=== PATIENT | female | born 1940 | race Caucasian/White ===

== ENCOUNTER 2021-04-15 08:23 | Observation (INO) | payer MEDICARE, OTHER, SELFPAY ==
[2021-04-15] VITALS (11 sets, daily range): BP systolic 160–188; BP diastolic 74–96; PULSE 53–87; RESP 16–21; TEMP 36.4–37; O2SAT 95–100; BMI 23.7
--- NOTE | 2021-04-15 | CTR_ITS ---
PROCEDURE INFORMATION: Exam: CT Head Without Contrast Exam date and time: 04/15/2021 8:36 AM Age: 80 years old Clinical indication: Weakness, facial; Additional info: Stroke alert TECHNIQUE: Imaging protocol: Computed tomography of the head without contrast. Radiation optimization: All CT scans at this facility use at least one of these dose optimization techniques: automated exposure control; mA and/or kV adjustment per patient size (includes targeted exams where dose is matched to clinical indication); or iterative reconstruction. Other technique: STROKE PROTOCOL was implemented. COMPARISON: CT head wo con* [id number] 01/04/2017 2:56 PM RADIATION DOSE METRICS: Total DLP (mGy-cm): 763.25 FINDINGS: Brain: Possible subtle loss of brown-white matter differentiation in the right frontal lobe, concerning for watershed infarct. No hemorrhage, mass effect or midline shift. There is minimal foci of decreased attenuation in the periventricular and subcortical white matter, likely representing chronic small vessel ischemic changes. Mild cerebral volume loss is present. No intra-axial or extra-axial fluid collection seen. Cerebral ventricles: No ventriculomegaly. Bones/joints: Unremarkable. No acute fracture. Paranasal sinuses: There is partial opacification of the right sphenoid sinus and left posterior ethmoid air cells. Mastoid air cells: Visualized mastoid air cells are well aerated. Soft tissues: Unremarkable. CT/CT head wo con* [id number] IMPRESSION: No acute intracranial abnormality. ASSESSMENT: ASPECTS ([place] Stroke Program Early CT Score) is 9-10. THIS REPORT CONTAINS FINDINGS THAT MAY BE CRITICAL TO PATIENT CARE. The findings were verbally communicated via telephone conference with JAZMIN JORGENSEN at 8:52 AM CDT on 04/15/2021. The findings were acknowledged and understood. Radiation Dose CTDIVOL = (mGy): DLP = 763.25 (mGy-cm)
--- NOTE | 2021-04-15 08:34 | ECG_ITS ---
[facility] Test Date: 2021-04-15 Pat Name: Christina Mc Department: Room: 252 Gender: Female Manager Of Data: : 1940 Requested By: Christofer Wilcox Order Number: [id number] Ruby MD: Abimael Amezquita M.D. Measurements Intervals [place] Rate: 68 P: 59 CO: 186 QRS: 37 QRSD: 97 T: 31 QT: 398 QTc: 425 Interpretive Statements SINUS RHYTHM POSSIBLE LEFT ATRIAL ENLARGEMENT [-0.1mV P WAVE IN V1/V2] POSSIBLE RIGHT VENTRICULAR CONDUCTION DELAY [RSR (QR) IN V1/V2] ST DEVIATION AND MODERATE T-WAVE ABNORMALITY, CONSIDER INFERIOR ISCHEMIA [-0.1+ mV T WAVE IN II/aVF] WARNING: DATA QUALITY MAY AFFECT INTERPRETATION Compared to ECG 11/26/2017 09:54:38 T-wave abnormality now present Possible ischemia now present ST (T wave) deviation no longer present Electronically Signed On 04-16-2021 0:41:47 CDT by Abimael Amezquita M.D. [id number]
--- NOTE | 2021-04-15 08:36 | ED_ITS ---
HPI - Neuro Symptoms/Deficit General: Chief Complaint: Neuro Symptoms/Deficit Stated Complaint: Stroke alert Time Seen by Provider: 04/15/21 08:34 History of Present Illness: HPI Narrative: 80-year-old female presents emergency room via EMS with onset of right-sided facial weakness and right arm and leg weakness that began 745 this morning as witnessed by the family. Daughter is at bedside recently moved back home with her. They have noticed progressively worsening cognitive losses as well as a worsening right-sided tremor. When I showed her the tremor at the bedside she states they have noticed that same tremor she has a pill rolling-like tremor. When patient initially arrived to the stroke nurse scored her with a 7. I had arrived shortly after I evaluated her and concurred. After some of the work-up abdomen completed and the family was brought back to the exam room noted that she had improved. Her speech and responsiveness had improved and the extent of her right-sided facial weakness had pretty much resolved. She was able to demonstrate good facial muscle tone follow commands open and close her eyes and smile using all facial muscles and no droop. At rest there still is a little bit of right-sided facial droop. Onset (ago): hour(s) Timing confirmed by: spouse Location: speech History of same: Yes Severity: mild Quality: weak Relieving factors: none Exacerbating factors: none Context: gradual onset On Anticoagulants: Yes Associated symptoms: Reports no associated symptoms, malaise and weakness; Deny chest pain, cough, diaphoresis, fevers/chills, headache(s), nausea, seizures, short of breath, syncope, tingling, vertigo or vomiting Treatments Prior to Arrival: none Review of Systems General: Reports: Other (Review of systems obtained largely from family members.) Const: Reports: malaise; Denies: diaphoresis ENMT: Denies: throat pain, ear or mastoid pain, nasal discharge or nasal congestion Card: Denies: chest pain or syncope Resp: Denies: dyspnea, productive cough or non-productive cough GI: Denies: nausea or vomiting : Denies: flank pain, difficulty voiding, dysuria, urinary frequency or urinary urgency Skin/Breast: Denies: rash or pruritus Neuro: Denies: headache(s) or vertigo PFS ED PFSH: Social History Smoking and tobacco status: never smoked Alcohol intake: never NIH stroke score NIHSS: Level Of Consciousness - 1a: 2 Level Of Consciousness Questions - 1b: One Correct Level Of Consciousness Commands - 1c: Both Correct Best Gaze - 2: Normal Visual Cristina - 3: No Visual Loss Facial Palsy - 4: Partial Paralysis Motor Arm Right - 5: Drift Motor Arm Left - 5: No Drift Motor Leg Right - 6: No Drift Motor Leg Left - 6: No Drift Limb Ataxia - 7: Absent Sensory - 8: Normal Best Language - 9: Mild/Moderate Aphasia Dysarthia - 10: Normal Extinction And Inattention - 11: 0 Score: Total Score: 7 Physical Exam Const: COMMON NORMALS: no acute distress GENERAL APPEARANCE: cooperative and comfortable ORIENTATION/CONSCIOUSNESS: Yes awake, Yes oriented to person, Yes oriented to place and Yes oriented to time HENMT: COMMON NORMALS: normocephalic, atraumatic and hearing grossly normal bilaterally HEAD & SCALP: normocephalic and atraumatic Eye: COMMON NORMALS: Equal, round and reactive pupils present, EOMs intact bilaterally, conjunctivae normal and no scleral icterus CONJUNCTIVA: Yes conjunctivae normal PUPIL: Yes Equal, round and reactive pupils present Neck/C-Spine: COMMON NORMALS: no JVD Resp: COMMON NORMALS: normal respiratory effort, No retractions, No use of accessory muscles and clear to auscultation bilaterally AUSCULTATION: clear to auscultation bilaterally Cardio: COMMON NORMALS: no JVD, regular rate, regular rhythm and No murmurs present (Cardio) RATE: regular rate RHYTHM: regular rhythm GI: COMMON NORMALS: Soft to palpation and No hepatosplenomegaly present AUSCULTATION: Yes normoactive bowel sounds PALPATION: Yes Soft to palpation, No Tenderness to palpation present (GI), No Guarding due to palpation present (GI) and Yes No hepatosplenomegaly present Extremity: COMMON NORMALS: normal to inspection, capillary refill normal, no clubbing, cyanosis or edema, no calf tenderness and no pedal edema Neuro: SENSORIUM/ORIENTATION: Yes oriented to person, Yes oriented to place and Yes oriented to time Skin: COMMON NORMALS: no rashes or lesions noted GENERAL SKIN EXAM: no rashes or lesions noted Course Vital Signs: Vital signs: Vital Signs Temperature 97.6 F 04/15/21 08:26 Pulse Rate 76 04/15/21 09:05 Respiratory Rate 19 H 04/15/21 09:05 Blood Pressure 185/96 04/15/21 09:05 Pulse Oximetry 100 04/15/21 09:05 MDM - Neuro Symptoms/Deficit MDM Narrative: Medical decision making narrative: Her stroke score of 7 is rather questionable. I think a lot of it is due to cognitive disability her tremor and generalized weakness family relates a lot of the things that we scored her for this morning are thing that were present in the past. They had noticed that facial drooping which the daughter agrees as well has improved some discussed the risks and benefits of TPA especially in case where patient has some underlying dementia scoring is quite questionable additionally she is improving some. There is no bleeding there is a question of a area of stroke in the right frontal lobe however given the timeline she presents with today I do not think that has anything to do with her current symptoms. The daughter states that she does not want to pursue any aggressive measures such as TPA at this point after discussion with Dr. Nolan, Dr. Nolan and I both agree that we would not recommend TPA for her at this time. Will admit for further evaluation to rule out possible etiologies and other interventions that may prevent further episodes she will also likely need an MRI. Discussed Dr. Reeder orders are written. Patient has markedly improved her speech and cognition have improved her facial weakness has nearly completely resolved. Reviewed with 2 daughters at the bedside. Lab Data: Labs: Lab Results 04/15/21 04/15/21 04/15/21 Range/Units 08:20 08:20 08:20 WBC 5.3 (4.0-10.0) 10^3/ uL RBC 4.33 (4.1-5.3) 10^6/u L Hgb 13.0 (11.5-15.3) g/dL Hct 38.6 (37.0-47.0) % MCV 89.1 (81-99) fL MCH 30.0 (28.0-34.0) pg MCHC 33.7 (30.0-36.0) g/dL RDW 12.1 (12.1-15.1) % Plt Count 235 (130-400) 10^3/c mm MPV 9.2 (7.4-10.4) fL Neut % (Auto) 55.8 % Lymph % (Auto) 28.4 % [place] % (Auto) 11.7 % Eos % (Auto) 3.0 % Baso % (Auto) 0.9 % Neut # (Auto) 2.95 (1.8-7.7) 10^3/u L Lymph # (Auto) 1.5 (0.8-4.8) 10^3/u L [place] # (Auto) 0.6 (0.2-0.9) 10^3/u L Eos # (Auto) 0.2 (0.0-0.8) 10^3/u L Baso # (Auto) 0.1 (0.0-0.1) 10^3/u L Nucleated RBC % (a uto) 0 % Nucleated RBCs # 0.0 /100WBC PT 12.90 (12.1-14.9) SECO NDS INR 0.95 (0.8-1.2) APTT 24.9 (23.9-36.7) SECO NDS Sodium 129 L (136-145) mmol/L Potassium 4.4 (3.5-5.1) mmol/L Chloride 94 L (98-107) mmol/L Carbon Dioxide 24 (22-29) mmol/L Anion Gap 15.4 (5-19) BUN 16 (8-23) mg/dL Creatinine 0.9 (0.5-0.9) mg/dL GFR Calculation Not Reportable Glucose 98 (65-115) mg/dL Calculated Osmolal ity 269 L (285-295) mOsm/k g Calcium 9.1 (8.5-10.5) mg/dL Total Bilirubin 0.6 (0.15-1.2) mg/dL AST 16 (0-32) U/L ALT 11 (0-33) U/L Alkaline Phosphata se 63 (35-105) IU/L Total Protein 7.1 (6.6-8.7) g/dL Albumin 4.7 (3.5-5.2) g/dL Globulin 2.4 (1.3-4.6) g/dL Discharge Plan Discharge Patient Disposition: Placed in Observation Clinical Impression: Transient cerebral ischemia Coding Level of Care Code ED Progress Developer for g Fwd Exam Comprehensive
[2021-04-15 08:45] LABS: Basophils # 0.1 10^3/uL (0.0-0.1); Basophils % 0.9 %; Eosinophils # 0.2 10^3/uL (0.0-0.8); Hematocrit 38.6 % (37.0-47.0); Lymphocytes # 1.5 10^3/uL (0.8-4.8); Lymphocytes % 28.4 %; Mean Corpuscular HGB Conc 33.7 g/dL (30.0-36.0); Mean Corpuscular Volume 89.1 fL (81-99); Mean Platelet Volume 9.2 fL (7.4-10.4); Monocytes # 0.6 10^3/uL (0.2-0.9); Monocytes % 11.7 %; Neutrophils # 2.95 10^3/uL (1.8-7.7); Neutrophils % 55.8 %; Nucleated Red Blood Cells % 0 %; Platelet Count 235 10^3/cmm (130-400); Red Blood Count 4.33 10^6/uL (4.1-5.3); Red Cell Distribution Width 12.1 % (12.1-15.1); White Blood Count 5.3 10^3/uL (4.0-10.0)
[2021-04-15 09:00] LABS: INR 0.95 (0.8-1.2); Partial Thromboplastin Time 24.9 SECONDS (23.9-36.7)
[2021-04-15 09:01] LABS: Alanine Aminotransferase 11 U/L (0-33); Albumin Level 4.7 g/dL (3.5-5.2); Alkaline Phosphatase 63 IU/L (35-105); Anion Gap 15.4 (5-19); Aspartate Amino Transferase 16 U/L (0-32); Blood Urea Nitrogen 16 mg/dL (8-23); Calcium 9.1 mg/dL (8.5-10.5); Carbon Dioxide 24 mmol/L (22-29); Chloride 94 mmol/L (98-107); Globulin 2.4 g/dL (1.3-4.6); Glucose 98 mg/dL (65-115); Osmolality Calculated 269 mOsm/kg (285-295); Potassium 4.4 mmol/L (3.5-5.1); Sodium 129 mmol/L (136-145); Total Bilirubin 0.6 mg/dL (0.15-1.2); Total Protein 7.1 g/dL (6.6-8.7)
--- NOTE | 2021-04-15 09:06 | PC.PHAR ---
pts family states the pt is only taking metoprolol er 25mg daily and xanax 0.25mg tid prn and some otc meds are entered the pt takes prn-pt was taking lipitor 20mg daily-losartan 100mg daily-norvasc 2.5mg bid vitamin d3 1000 units daily and prozac 40mg daily pts family states the pt hasnt taken in over a month states the dr told them to dc those meds-[facility] states they have a note from 03/13/21 that those meds were dced and pt no longer taking-Dr. Winston med list still has these meds on it but family states pt not taking
--- NOTE | 2021-04-15 09:57 | XRR_ITS ---
PROCEDURE INFORMATION: Exam: XR Chest Exam date and time: 04/15/2021 10:10 AM Age: 80 years old Clinical indication: Cough and dyspnea; Additional info: Dyspnea/cough TECHNIQUE: Imaging protocol: XR of the chest. Views: 1 view. COMPARISON: CR Chest 2 views* [id number] 01/03/2019 10:34 AM FINDINGS: Lungs: The lungs are somewhat hyperinflated with increased interstitial markings, likely representing COPD. No evidence of focal consolidation to suggest pneumonia. Pleural spaces: Unremarkable. No pleural effusion. No pneumothorax. Heart/Mediastinum: Stable cardiomediastinal silhouette. Bones/joints: Unremarkable. XR/XR chest 1V portable [id number] IMPRESSION: No evidence of focal consolidation. COPD changes.
[2021-04-15 10:19] LABS: Add Urine Microscopic? NO; Charge for UA Resulting for Rev
[2021-04-15 10:24] LABS: Bilirubin Urine Neg (Negative); Blood Urine Neg (Negative); Glucose Urine UA Norm (Normal); Ketones Urine Negative (Negative); Leukocyte Esterase Urine Negative (Negative); Nitrate Urine Negative (Negative); Protein Urine Neg (Negative); Urine Appearance Clear (CLEAR); Urine Color Straw (Yellow); Urobilinogen Urine Norm (Negative); pH Urine 5 (5-7)
[2021-04-15] MEDS: aspirin 81 mg Chew Tablet PO (10:35)
--- NOTE | 2021-04-15 12:07 | USCV_ITS ---
Christina Mc Age: 80 Gender: F : 1940 Exam Date: 04/15/2021 12:53 Ordering Phys: Christofer Ennis DO Technologist: Jeanie Sy [place] [facility] [place] BP: / HR: 101 Rhythm: Sinus Technical Quality: Adequate MEASUREMENTS (Male / Female) Normal Values 2D ECHO LV Diastolic Diameter PLAX 4.8 cm 4.2 - 5.9 / 3.9 - 5.3 cm LV Systolic Diameter PLAX 3.6 cm IVS Diastolic Thickness 1.1 cm 0.6 - 1.0 / 0.6 - 0.9 cm IVS Systolic Thickness 1.3 cm LVPW Diastolic Thickness 0.5 cm 0.6 - 1.0 / 0.6 - 0.9 cm LVPW Systolic Thickness 1.4 cm LVOT Diameter 2.1 cm LV Ejection Fraction 2D Teich 50.2 % LV Ejection Fraction MOD 2C 52.1 % LV Ejection Fraction 2C AL 56.2 % LA Diameter 3.2 cm LA Width 3.5 cm LA Height 3.9 cm RA Width 2.9 cm RA Height 3.9 cm Aorta at Sinotubular Diameter 2.8 cm DOPPLER AV Peak Velocity 166.0 cm/s LVOT Peak Velocity 120.0 cm/s AV Area Cont Eq vti 2.5 cm squared AV Area Cont Eq pk 2.5 cm squared MV Peak Velocity 92.0 cm/s MV Area PHT 2.8 cm squared Mitral E to A Ratio 0.7 MV E' Velocity 43.5 cm/s Mitral E to MV E' Ratio 14.5 Mitral E to LV E' Lateral Ratio 12.9 Mitral E to LV E' Septal Ratio 16.5 TR Peak Velocity 82.0 cm/s TR Peak Gradient 2.7 mmHg Right Atrial Pressure 3.0 mmHg Pulmonary Artery Systolic Pressu 5.7 mmHg PV Peak Velocity 116.0 cm/s RV Acceleration Time 0.1 s RV Ejection Time 0.3 s RV AcT/ET 0.4 FINDINGS Left Ventricle Normal left ventricular size, systolic function and wall thickness, with no regional wall motion abnormalities. Left ventricular ejection fraction is estimated at 65-70 %. Grade II diastolic dysfunction, moderately elevated filling pressures. Right Ventricle Normal right ventricular size and systolic function, RVSP 5.7 mmHg. Right Atrium Normal right atrial size. Right atrial pressure estimated at 3 mm Hg. Left Atrium Left atrium not well visualized. Mildly increased left atrial size. Mitral Valve Structurally normal mitral valve. No mitral valve stenosis. Trace mitral valve regurgitation. Aortic Valve Structurally normal trileaflet aortic valve. No aortic valve stenosis. No aortic valve regurgitation. Tricuspid Valve Structurally normal tricuspid valve. Trace tricuspid valve regurgitation. Pulmonic Valve Structurally normal pulmonic valve. No pulmonary valve stenosis. Trace pulmonary valve regurgitation. Pericardium No pericardial effusion. Aorta Normal size aortic root and proximal ascending aorta. Normal sized inferior vena cava. CONCLUSIONS 1. Normal left ventricular size, systolic function and wall thickness, with no regional wall motion abnormalities. Left ventricular ejection fraction is estimated at 65-70 %. Grade II diastolic dysfunction, moderately elevated filling pressures. 2. No significant valvular abnormality. 3. Normal pulmonary artery pressure. 4. Mildly increased left atrial size. 5. No prior similar studies to compare. Yessenia Callaway MD (Electronically Signed) Final Date: 15 Apr 2021 22:13 S
--- NOTE | 2021-04-15 12:07 | MR_ITS ---
WS: [id number] MRI HEAD WITHOUT CONTRAST TECHNIQUE: Sagittal T1, T2 axial, T2 axial FLAIR, axial and coronal T1 images, axial susceptibility w eighted imaging, axial diffusion weighted images, and coronal T2 images were obtained. CLINICAL INFORMATION: TIA COMPARISON: CTA April 15, 2021 FINDINGS: Images significantly degraded by motion artifact. No evidence of restricted diffusion to suggest acute ischemia. Ventricular system and basal cisterns are patent. Moderate small vessel changes. Moderate parenchymal volume loss. Small vessel changes in the sis. Normal vascular flow voids at the skull base. No extra-axial fluid collections. Paranasal s inuses and mastoid air cells well aerated. Moderate symmetric atrophy temporal lobes and hippocampal formations. Normal optic chiasm and pituita ry infundibulum. Cavernous sinuses and Meckel's cave appear normal. No hemosiderin on susceptibly mackenzie ghted images. MR/MR head wo con* [id number] IMPRESSION: 1. Images degraded by motion artifact. 2. No evidence of restricted diffusion to suggest acute ischemia. 3. Moderate small vessel changes with moderate parenchymal volume loss. 4. No hemosiderin on susceptibly weighted images. 5. Moderate symmetric atrophy temporal lobes and hippocampal formations. 6. No extra-axial fluid collections.
--- NOTE | 2021-04-15 12:07 | CT_ITS ---
WS: [id number] CTA HEAD AND NECK TECHNIQUE: Contrast enhanced CTA of the head and neck with coronal and sagittal reformatted images an d maximum intensity projection (MIP) images. NASCET criteria utilized. CLINICAL INFORMATION: TIA COMPARISON: None. DLP: 1605.[address] scans at [facility] use at least one of these dose optimization techniques: automat ed exposure control; mA and/or kV adjustment per patient size (includes targeted exams where dose is matched to clinical indication); or iterative reconstruction. FINDINGS: RIGHT: Right common carotid artery is patent. Mild atheromatous plaque right carotid bulb extending i nto the ICA. No significant right ICA stenosis. Right ICA is patent to the skull base. LEFT: Left common carotid artery is patent. No significant left ICA stenosis. Left ICA is patent to t he skull base. INTRACRANIAL CTA: Codominant and patent vertebral arteries bilaterally. Basilar artery is patent. Nor mal vascularity to the UNIT NURSE territory bilaterally. Both ICAs are patent at the skull base. Normal vascularity to the FARRAH and MCA territory bilaterally. Patent anterior communicating artery. No flow-limiting intracranial stenosis. CT/CT angio headneck* [id number] IMPRESSION: 1. No significant ICA stenosis bilaterally. 2. No flow-limiting intracranial stenosis.
--- NOTE | 2021-04-15 12:21 | PM.HP ---
Providers/Chief Complaint Admitting Physician: Bay Mahoney MD Primary Care Provider: Lee Tyler DO Chief Complaint: Stroke alert History of Present Illness Christina Mc is a 80 year old female who presented to the emergency department with history of abrupt onset of right-sided weakness, right facial droop occurring around 745 this morning. Apparently she spilled her coffee, and was not moving her arm. Right leg was also weak but I am not sure to what degree. Patient has some underlying memory problems, that have been worse in the last 2 weeks but present for at least a year. This makes history difficult and it was augmented by visiting with her daughter and the emergency department physician. She has had no events like this in the past. She has had increasing confusion to the point she would put on things in the refrigerator, and not be able to figure out how certain things worked in the house that she had used all of her life. She was still taking care of toileting. She had had no recent medicine changes. Family reports she was sick in February with diarrhea and had some acute kidney insufficiency at that time which since improved. She also had some very easy bruising for quite some time. They report she has not had Covid, but did receive the second vaccine 2 weeks ago. She has had no fever. No recent diarrhea. Review of Systems General: Reports: 10 or more systems reviewed and unremarkable except in HPI and below Const: Denies: fever(s) or body aches Eyes: Denies: change in vision ENMT: Denies: throat pain Card: Denies: chest pain Resp: Denies: dyspnea GI: Denies: abdominal pain, nausea or vomiting : Denies: flank pain Musc: Denies: neck pain Skin/Breast: Denies: rash Neuro: Reports: weakness in extremities, lack of coordination and confusion Psych: Reports: anxiety and memory loss; Denies: depression Endo: Denies: polyuria Art/Lymph: Reports: easy bruising All/Imm: Denies: urticaria Medications/Allergies Home Medications Medication Instructions Recorded Confirmed Last Taken Type acetaminophen [Tylenol Extra 500 - 1,000 mg PO PRN 04/15/21 04/15/21 04/14/21 History Strength] alprazolam 0.25 mg PO TID PRN 04/15/21 04/15/21 Unknown History metoprolol succinate 25 mg PO QAM 04/15/21 04/15/21 04/14/21 History multivitamin 1 tab PO PRN 04/15/21 04/15/21 Unknown History Allergies Allergy/AdvReac Type Severity Reaction Status Date / Time Penicillins Allergy RASH Verified 04/15/21 09:06 PFSH Acute PFSH: Medical History (Updated 04/15/21 @ 13:17 by Bay Mahoney MD) Anxiety Dementia Hyperlipidemia Hypertension Hyponatremia Tremor Surgical History (Updated 04/15/21 @ 13:10 by Bay Mahoney MD) History of breast biopsy History of repair of rectocele History of vaginal hysterectomy Family History (Updated 04/15/21 @ 13:10 by Bay Mahoney MD) Other Hyperlipidemia Hypertension Social History (Updated 04/15/21 @ 13:10 by Bay Mahoney MD) Smoking and tobacco status: never smoked Alcohol intake: current Alcohol intake frequency: holidays/special occasions only Vitals/I&O/Wt Last Vital Signs Temp 97.6 F 04/15/21 08:26 Pulse 70 04/15/21 10:05 Resp 21 H 04/15/21 10:05 BP 178/88 04/15/21 11:35 Pulse Ox 100 04/15/21 09:05 Weight last 48 hrs Weight 64.637 kg Physical Exam Narrative: EXAM NARRATIVE: General exam is a white female, who has difficulty following instructions. Some word finding difficulty as well. Neurologic: Right facial droop is noted. Right upper extremity is slightly weak. Gait is not tested. HEENT: Pupils equally round. Oropharynx clear. Tongue is midline. Right facial droop noted. Neck is supple no lymphadenopathy, or thyromegaly Cardiovascular regular rate and rhythm with a 2/6 systolic murmur heard best at the right upper sternal border Lungs diminished breath sounds bilaterally but clear Abdomen is soft with positive bowel sounds. No obvious organomegaly was deferred Extremities no cyanosis clubbing or edema, capillary refill is brisk Skin no rash. Multiple bruising sites are noted mainly over her upper extremities. Data : 04/15/21 08:20 04/15/21 08:20 Other data: INR is 0.95 LFTs are normal Urinalysis is negative, including protein Calcium 9.1 CT head Subtle loss of rbown-white differentiation right frontal lobe, question infarct. Cerebral volume loss noted. Chest x-ray shows no acute infiltrate EKG demonstrates sinus rhythm with a normal axis rate is 68. Nonspecific ST-T wave flattening is noted V4 through 6 as well as lateral leads. Left atrial enlargement is likely given biphasic P wave in V1. A&P Assessment and plan (1) Cerebrovascular accident: Symptoms greatly resolved, patient not candidate for TPA after evaluation in the emergency department. Check CTA neck Initiate statin Initiate aspirin 325 mg daily Consideration for Plavix Telemetry Echocardiogram to rule out thrombus or severe valvular abnormality MRI tomorrow, without contrast Therapy consultations with PT/OT/ST Status: Acute (2) Tremor: May have Parkinson's. Tremor right upper extremity, pill-rolling in most noted resting although slight component is present with intention. Some features of masklike facies on exam. Gait was not tested, but will be with physical therapy. Follow-up with neurology as an outpatient Status: Acute (3) Hyponatremia: Close follow-up of sodium tomorrow Check cortisol, random as well as TSH Status: Acute (4) Hyperlipidemia: Initiate statin Status: Acute (5) Anxiety: Continue home medications Status: Acute (6) Dementia: Check B12 level and TSH Patient's family gives history of memory problems greater than 1 year with slow worsening consistent with dementia. Status: Acute Additional A&P Information Full code Lovenox for DVT prophylaxis Attestations Medical Necessity Statement*: Will need less than 2 midnight stay for evaluation and treatment of CVA with good resolution of symptoms Time Spent in Patient Care: Greater than 35 minutes Coding Level of Care Code Acute Draw Bench Operator for Mitchell Bishop Diagnoses Cerebrovascular accident I63.9 Tremor R25.1 Hyponatremia E87.1 Hyperlipidemia E78.5 Anxiety F41.9 Dementia F03.90
[2021-04-15 12:55] LABS: Cortisol Random 30.81 ug/dL (2.47-19.5)
[2021-04-15 13:05] LABS: Thyroid Stimulating Hormone 4.46 uIU/mL (0.27-4.20); Vitamin B12 651 pg/mL (232-1245)
[2021-04-15] MEDS: iohexol 350 mg/mL 100 mL Btl IV (14:05)
[2021-04-15] MEDS: enoxaparin 40 mg/0.4 mL Syringe SUBCUT (14:20)
[2021-04-15] MEDS: sodium chloride 0.9% 1,000 ML 75 ML IV (14:21)
[2021-04-15] MEDS: ALPRAZolam 0.25 mg Tablet PO (20:04)
[2021-04-15] MEDS: atorvastatin 40 mg Tablet PO (20:05)
[2021-04-16 04:00] VITALS: BP 165/82; PULSE 65; RESP 16; TEMP 36.8; O2SAT 96
[2021-04-16 06:27] LABS: Basophils # 0.1 10^3/uL (0.0-0.1); Basophils % 1.3 %; Eosinophils # 0.3 10^3/uL (0.0-0.8); Eosinophils % 5.4 %; Hematocrit 35.7 % (37.0-47.0); Hemoglobin 11.7 g/dL (11.5-15.3); Lymphocytes # 1.3 10^3/uL (0.8-4.8); Lymphocytes % 26.8 %; Mean Corpuscular HGB Conc 32.8 g/dL (30.0-36.0); Mean Corpuscular Hemoglobin 29.7 pg (28.0-34.0); Mean Corpuscular Volume 90.6 fL (81-99); Mean Platelet Volume 9.9 fL (7.4-10.4); Monocytes # 0.6 10^3/uL (0.2-0.9); Monocytes % 12.6 %; Neutrophils # 2.51 10^3/uL (1.8-7.7); Neutrophils % 53.7 %; Nucleated Red Blood Cells % 0 %; Platelet Count 196 10^3/cmm (130-400); Red Blood Count 3.94 10^6/uL (4.1-5.3); Red Cell Distribution Width 12.2 % (12.1-15.1); White Blood Count 4.7 10^3/uL (4.0-10.0)
[2021-04-16 06:41] LABS: Alanine Aminotransferase 11 U/L (0-33); Albumin Level 4.1 g/dL (3.5-5.2); Alkaline Phosphatase 58 IU/L (35-105); Aspartate Amino Transferase 16 U/L (0-32); Blood Urea Nitrogen 13 mg/dL (8-23); Calcium 8.8 mg/dL (8.5-10.5); Carbon Dioxide 24 mmol/L (22-29); Chloride 99 mmol/L (98-107); Globulin 2.1 g/dL (1.3-4.6); Glucose 86 mg/dL (65-115); Osmolality Calculated 277 mOsm/kg (285-295); Sodium 134 mmol/L (136-145); Total Bilirubin 0.6 mg/dL (0.15-1.2); Total Protein 6.2 g/dL (6.6-8.7)
[2021-04-16 06:43] LABS: Anion Gap 14.9 (5-19); Potassium 3.9 mmol/L (3.5-5.1)
[2021-04-16 06:48] LABS: Chol HDL Ratio 2.84 mg/dL (0.0-4.40); Cholesterol 207 mg/dL (0-200); HDL Cholesterol 73 mg/dL (60-100); LDL Cholesterol Calculated 118 mg/dL (50-129); LDL HDL Ratio 1.62 RATIO (0.00-3.22); Triglycerides 80 mg/dL (0-150)
[2021-04-16 08:00] VITALS: BP 134/80; PULSE 72; RESP 18; TEMP 36.5; O2SAT 96
[2021-04-16] MEDS: multivitamin therapeutic Tablet 1 TAB PO (08:51)
[2021-04-16] MEDS: aspirin 325 mg EC Tablet PO (08:51)
[2021-04-16] MEDS: sodium chloride 0.9% 1,000 ML 75 ML IV (08:51)
[2021-04-16] MEDS: ALPRAZolam 0.25 mg Tablet PO (09:06)
--- NOTE | 2021-04-16 09:29 | PC.CHAP ---
Pastoral Care Encounter/Spiritual Assessment Type of Contact [] Declined pants maker visit [] Patient/Family/Request visit [] Outpatient visit [] Follow-up visit [] Physician referral [] Code/Alert [x] Routine visit [] Staff referral [] Actively dying [] Patient sleeping [] Family support [] [] Out of room [] Palliative care [] [] Receiving care in room [] Pre-surgical visit [] Trauma [] Long length of stay [] ICU visit [] Other: Relational/Emotional Strength [] Patient feels connected with others/family/visitors/staff [] Distress [] Loneliness/isolation [] Abandonment Spirituality of Patient [] Person of Eufemia [] Attends Orthodox of their Eufemia [] Believes in Prayer [] Reads Bible or Presybeterian materials [] There are Spiritual issues to be addressed Estimating Engineer Interventions [x] Prayer [] Active listening [] Non-anxious presence [] Spiritual/emotional support [] Crisis/trauma care [] Spiritual counseling [] Bereavement support [] Provided bereavement packet [] Provided Bible/devotional materials [] Provided toy/stuffed animal, coloring book to patient or family member [] Provided Communion [] Anointing/[place] [] Salvation [x] Completed spiritual assessment [] Other: Impact on Illness or Injury [] Angry [] Fearful [] Anxious [] Often cries [] Exhaustion [] Unable to work [] Unable to attend pentecostal [x] Unable to walk/stand [] Unable to read [] Unable to drive [] Unable to eat/drink [] Unable to sleep [] Unable to be with family [] Patient intubated [] Other: Summary patient can not communicate Time spent with patient 10 min
[2021-04-16 11:42] VITALS: BP 120/80; PULSE 66; RESP 17; TEMP 36.5; O2SAT 96
[2021-04-16] MEDS: enoxaparin 40 mg/0.4 mL Syringe SUBCUT (12:01)
--- NOTE | 2021-04-16 12:14 | PM.DCS ---
Discharge Providers Date of Admission: 04/15/21 10:02 Date of Discharge: April 16, 2021 Attending Provider at Admission: Bay Mahoney MD Attending Provider at Discharge: Bay Mahoney MD Primary Care Provider: Lee Tyler DO Diagnoses at Discharge Discharge Diagnosis (1) Cerebrovascular accident: Status: Acute (2) Tremor: Status: Acute (3) Hyponatremia: Status: Acute (4) Hyperlipidemia: Status: Acute (5) Anxiety: Status: Acute (6) Dementia: Status: Acute Reason for Visit Reason for Visit: Stroke alert Hospital Course Hospital Course Christina is a 80-year-old white female with some underlying cognitive defects noted for the last several years by family who presented to the emergency department with acute onset of right upper extremity weakness and right facial droop. She had had significant worsening of her baseline confusion in the last several weeks. For the last year she had also had a tremor of her right upper extremity and family was worried about Parkinson's. Tremor was usually noted at rest. After coming in her deficits resolved rather quickly. She was placed on aspirin, statin. Blood pressure medicine was held to allow for permissive hypertension. LDL was checked in over 100. TSH and B12 were normal. Sodium was slightly low and this corrected with hydration. CT head noncontrast was negative, CTA head and neck demonstrated no flow-limiting lesions. Ultimately an MRI was done demonstrating no obvious CVA, but did have moderate small vessel changes and atrophy temporal and hippocampal formations. Echocardiogram demonstrated normal EF, grade 2 diastolic dysfunction, no severe valvular abnormalities. Rhythm was sinus during her hospital stay. The following day she was much more mobile and able to ambulate quickly, although forgetting to use a walker. I discussed with the family current plans, and they elected to take her home for close monitoring there and to reorient her to that situation considering her underlying dementia. She will follow-up with neurology in 2 weeks for her TIA, underlying dementia, and right upper extremity resting tremor. Her metoprolol was discontinued during the hospital stay for permissive hypertension and blood pressure was 120/80, heart rate of 66 at discharge so it will not be reinitiated. I had questions regarding a visual defect during her hospital stay, but could not get her to really cooperate with that exam. Certainly she had no trouble reaching for, feeding herself, and placing back all items on her tray. I encouraged the family to get her vision checked as an outpatient as well. I think overall her prognosis is poor secondary to her significant dementia which is moderate to severe at this time. Physical Exam Narrative: EXAM NARRATIVE: General exam no apparent distress Cardiovascular regular in rhythm without murmur Lungs clear Abdomen is soft with positive bowel sounds Extremities no cyanosis clubbing or edema Neurologic: No real reductions in strength noted for side to side and upper or lower extremities. Right facial droop does not appear to be present this morning. Discharge Data Data Completed and Pending: Completed Studies During Hospitalization Category Date Time Status CT angio headneck * [id number] Rout ine Cat Scan 04/15/21 12:[address] head wo con* 7 0450 Urgent Cat Scan 04/15/21 Completed XR chest 1V damián ble [id number] Stat Exams 04/15/21 09:57 Completed MR head wo con* 7 0551 Routine MRI 04/15/21 12:07 Completed CV echo complete* [id number] Routine Ultrasound 04/15/21 12:07 Completed Labs from last 24 hours 04/16/21 04/16/21 04/16/21 04:45 04:45 04:45 WBC 4.7 RBC 3.94 L Hgb 11.7 Hct 35.7 L MCV 90.6 MCH 29.7 MCHC 32.8 RDW 12.2 Plt Count 196 MPV 9.9 Neut % (Auto) 53.7 Lymph % (Auto) 26.8 Blanco % (Auto) 12.6 Eos % (Auto) 5.4 Baso % (Auto) 1.3 Neut # (Auto) 2.51 Lymph # (Auto) 1.3 Blanco # (Auto) 0.6 Eos # (Auto) 0.3 Baso # (Auto) 0.1 Nucleated RBC % (a uto) 0 Nucleated RBCs # 0.0 Sodium 134 L Potassium 3.9 Chloride 99 Carbon Dioxide 24 Anion Gap 14.9 BUN 13 Creatinine 0.6 GFR Calculation Not Reportable Glucose 86 Calculated Osmolal ity 277 L Calcium 8.8 Total Bilirubin 0.6 AST 16 ALT 11 Alkaline Phosphata se 58 Total Protein 6.2 L Albumin 4.1 Globulin 2.1 Triglycerides 80 Cholesterol 207 H LDL Cholesterol, C alc 118 HDL Cholesterol 73 LDL/HDL Ratio 1.62 Cholesterol/HDL Ra cuong 2.84 Vitamin B12 TSH Random Cortisol 04/15/21 04/15/21 08:20 08:20 WBC RBC Hgb Hct MCV MCH MCHC RDW Plt Count MPV Neut % (Auto) Lymph % (Auto) Blanco % (Auto) Eos % (Auto) Baso % (Auto) Neut # (Auto) Lymph # (Auto) Blanco # (Auto) Eos # (Auto) Baso # (Auto) Nucleated RBC % (a uto) Nucleated RBCs # Sodium Potassium Chloride Carbon Dioxide Anion Gap BUN Creatinine GFR Calculation Glucose Calculated Osmolal ity Calcium Total Bilirubin AST ALT Alkaline Phosphata se Total Protein Albumin Globulin Triglycerides Cholesterol LDL Cholesterol, C alc HDL Cholesterol LDL/HDL Ratio Cholesterol/HDL Ra cuong Vitamin B12 651 TSH 4.46 H Random Cortisol 30.81 H Vitals: Last Vital Signs Temp 97.7 F 04/16/21 11:42 Pulse 66 04/16/21 11:42 Resp 17 04/16/21 11:42 BP 120/80 04/16/21 11:42 Pulse Ox 96 04/16/21 11:42 Discharge Plan Discharge Patient Disposition: Home Condition: Stable Prescriptions: New atorvastatin 40 mg Tablet 40 mg PO BEDTIME Qty: 30 RF: 0 aspirin 325 mg Tablet,Delayed Release (Dr/Ec) 325 mg PO DAILY Qty: 30 RF: 0 Continued multivitamin Tablet 1 tab PO PRN RF: 0 acetaminophen [Tylenol Extra Strength] 500 mg Tablet 500 - 1,000 mg PO PRN RF: 0 alprazolam 0.25 mg tablet 0.25 mg PO TID PRN (Reason: Anxiety) RF: 0 Discontinued metoprolol succinate 25 mg tablet extended release 24 hr 25 mg PO QAM RF: 0 Discharge Orders: Discharge Order (Routine); Ordered 04/16/21 Ordered By: Bay Mahoney Referrals: Poonam Nolan MD [Physician] - 2 weeks (TIA, dementia, tremor possible Parksinson's) Lee Tyler DO [Primary Care Provider] - 4-7 days Discharge Diet: Regular and Cardiac Discharge Activity: Increase activity as tolerated Patient Instructions: Self Care Measures After a Stroke (DC), Opioid Safety Activity Restrictions/Additional Instructions: Take all medicine as prescribed Keep all follow-up Secondary to memory deficits suggest family member meeting with patient at all times. Discharge Attestations Time Spent in Discharge Care*: greater than 30 min Quality Metrics Clinical Quality Measures During this hospital stay, did patient experience: Stroke Contraindication to Antithrombotic: Antithrombotic prescribed Contraindication to Anticoagulation: Overlap treatment not indicated Contraindication to Statin: Statin prescribed Coding Level of Care Code Acute [facility] note Diagnoses Cerebrovascular accident I63.9 Tremor R25.1 Hyponatremia E87.1 Hyperlipidemia E78.5 Anxiety F41.9 Dementia F03.90
--- NOTE | 2021-04-16 12:48 | PC.NURSE ---
Discharge instructions given to patient and daughter and both verbalized understanding of instructions. patient taken to private vehicle via wheelchair by staff.
[2021-04-16 12:49] VITALS: BP 120/80; PULSE 66; RESP 17; TEMP 36.5; O2SAT 96
== END 2021-04-16 12:50 | disposition home or self-care (01) ==
LOC: ER 10:14 → MEDSURG 10:46
PROVIDERS: Admitting Provider Internal Medicine; Emergency Provider Family Medicine; PCP Family Medicine; Visit Provider Internal Medicine
DX: I63.9 Cerebral infarction, unspecified (principal); R25.1 Tremor, unspecified; E87.1 Hypo-osmolality and hyponatremia; E78.5 Hyperlipidemia, unspecified; F41.9 Anxiety disorder, unspecified; F03.90 Unspecified dementia, unspecified severity, without behavioral disturbance, psychotic disturbance, mood disturbance, and anxiety; I10 Essential (primary) hypertension; Z82.49 Family history of ischemic heart disease and other diseases of the circulatory system
CPT/HCPCS: 36415; 70450; 70496; 70498; 70551; 71045; 80053; 80061; 81003; 82533; 82607; 84443; 85025; 85610; 85730; 92523; 92610; 93005; 93306; 96372; 97110; 97116; 97162; 97166; 99285; G0378; J1650; J7030; Q9967

== ENCOUNTER 2021-04-24 09:58 | Emergency (ER) | payer MEDICARE, OTHER, SELFPAY ==
[2021-04-24 10:25] VITALS: BP 189/104; PULSE 77; RESP 16; TEMP 36.8; O2SAT 98; BMI 24.0
[2021-04-24 10:30] VITALS: BP 176/102; PULSE 81; RESP 18; O2SAT 98
--- NOTE | 2021-04-24 10:52 | XR_ITS ---
WS: [id number] Exam: XR chest 1V portable [id number] Date/Time of Exam: 04/24/2021 10:52 AM Reason For Exam: AMS Comparison 04/15/2021. The lungs are fully expanded and clear. Normal cardiomediastinal structures and bony elements. XR/XR chest 1V portable [id number] IMPRESSION: 1. No acute cardiopulmonary finding. No change.
--- NOTE | 2021-04-24 10:53 | CT_ITS ---
WS: [id number] CT HEAD NONCONTRAST HISTORY: AMS TECHNIQUE: Contiguous axial imaging performed through the brain in 2.5 mm imaging. Bone and soft tiss ue windows. Sagittal and coronal reformats reviewed. All CT scans at [facility] use at ast one of these dose optimization techniques: automated exposure control; mA and/or kV adjustment pe r patient size (includes targeted exams where dose is matched to clinical indication); or iterative r econstruction. DLP: 793.9 mGy.cm COMPARISON: 04/15/2021 No acute intracranial hemorrhage, midline shift or mass effect. Mild atrophy and mild chronic microvascular ischemic disease. No sulcal effacement or new infarct. Ventricles: Normal size with no hydrocephalus. Paranasal sinuses: Mucoperiosteal thickening of fluid in the posterior ethmoid air cells. Mastoid air cells: Well pneumatized. Calvarium and scalp: Skull is intact with no soft tissue edema or swelling. CT/CT head wo con* [id number] IMPRESSION: 1. No acute intracranial hemorrhage or edema. 2. Mild atrophy and chronic ischemic disease. No new area of sulcal effacement .
--- NOTE | 2021-04-24 11:10 | ECG_ITS ---
[facility] Test Date: 2021-04-24 Pat Name: Christina Mc Department: Room: Gender: Female Irrigator: : 1940 Requested By: Christofer Wilcox Order Number: [id number] Ruby MD: Osmany Mooney M.D. Measurements Intervals [place] Rate: 73 P: 74 IN: 198 QRS: 63 QRSD: 93 T: 41 QT: 380 QTc: 420 Interpretive Statements SINUS RHYTHM MINIMAL ST DEPRESSION [0.025+ mV ST DEPRESSION] Compared to ECG 04/15/2021 08:41:58 ST (T wave) deviation now present T-wave abnormality no longer present Possible ischemia no longer present Electronically Signed On 04-24-2021 17:36:53 CDT by Osmany Mooney M.D. [id number]
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
[2021-04-24 11:14] VITALS: BP 172/100; PULSE 74; RESP 18; O2SAT 99
[2021-04-24 11:36] LABS: Basophils # 0.1 10^3/uL (0.0-0.1); Basophils % 0.7 %; Eosinophils # 0.1 10^3/uL (0.0-0.8); Eosinophils % 0.7 %; Hematocrit 36.8 % (37.0-47.0); Hemoglobin 12.5 g/dL (11.5-15.3); Lymphocytes % 14.3 %; Mean Corpuscular Hemoglobin 30.3 pg (28.0-34.0); Mean Corpuscular Volume 89.1 fL (81-99); Mean Platelet Volume 9.1 fL (7.4-10.4); Monocytes # 0.6 10^3/uL (0.2-0.9); Monocytes % 9.2 %; Neutrophils # 5.04 10^3/uL (1.8-7.7); Nucleated Red Blood Cells % 0 %; Platelet Count 205 10^3/cmm (130-400); Red Blood Count 4.13 10^6/uL (4.1-5.3); Red Cell Distribution Width 12.2 % (12.1-15.1); White Blood Count 6.7 10^3/uL (4.0-10.0)
[2021-04-24 11:52] LABS: Add Urine Microscopic? NO; Charge for UA Resulting for Rev
[2021-04-24 12:02] LABS: Lactic Sepsis W/Reflex 0.9 mmol/L (0.5-2.2)
[2021-04-24 12:02] LABS: Amphetamines Screen Urine Negative (Negative); Barbiturates Screen Urine Negative (Negative); Benzodiazepines Screen Urine Positive (Negative); Cocaine Screen Urine Negative (Negative); Opiate Screen Urine Negative (Negative); PCP Screen Urine Negative (Negative); THC Screen Urine Negative (Negative)
[2021-04-24 12:04] LABS: Alanine Aminotransferase 17 U/L (0-33); Alkaline Phosphatase 65 IU/L (35-105); Anion Gap 18.5 (5-19); Aspartate Amino Transferase 21 U/L (0-32); Blood Urea Nitrogen 14 mg/dL (8-23); Calcium 9.4 mg/dL (8.5-10.5); Carbon Dioxide 23 mmol/L (22-29); Chloride 92 mmol/L (98-107); Creatinine Clr Calc Pharmacy 53.2684; Globulin 1.6 g/dL (1.3-4.6); Glucose 103 mg/dL (65-115); Osmolality Calculated 269 mOsm/kg (285-295); Potassium 4.5 mmol/L (3.5-5.1); Sodium 129 mmol/L (136-145); Total Bilirubin 0.6 mg/dL (0.15-1.2); Total Protein 6.6 g/dL (6.6-8.7)
[2021-04-24 12:05] LABS: Troponin(5th) Baseline 13 ng/L (0-10)
[2021-04-24 12:06] LABS: Bilirubin Urine Neg (Negative); Blood Urine Neg (Negative); Glucose Urine UA Norm (Normal); Ketones Urine 1+ (Negative); Nitrate Urine Negative (Negative); Protein Urine Neg (Negative); Specific Gravity, Urine 1.015 (1.005-1.030); Urine Appearance Clear (CLEAR); Urine Color Yellow (Yellow); pH Urine 5 (5-7)
[2021-04-24 12:07] LABS: Leukocyte Esterase Urine Negative (Negative); Urobilinogen Urine Norm (Negative)
[2021-04-24 12:14] VITALS: BP 168/101; PULSE 78; RESP 18; O2SAT 97
[2021-04-24 13:00] VITALS: BP 183/91; PULSE 82; RESP 18; O2SAT 97
--- NOTE | 2021-04-24 13:10 | ECG_ITS ---
[facility] Test Date: 2021-04-24 Pat Name: Christina Mc Department: Room: Gender: Female Hand Welt Butter: : 1940 Requested By: Christofer Wilcox Order Number: [id number] Ruby MD: Osmany Mooney M.D. Measurements Intervals [place] Rate: 66 P: 44 [place]: 189 QRS: 20 QRSD: 88 T: 12 QT: 398 QTc: 418 Interpretive Statements SINUS RHYTHM Compared to ECG 04/24/2021 11:50:44 ST (T wave) deviation no longer present Electronically Signed On 04-24-2021 17:50:36 CDT by Osmany Mooney M.D. [id number]
[2021-04-24] MEDS: amlodipine 5 mg Tablet PO (13:44)
[2021-04-24] MEDS: metoprolol tartrate 1 mg/1 mL SDV 5 mL 2.5 MG IV (13:44)
[2021-04-24 14:04] LABS: Troponin 5 2HR 11.44 ng/L (0-10)
[2021-04-24 14:13] LABS: Troponin 5 2HR Delta -1.56 ABS# (0-10)
[2021-04-24 14:38] VITALS: BP 172/75; PULSE 68; RESP 18; TEMP 37.2; O2SAT 97
== END 2021-04-24 14:42 | disposition home or self-care (01) ==
PROVIDERS: Physician Assistant; Emergency Provider Family Medicine; PCP Family Medicine
DX: F03.90 Unspecified dementia, unspecified severity, without behavioral disturbance, psychotic disturbance, mood disturbance, and anxiety (principal); Z79.82 Long term (current) use of aspirin; E78.5 Hyperlipidemia, unspecified; I10 Essential (primary) hypertension
CPT/HCPCS: 51702; 70450; 71045; 80053; 80306; 81003; 83605; 84484; 85025; 93005; 96374; 99284; J3490

== ENCOUNTER 2021-05-09 15:46 | Outpatient (CLI) | payer MEDICARE, OTHER, SELFPAY ==
[2021-05-09 16:26] LABS: Add Urine Culture? Yes; Add Urine Microscopic? YES; Bacteria Urine 2+ /hpf; Bilirubin Urine Neg (Negative); Blood Urine 3+ (Negative); Glucose Urine UA Norm (Normal); Ketones Urine 1+ (Negative); Leukocyte Esterase Urine 2+ (Negative); Nitrate Urine Negative (Negative); Protein Urine Trace (Negative); Specific Gravity, Urine 1.015 (1.005-1.030); Squamous Epithelial Cell Urine 0-4 /hpf (0-5); Urine Appearance Cloudy (CLEAR); Urine Color Yellow (Yellow); Urobilinogen Urine Norm (Negative); WBC Urine >100 /hpf (0-5); pH Urine 5 (5-7)
== END 2021-05-09 15:47 | disposition home or self-care (01) ==
LOC: LAB 15:54
PROVIDERS: PCP Family Medicine; Visit Provider Family Medicine
DX: N39.0 Urinary tract infection, site not specified (principal)
CPT/HCPCS: 81001; 87077; 87086; 87186

== ENCOUNTER 2021-05-10 08:52 | Emergency (ER) | payer MEDICARE, OTHER, SELFPAY ==
[2021-05-10 08:52] VITALS: BP 118/85; PULSE 88; RESP 16; TEMP 36.6; O2SAT 98
--- NOTE | 2021-05-10 08:59 | CT_ITS ---
WS: [id number] CT HEAD NONCONTRAST HISTORY: fall, closed head injury TECHNIQUE: Contiguous axial imaging performed through the brain in 2.5 mm imaging. Bone and soft tiss ue windows. Sagittal and coronal reformats reviewed. All CT scans at [facility] use at le ast one of these dose optimization techniques: automated exposure control; mA and/or kV adjustment pe r patient size (includes targeted exams where dose is matched to clinical indication); or iterative r econstruction. DLP: 816.39 mGy.cm COMPARISON: 04/24/2021 No acute intracranial hemorrhage, midline shift or mass effect. Mild atrophy and mild chronic ischemic disease. Ventricles: Normal size with no hydrocephalus. Moderate atherosclerosis intracranial carotid arteries. Paranasal sinuses: Mucoperiosteal thickening in the posterior ethmoid air cells. Mastoid air cells: Well pneumatized. Calvarium and scalp: Skull is intact with no soft tissue edema or swelling. CT/CT head wo con* [id number] IMPRESSION: 1. No acute intracranial hemorrhage or edema. 2. Mild atrophy and chronic ischemic disease. No interval change.
--- NOTE | 2021-05-10 08:59 | ECG_ITS ---
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 Measurements Intervals [place] Rate: 79 P: 52 [place]: 170 QRS: 28 QRSD: 89 T: 35 QT: 377 QTc: 435 Interpretive Statements SINUS RHYTHM POSSIBLE LEFT ATRIAL ENLARGEMENT [-0.1mV P WAVE IN V1/V2] MODERATE ST DEPRESSION [0.05+ mV ST DEPRESSION] Compared to ECG 04/24/2021 13:49:58 ST (T wave) deviation now present Electronically Signed On 05-11-2021 23:06:46 CDT by Yessenia Callaway M.D. [id number]
--- NOTE | 2021-05-10 09:07 | ED_ITS ---
HPI - Altered Mental Status General: Chief Complaint: Altered Mental Status Stated Complaint: AMS/ FALL/ AGITATED Time Seen by Provider: 05/10/21 08:55 History of Present Illness: HPI narrative: 80-year-old female resident of a local prison presents to the emergency room today with altered mental status she has some baseline dementia she had an unwitnessed fall yesterday no evidence of head trauma this morning he has a right-sided facial droop increased agitation and confusion today. She has frequently had episodes of hyponatremia in the past that has led to delirium. Patient is not on any anticoagulants. MD complaint: altered mental status and confusion Onset (ago): hour(s) Timing confirmed by: caregiver Severity: moderate Consistency of symptoms: Getting Worse Context: history of similar presentation and other (Unwitnessed fall yesterday) Review of Systems Const: Denies: fever(s), chills, body aches, change in appetite, fatigue or malaise ENMT: Denies: throat pain, ear or mastoid pain, nasal discharge or nasal congestion Card: Denies: chest pain, edema, dyspnea on exertion or orthopnea Resp: Denies: dyspnea, productive cough or non-productive cough GI: Denies: abdominal pain, nausea, vomiting, hematemesis, coffee ground emesis, diarrhea, constipation, bloating, hematochezia or melena : Denies: flank pain, difficulty voiding, dysuria, urinary frequency or urinary urgency Skin/Breast: Denies: rash or pruritus PFS ED PFSH: Medical History Anxiety Dementia Hyperlipidemia Hypertension Hyponatremia Tremor Surgical History History of breast biopsy History of repair of rectocele History of vaginal hysterectomy Family History Other Hyperlipidemia Hypertension Social History Smoking and tobacco status: never smoked Alcohol intake: current Alcohol intake frequency: holidays/special occasions only Physical Exam Const: COMMON NORMALS: no acute distress GENERAL APPEARANCE: cooperative and comfortable ORIENTATION/CONSCIOUSNESS: Yes awake HENMT: COMMON NORMALS: normocephalic, atraumatic, hearing grossly normal bilaterally and external ears normal HEAD & SCALP: normocephalic and atraumatic EXTERNAL EAR: Yes external ears normal Neck/C-Spine: COMMON NORMALS: no JVD Resp: COMMON NORMALS: normal respiratory effort, No retractions, No use of accessory muscles and clear to auscultation bilaterally AUSCULTATION: clear to auscultation bilaterally Cardio: COMMON NORMALS: no JVD, regular rate, regular rhythm and No murmurs present (Cardio) RATE: regular rate RHYTHM: regular rhythm GI: COMMON NORMALS: Soft to palpation and No hepatosplenomegaly present AUSCULTATION: Yes normoactive bowel sounds PALPATION: Yes Soft to palpation, No Tenderness to palpation present (GI), No Guarding due to palpation present (GI) and Yes No hepatosplenomegaly present Extremity: COMMON NORMALS: normal to inspection, capillary refill normal, no c lubbing, cyanosis or edema, no calf tenderness and no pedal edema Skin: COMMON NORMALS: no rashes or lesions noted GENERAL SKIN EXAM: no rashes or lesions noted Course Vital Signs: Vital signs: Vital Signs Temperature 97.8 F 05/10/21 08:52 Pulse Rate 88 05/10/21 08:52 Respiratory Rate 16 05/10/21 08:52 Blood Pressure 118/85 05/10/21 08:52 Pulse Oximetry 98 05/10/21 08:52 MDM - Altered Mental Status MDM Narrative: Medical decision making narrative: Patient has a right-sided facial droop unknown on time of onset evidently woke with this. No other focal deficits noted at this time. She does have a mild cystitis facial droop has improved some patient is a dementia patient will discharge back on Bactrim and follow-up with primary care return for further problems. Lab Data: Labs: Lab Results 05/10/21 05/10/21 05/10/21 Range/Units 09:13 09:13 09:13 WBC 6.8 (4.0-10.0) 10^3/ uL RBC 4.38 (4.1-5.3) 10^6/u L Hgb 13.1 (11.5-15.3) g/dL Hct 38.6 (37.0-47.0) % MCV 88.1 (81-99) fL MCH 29.9 (28.0-34.0) pg MCHC 33.9 (30.0-36.0) g/dL RDW 12.1 (12.1-15.1) % Plt Count 221 (130-400) 10^3/c mm MPV 9.5 (7.4-10.4) fL Neut % (Auto) 73.7 % Lymph % (Auto) 14.2 % [place] % (Auto) 9.2 % Eos % (Auto) 1.9 % Baso % (Auto) 0.9 % Neut # (Auto) 4.98 (1.8-7.7) 10^3/u L Lymph # (Auto) 1.0 (0.8-4.8) 10^3/u L [place] # (Auto) 0.6 (0.2-0.9) 10^3/u L Eos # (Auto) 0.1 (0.0-0.8) 10^3/u L Baso # (Auto) 0.1 (0.0-0.1) 10^3/u L Nucleated RBC % (a uto) 0 % Nucleated RBCs # 0.0 /100WBC Sodium 134 L (136-145) mmol/L Potassium 4.4 (3.5-5.1) mmol/L Chloride 97 L (98-107) mmol/L Carbon Dioxide 24 (22-29) mmol/L Anion Gap 17.4 (5-19) BUN 24 H (8-23) mg/dL Creatinine 1.2 H (0.5-0.9) mg/dL GFR Calculation Not Reportable Glucose 110 (65-115) mg/dL Calculated Osmolal ity 283 L (285-295) mOsm/k g Calcium 9.4 (8.5-10.5) mg/dL Total Bilirubin 1.0 (0.15-1.2) mg/dL AST 20 (0-32) U/L ALT 12 (0-33) U/L Alkaline Phosphata se 69 (35-105) IU/L Creatine Kinase 114 (26-192) U/L Troponin T Baselin e Cancelled Total Protein 6.4 L (6.6-8.7) g/dL Albumin 4.6 (3.5-5.2) g/dL Globulin 1.8 (1.3-4.6) g/dL Urine Color (Yellow) Urine Appearance (CLEAR) Urine pH (5-7) Ur Specific Gravit y (1.005-1.030) Urine Protein (Negative) Urine Glucose (UA) (Normal) Urine Ketones (Negative) Urine Blood (Negative) Urine Nitrate (Negative) Urine Bilirubin (Negative) Urine Urobilinogen (Negative) mg/dL Ur Leukocyte Lelo ase (Negative) Urine RBC (0-2) /hpf Urine WBC (0-5) /hpf Ur Squamous Epith Cells (0-5) /hpf Amorphous Sediment Urine Bacteria (NONE) /hpf Urine Mucus /hpf 05/10/21 05/10/21 Range/Units 09:39 10:47 WBC (4.0-10.0) 10^3/ uL RBC (4.1-5.3) 10^6/u L Hgb (11.5-15.3) g/dL Hct (37.0-47.0) % MCV (81-99) fL MCH (28.0-34.0) pg MCHC (30.0-36.0) g/dL RDW (12.1-15.1) % Plt Count (130-400) 10^3/c mm MPV (7.4-10.4) fL Neut % (Auto) % Lymph % (Auto) % [place] % (Auto) % Eos % (Auto) % Baso % (Auto) % Neut # (Auto) (1.8-7.7) 10^3/u L Lymph # (Auto) (0.8-4.8) 10^3/u L [place] # (Auto) (0.2-0.9) 10^3/u L Eos # (Auto) (0.0-0.8) 10^3/u L Baso # (Auto) (0.0-0.1) 10^3/u L Nucleated RBC % (a uto) % Nucleated RBCs # /100WBC Sodium (136-145) mmol/L Potassium (3.5-5.1) mmol/L Chloride (98-107) mmol/L Carbon Dioxide (22-29) mmol/L Anion Gap (5-19) BUN (8-23) mg/dL Creatinine (0.5-0.9) mg/dL GFR Calculation Glucose (65-115) mg/dL Calculated Osmolal ity (285-295) mOsm/k g Calcium (8.5-10.5) mg/dL Total Bilirubin (0.15-1.2) mg/dL AST (0-32) U/L ALT (0-33) U/L Alkaline Phosphata se (35-105) IU/L Creatine Kinase (26-192) U/L Troponin T Baselin e 25 H Total Protein (6.6-8.7) g/dL Albumin (3.5-5.2) g/dL Globulin (1.3-4.6) g/dL Urine Color Yellow (Yellow) Urine Appearance Hazy A (CLEAR) Urine pH 5 (5-7) Ur Specific Gravit y 1.020 (1.005-1.030) Urine Protein Neg (Negative) Urine Glucose (UA) Norm (Normal) Urine Ketones 1+ H (Negative) Urine Blood 2+ H (Negative) Urine Nitrate Positive H (Negative) Urine Bilirubin Neg (Negative) Urine Urobilinogen Neg (Negative) mg/dL Ur Leukocyte Lelo ase 2+ H (Negative) Urine RBC 5-10 H (0-2) /hpf Urine WBC 15-25 H (0-5) /hpf Ur Squamous Epith Cells 0-4 H (0-5) /hpf Amorphous Sediment Not Reportable Urine Bacteria 3+ H (NONE) /hpf Urine Mucus 1+ /hpf Discharge Plan Discharge Patient Disposition: Home Clinical Impression: Cystitis Condition: Stable Prescriptions: New Macrobid 100 mg capsule 100 mg PO BID 7 Days Qty: 14 RF: 0 No Action alprazolam 0.25 mg tablet 0.25 mg PO TID PRN (Reason: Anxiety) RF: 0 acetaminophen 325 mg Tablet 650 mg PO Q6H PRN (Reason: Pain) RF: 0 Anti-Diarrhea 2 mg Tablet See Rx Instructions .ROUTE .COMPLEX RF: 0 Milk of Magnesia 400 mg/5 mL Suspension See Rx Instructions .ROUTE .COMPLEX RF: 0 bisacodyl 10 mg Suppository See Rx Instructions .ROUTE .COMPLEX RF: 0 Mylanta See Rx Instructions .ROUTE .COMPLEX RF: 0 atorvastatin 40 mg tablet 40 mg PO BEDTIME@20 RF: 0 aspirin 325 mg tablet,delayed release (DR/EC) 325 mg PO DAILY@08 RF: 0 Discharge Orders: Discharge ED (Routine); Ordered 05/10/21 Ordered By: Christofer Ennis Referrals: Nayeli,Lee F, [Primary Care Provider] - Discharge Diet: Usual diet Discharge Activity: Resume usual activity Patient Instructions: Opioid Safety Coding Level of Care Code ED Calender Roll Operator for Chg Fwd Exam Comprehensive
[2021-05-10 09:24] LABS: Basophils # 0.1 10^3/uL (0.0-0.1); Basophils % 0.9 %; Eosinophils # 0.1 10^3/uL (0.0-0.8); Eosinophils % 1.9 %; Hematocrit 38.6 % (37.0-47.0); Hemoglobin 13.1 g/dL (11.5-15.3); Lymphocytes % 14.2 %; Mean Corpuscular HGB Conc 33.9 g/dL (30.0-36.0); Mean Corpuscular Hemoglobin 29.9 pg (28.0-34.0); Mean Corpuscular Volume 88.1 fL (81-99); Mean Platelet Volume 9.5 fL (7.4-10.4); Monocytes # 0.6 10^3/uL (0.2-0.9); Monocytes % 9.2 %; Neutrophils # 4.98 10^3/uL (1.8-7.7); Neutrophils % 73.7 %; Nucleated Red Blood Cells % 0 %; Platelet Count 221 10^3/cmm (130-400); Red Blood Count 4.38 10^6/uL (4.1-5.3); Red Cell Distribution Width 12.1 % (12.1-15.1); White Blood Count 6.8 10^3/uL (4.0-10.0)
[2021-05-10 09:38] LABS: Alanine Aminotransferase 12 U/L (0-33); Albumin Level 4.6 g/dL (3.5-5.2); Alkaline Phosphatase 69 IU/L (35-105); Anion Gap 17.4 (5-19); Aspartate Amino Transferase 20 U/L (0-32); Blood Urea Nitrogen 24 mg/dL (8-23); Calcium 9.4 mg/dL (8.5-10.5); Carbon Dioxide 24 mmol/L (22-29); Chloride 97 mmol/L (98-107); Creatine Phosphokinase 114 U/L (26-192); Globulin 1.8 g/dL (1.3-4.6); Glucose 110 mg/dL (65-115); Osmolality Calculated 283 mOsm/kg (285-295); Potassium 4.4 mmol/L (3.5-5.1); Sodium 134 mmol/L (136-145); Total Protein 6.4 g/dL (6.6-8.7)
[2021-05-10 10:01] LABS: Troponin(5th) Baseline 25 ng/L (0-10)
--- NOTE | 2021-05-10 10:59 | ECG_ITS ---
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 Measurements Intervals [place] Rate: 67 P: 67 [place]: 176 QRS: 45 QRSD: 92 T: 43 QT: 412 QTc: 435 Interpretive Statements SINUS RHYTHM POSSIBLE LEFT ATRIAL ENLARGEMENT [-0.1mV P WAVE IN V1/V2] MINIMAL ST DEPRESSION [0.025+ mV ST DEPRESSION] Compared to ECG 05/10/2021 09:11:27 No significant changes Electronically Signed On 05-11-2021 23:17:20 CDT by Yessenia Callaway M.D. [id number]
[2021-05-10 11:02] LABS: Add Urine Microscopic? YES; Bilirubin Urine Neg (Negative); Blood Urine 2+ (Negative); Glucose Urine UA Norm (Normal); Ketones Urine 1+ (Negative); Leukocyte Esterase Urine 2+ (Negative); Nitrate Urine Positive (Negative); Protein Urine Neg (Negative); Urine Appearance Hazy (CLEAR); Urine Color Yellow (Yellow); Urobilinogen Urine Neg (Negative); pH Urine 5 (5-7)
[2021-05-10 11:03] LABS: Bacteria Urine 3+ /hpf; Mucus Urine 1+ /hpf; Squamous Epithelial Cell Urine 0-4 /hpf (0-5); WBC Urine 15-25 /hpf (0-5)
[2021-05-10 11:04] LABS: Add Urine Culture? Yes
== END 2021-05-10 11:43 | disposition home or self-care (01) ==
PROVIDERS: Emergency Provider Family Medicine; PCP Family Medicine
DX: N30.90 Cystitis, unspecified without hematuria (principal); Z79.82 Long term (current) use of aspirin; F03.90 Unspecified dementia, unspecified severity, without behavioral disturbance, psychotic disturbance, mood disturbance, and anxiety; E78.5 Hyperlipidemia, unspecified; I10 Essential (primary) hypertension
CPT/HCPCS: 70450; 80053; 81001; 82550; 84484; 85025; 87077; 87086; 87186; 93005; 99283

== ENCOUNTER 2021-06-11 14:59 | Outpatient (CLI) | payer MEDICARE, OTHER, SELFPAY ==
[2021-06-11 17:28] LABS: Add Urine Microscopic? YES; Bilirubin Urine Neg (Negative); Blood Urine Neg (Negative); Glucose Urine UA Norm (Normal); Ketones Urine Negative (Negative); Leukocyte Esterase Urine 2+ (Negative); Nitrate Urine Negative (Negative); Protein Urine Neg (Negative); Urine Color Yellow (Yellow); Urobilinogen Urine Norm (Negative); pH Urine 5 (5-7)
[2021-06-11 17:32] LABS: Add Urine Culture? Yes; Bacteria Urine 2+ /hpf; Squamous Epithelial Cell Urine 0-4 /hpf (0-5)
[2021-06-11 17:44] LABS: Urine Appearance Clear (CLEAR)
== END 2021-06-11 15:00 | disposition home or self-care (01) ==
LOC: LAB 15:00
PROVIDERS: PCP Family Medicine; Visit Provider Family Medicine
DX: N39.0 Urinary tract infection, site not specified (principal)
CPT/HCPCS: 81001; 87077; 87086; 87186

== ENCOUNTER 2021-08-17 13:55 | Outpatient (CLI) | payer MEDICARE, OTHER, SELFPAY ==
[2021-08-17 14:20] LABS: Glucose Urine UA Norm (Normal); Protein Urine Neg (Negative); Specific Gravity, Urine 1.015 (1.005-1.030); Urine Appearance Clear (CLEAR); Urine Color Yellow (Yellow); pH Urine 7 (5-7)
[2021-08-17 14:21] LABS: Add Urine Microscopic? YES; Bilirubin Urine Neg (Negative); Blood Urine Neg (Negative); Ketones Urine Negative (Negative); Leukocyte Esterase Urine 1+ (Negative); Nitrate Urine Negative (Negative); Urobilinogen Urine 1 mg/dL (Negative)
[2021-08-17 14:22] LABS: Add Urine Culture? No; Bacteria Urine TRACE /hpf; Mucus Urine TRACE /hpf
== END 2021-08-17 13:56 | disposition home or self-care (01) ==
PROVIDERS: PCP Family Medicine; Visit Provider Family Medicine
DX: Z01.89 Encounter for other specified special examinations (principal)
CPT/HCPCS: 81001; 87086

== ENCOUNTER 2021-08-19 08:16 | Inpatient (IN) | payer MEDICARE, OTHER, SELFPAY ==
[2021-08-19] VITALS (14 sets, daily range): BP systolic 88–155; BP diastolic 48–99; PULSE 66–84; RESP 12–18; TEMP 36.2–36.9; O2SAT 93–100
--- NOTE | 2021-08-19 08:27 | XRR_ITS ---
PROCEDURE INFORMATION: Exam: XR Right Knee Exam date and time: 08/19/2021 8:27 AM Age: 81 years old Clinical indication: Injury or trauma; Fall; Blunt trauma; Injury details: History--fell 2 days ago, pain in right hip, knee, unable to give full history; Additional info: Trauma/fall TECHNIQUE: Imaging protocol: XR Right knee. Views: 3 views. COMPARISON: No relevant prior studies available. FINDINGS: Bones/joints: Normal. Soft tissues: Normal. XR/XR knee RT 3V* [id number] IMPRESSION: No acute findings.
--- NOTE | 2021-08-19 08:27 | XRR_ITS ---
PROCEDURE INFORMATION: Exam: XR Right Hip Exam date and time: 08/19/2021 8:27 AM Age: 81 years old Clinical indication: Injury or trauma; Fall; Blunt trauma (contusions or hematomas); Injury details: History--fell 2 days ago, pain in right hip, knee, unable to give full history; Additional info: Trauma/fall TECHNIQUE: Imaging protocol: XR Right hip. Views: 1 view hip with pelvis when performed. COMPARISON: CR Sacroiliac Joints [id number] 12/09/2017 1:01 PM FINDINGS: Bones/joints: There is an impacted transverse fracture through the right femoral neck with varus deformity. The visualized portion of the pelvis is unremarkable. Soft tissues: Unremarkable. XR/XR hip RT 2-3V wo/w pel* [id number] IMPRESSION: Right femoral neck fracture.
--- NOTE | 2021-08-19 08:28 | ECG_ITS ---
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
--- NOTE | 2021-08-19 08:28 | XRR_ITS ---
PROCEDURE INFORMATION: Exam: XR Chest Exam date and time: 08/19/2021 8:28 AM Age: 81 years old Clinical indication: Injury or trauma; Fall; Blunt trauma (contusions or hematomas); Injury details: History--fell 2 days ago, pain in right hip, knee, unable to give full history; Additional info: Dyspnea/cough TECHNIQUE: Imaging protocol: XR of the chest. Views: 1 view. COMPARISON: CR XR chest 1V portable [id number] 04/24/2021 11:07 AM FINDINGS: Lungs: There is small benign left pulmonary hilar lymph nodes. The lungs are clear with no pneumonia. Pleural spaces: Unremarkable. No pleural effusion. No pneumothorax. Heart/Mediastinum: See Lungs finding. Bones/joints: Unremarkable. XR/XR chest 1V portable [id number] IMPRESSION: No significant cardiopulmonary abnormality.
--- NOTE | 2021-08-19 08:30 | ED_ITS ---
HPI - Fall General: Chief Complaint: Fall Stated Complaint: FALL, R HIP PAIN Time Seen by Provider: 08/19/21 08:19 History of Present Illness: HPI Narrative: 81-year-old female who is resident of a local assisted living facility. She was down an unknown length of time. This morning she was found by staff down in her apartment complaining of right hip pain with abrasions to her right knee skin tear on her right elbow. Story of stroke clinically she appears to have Parkinson's as well. She denies taking any blood thinners besides aspirin as she is uncertain if she had any loss of consciousness. We are still checking with staff to get an idea of how long her downtime was. She is not regularly really able to go to give us any timeframe of when she fell and how long she was down. No chest pain no shortness of breath no abdominal pain. Pt has not had COVID in the past that she is aware of but has been vaccinated. MD complaint: fall Onset (ago): unknown Fall from: standing Fall witnessed: no Place fall occurred: retirement/SNF Loss of consciousness: None Prolonged down time: unclear Context: tripped/slipped Location of injury: pelvis (Right hip) Location of injury - extremities: Right: elbow and knee Severity: mild Quality: sharp Associated symptoms-after fall: Reports difficulty walking and weakness; Denies abdominal pain, chest pain, confusion, headache(s), hematuria, lightheadedness, neck pain, numbness, short of breath or vertigo Review of Systems Const: Reports: fatigue and malaise; Denies: fever(s), chills, body aches or change in appetite Card: Denies: chest pain or lightheadedness Resp: Denies: dyspnea, productive cough or non-productive cough GI: Denies: abdominal pain : Denies: hematuria Musc: Denies: neck pain Skin/Breast: Denies: rash or pruritus Neuro: Reports: difficulty walking; Denies: headache(s), vertigo or confusion PFS ED PFSH: Medical History Anxiety Dementia Hyperlipidemia Hypertension Hyponatremia Tremor Surgical History History of breast biopsy History of repair of rectocele History of vaginal hysterectomy Family History Other Hyperlipidemia Hypertension Social History Smoking and tobacco status: never smoked Alcohol intake: current Alcohol intake frequency: holidays/special occasions only Physical Exam Const: COMMON NORMALS: no acute distress GENERAL APPEARANCE: cooperative and comfortable HENMT: COMMON NORMALS: normocephalic and atraumatic HEAD & SCALP: normocephalic and atraumatic Neck/C-Spine: COMMON NORMALS: no JVD Resp: COMMON NORMALS: normal respiratory effort, No retractions, No use of accessory muscles and clear to auscultation bilaterally AUSCULTATION: clear to auscultation bilaterally Cardio: COMMON NORMALS: no JVD, regular rate, regular rhythm and No murmurs present (Cardio) RATE: regular rate RHYTHM: regular rhythm GI: COMMON NORMALS: Soft to palpation and No hepatosplenomegaly present AUSCULTATION: Yes normoactive bowel sounds PALPATION: Yes Soft to palpation, No Tenderness to palpation present (GI), No Guarding due to palpation present (GI) and Yes No hepatosplenomegaly present Extremity: OTHER: Minor skin tears on the right elbow, abrasion to the right knee. Patient refers pain to the right hip was not manipulated no pain in the left lower extremity. No pain in the upper extremities bilaterally. Skin: COMMON NORMALS: no rashes or lesions noted GENERAL SKIN EXAM: no rashes or lesions noted Course Vital Signs: Vital signs: Vital Signs Temperature 97.6 F 08/19/21 10:26 Pulse Rate 74 08/19/21 10:26 Respiratory Rate 16 08/19/21 10:26 Blood Pressure 126/77 08/19/21 10:26 Pulse Oximetry 99 08/19/21 10:26 MDM - Fall MDM Narrative: Medical decision making narrative: Labs imaging any imaging and EKG reviewed. Patient has a displaced transcervical hip fracture. Will admit consult Ortho and hospitalist orders written. Preop labs completed. Discharge Plan Discharge Patient Disposition: Admitted As Inpatient Admit Provider: Bay Mahoney Clinical Impression: Fracture of femoral neck, right, History of cerebrovascular accident, Hyponatremia, Hypertension Condition: Stable Coding Level of Care Code ED Cooperative Extension Agent for Chg Fwd Exam Detailed
[2021-08-19] MEDS: ondansetron 2 mg/ML SDV 2 mL 4 MG IVP ×2 (09:41→13:05)
[2021-08-19] MEDS: morphine 4 mg/mL SDV 1 mL IVP (09:41)
[2021-08-19 09:42] LABS: Basophils % 0.2 %; Hematocrit 34.1 % (37.0-47.0); Hemoglobin 11.6 g/dL (11.5-15.3); Lymphocytes # 0.4 10^3/uL (0.8-4.8); Lymphocytes % 2.4 %; Mean Corpuscular Hemoglobin 30.5 pg (28.0-34.0); Mean Corpuscular Volume 89.7 fl (81-99); Mean Platelet Volume 9.1 fL (7.4-10.4); Monocytes # 1.2 10^3/uL (0.2-0.9); Monocytes % 7.1 %; Neutrophils # 15.46 10^3/uL (1.8-7.7); Neutrophils % 89.8 %; Nucleated Red Blood Cells % 0 %; Platelet Count 251 10^3/cmm (130-400); Red Cell Distribution Width 12.8 % (12.1-15.1); White Blood Count 17.2 10^3/uL (4.0-10.0)
[2021-08-19] MEDS: tetanus-diphtheria tox (adult) 0.5 mL SDV IM (09:56)
--- NOTE | 2021-08-19 09:57 | PC.PHAR ---
[facility]states they are sill trying to fax pts lauren states the pt hasnt had any am medications today
[2021-08-19 10:02] LABS: Alanine Aminotransferase 18 U/L (0-33); Albumin Level 4.3 g/dL (3.5-5.2); Alkaline Phosphatase 84 IU/L (35-105); Aspartate Amino Transferase 26 U/L (0-32); Blood Urea Nitrogen 13 mg/dL (8-23); Calcium 9.5 mg/dL (8.5-10.5); Carbon Dioxide 25 mmol/L (22-29); Chloride 90 mmol/L (98-107); Globulin 2.6 g/dL (1.3-4.6); Glucose 137 mg/dL (65-115); Osmolality Calculated 266 mOsm/kg (285-295); Sodium 127 mmol/L (136-145); Total Bilirubin 0.9 mg/dL (0.15-1.2); Total Protein 6.9 g/dL (6.6-8.7)
[2021-08-19 10:06] LABS: Creatine Phosphokinase 437 U/L (26-192)
[2021-08-19 10:16] LABS: Add Urine Microscopic? YES; Bilirubin Urine Neg (Negative); Blood Urine 2+ (Negative); Glucose Urine UA 1+ (Normal); Ketones Urine Negative (Negative); Leukocyte Esterase Urine Negative (Negative); Nitrate Urine Negative (Negative); Protein Urine 2+ (Negative); RBC Urine RARE /hpf (0-2); Specific Gravity, Urine 1.015 (1.005-1.030); Squamous Epithelial Cell Urine RARE /hpf (0-5); Sulfosalicylic Acid Urine Trace (Negative); Urine Appearance Cloudy (CLEAR); Urine Color Yellow (Yellow); Urobilinogen Urine Norm (Negative); WBC Urine 0-4 /hpf (0-5); pH Urine 8 (5-7)
[2021-08-19 10:17] LABS: Bacteria Urine TRACE /hpf
[2021-08-19 11:01] LABS: Thyroid Stimulating Hormone 1.93 uIU/mL (0.27-4.20)
--- NOTE | 2021-08-19 12:12 | ANES.PREANE2 ---
Pre-Anesthetic Assessment Pre-Anesthetic Assessment: Height/Weight: Height 1.65 m Weight 54.431 kg Temp Pulse Resp BP Pulse Ox 97.4 F L 72 18 143/75 97 08/19/21 10:55 08/19/21 10:55 08/19/21 10:55 08/19/21 10:55 08/19/21 10:55 Proposed Procedure: Operation Date: 08/19/21 14:45 Proposed Procedures p Hemiarthroplasty Hip(Right) - Christopher Perdue DO Was Beta Raz taken within 24 hours: N/A Was Clonidine taken within 24 hours: N/A Social: Social History: No alcohol and No tobacco Exam: Pre-Anes Outpt Exam: alert, oriented x 3, clear to auscultation bilaterally and regular rate & rhythm Airway: Submandibular: WNL Cervical ROM: WNL MP: 2 Additional comments: Missing some CV/HEM: CV/HEM: HTN Neuropsych: Neuropsych: Anxiety, CVA, Dementia and Depression Anesthetic Plan: ASA status: 3 Anesthesia: Regional (specify below) (SAB) Risk of > 500 ml blood loss (7ml/kg in children): No PFSH Anesthesia PFSH: Medical History Anxiety Dementia Hyperlipidemia Hypertension Hyponatremia Tremor Surgical History History of breast biopsy History of repair of rectocele History of vaginal hysterectomy Family History Other Hyperlipidemia Hypertension Social History Smoking and tobacco status: never smoked Alcohol intake: current Alcohol intake frequency: holidays/special occasions only Data Anesthesia CBC & Chem 7: 08/19/21 09:35 08/19/21 09:35 Other Labs: Laboratory Results - last 48 hr 08/19/21 08/19/21 08/19/21 09:35 09:35 09:35 WBC 17.2 H RBC 3.80 L Hgb 11.6 Hct 34.1 L MCV 89.7 MCH 30.5 MCHC 34.0 RDW 12.8 Plt Count 251 MPV 9.1 Neut % (Auto) 89.8 Lymph % (Auto) 2.4 [place] % (Auto) 7.1 Eos % (Auto) 0.0 Baso % (Auto) 0.2 Neut # (Auto) 15.46 H Lymph # (Auto) 0.4 L [place] # (Auto) 1.2 H Eos # (Auto) 0.0 Baso # (Auto) 0.0 Nucleated RBC % (auto) 0 Nucleated RBCs # 0.0 Sodium 127 L Potassium 4.0 Chloride 90 L Carbon Dioxide 25 Anion Gap 16.0 BUN 13 Creatinine 0.7 GFR Calculation Not Reportable Glucose 137 H Calculated Osmolality 266 L Calcium 9.5 Total Bilirubin 0.9 AST 26 ALT 18 Alkaline Phosphatase 84 Creatine Kinase 437 H* Total Protein 6.9 Albumin 4.3 Globulin 2.6 TSH Urine Color Yellow Urine Appearance Cloudy Urine pH 8 H Ur Specific [place] 1.015 Urine Protein 2+ H Urine Glucose (UA) 1+ H Urine Ketones Negative Urine Blood 2+ H Urine Nitrate Negative Urine Bilirubin Neg Prot Sulfosalicylic Acd Trace Urine Urobilinogen Norm Ur Leukocyte Esterase Negative Urine RBC Rare Urine WBC 0-4 H Ur Squamous Epith Cells Rare Amorphous Sediment Not Reportable Urine Bacteria Trace 08/19/21 09:35 WBC RBC Hgb Hct MCV MCH MCHC RDW Plt Count MPV Neut % (Auto) Lymph % (Auto) [place] % (Auto) Eos % (Auto) Baso % (Auto) Neut # (Auto) Lymph # (Auto) [place] # (Auto) Eos # (Auto) Baso # (Auto) Nucleated RBC % (auto) Nucleated RBCs # Sodium Potassium Chloride Carbon Dioxide Anion Gap BUN Creatinine GFR Calculation Glucose Calculated Osmolality Calcium Total Bilirubin AST ALT Alkaline Phosphatase Creatine Kinase Total Protein Albumin Globulin TSH 1.93 Urine Color Urine Appearance Urine pH Ur Specific [place] Urine Protein Urine Glucose (UA) Urine Ketones Urine Blood Urine Nitrate Urine Bilirubin Prot Sulfosalicylic Acd Urine Urobilinogen Ur Leukocyte Esterase Urine RBC Urine WBC Ur Squamous Epith Cells Amorphous Sediment Urine Bacteria Cardiac Studies: No Data to Display
--- NOTE | 2021-08-19 12:59 | P.CONIM_ITS ---
Documented by User: CINDY Porter 08/19/21 13:12 Providers/Reason For Consult Consulting Physician/Specialty*: Dr Perdue [facility] Reason for Consult*: Right Hip Pain Attending Physician: Bay Mahoney MD Primary Care Provider: Lee Tyler DO History of Present Illness History of Present Illness Christina Mc is a 81 year old female who presents to [facility] emergency room following a fall at a nursing facility on 08/19/2021. Orthopedics was then consulted regarding a right hip fracture following radiographs in the emergency room. Upon evaluation with family present she describes right hip pain has been constant sharp stabbing in nature any movement making it much worse. She is not found to make things better. She does suffer from dementia the family provides most of the history. Patient is alert in PACU with family present. Any movement of the right hip seems to make her much worse. She has not found much to make things better she ranks it as 8 out of 10 on the pain scale. She denies any back or shoulder pain denies any loss of conscious in the fall. Activities seem to make it much worse. She is not been able to stand due to the pain in the right hip. Extensive review of the patient past medical history, surgical history, allergies, medications, family history, social history and review of systems were completed. Review of Systems General: Reports: 10 or more systems reviewed and unremarkable except in HPI and below and ROS unobtainable due to mental status Meds/Allergies Home Medications and Allergies Home Medications Medication Instructions Recorded Confirmed Last Taken Type alprazolam 0.25 mg PO TID PRN 04/15/21 08/19/21 Unknown History Mylanta See Rx Instructions .ROUTE .COMPLEX 05/10/21 08/19/21 Unknown History acetaminophen 650 mg PO Q6H PRN 05/10/21 08/19/21 Unknown History aspirin 325 mg PO DAILY@05/10/21 08/19/21 08/18/21 History atorvastatin 40 mg PO BEDTIME@05/10/21 08/19/21 08/18/21 History bisacodyl See Rx Instructions .ROUTE .COMPLEX 05/10/21 08/19/21 Unknown History loperamide [Anti-Diarrhea] See Rx Instructions .ROUTE .COMPLEX 05/10/21 08/19/21 Unknown History magnesium hydroxide [Milk of See Rx Instructions .ROUTE .COMPLEX 05/10/21 08/19/21 Unknown History Magnesia] acetaminophen [Tylenol Extra 500 mg PO DAILY@20 08/19/21 08/19/21 08/18/21 History Strength] cetirizine [Zyrtec] 10 mg PO DAILY PRN 08/19/21 08/19/21 Unknown History Allergies Allergy/AdvReac Type Severity Reaction Status Date / Time Penicillins Allergy RASH Verified 04/15/21 09:06 PFSH Acute PFSH: Medical History Anxiety Dementia Hyperlipidemia Hypertension Hyponatremia Tremor Surgical History History of breast biopsy History of repair of rectocele History of vaginal hysterectomy Family History Other Hyperlipidemia Hypertension Social History Smoking and tobacco status: never smoked Alcohol intake: current Alcohol intake frequency: holidays/special occasions only Vitals/I&O/Wt Last Vital Signs Temp 97.4 F L 08/19/21 10:55 Pulse 72 08/19/21 10:55 Resp 18 08/19/21 10:55 BP 143/75 08/19/21 10:55 Pulse Ox 97 08/19/21 10:55 Weight last 48 hrs Weight 120 lb Physical Exam Const: COMMON NORMALS: alert EXAM LIMITATIONS: altered mental status HENMT: COMMON NORMALS: normocephalic HEAD & SCALP: normocephalic Neck/C-Spine: GENERAL: Yes normal visual inspection Resp: COMMON NORMALS: normal respiratory effort Cardio: COMMON NORMALS: regular rate and regular rhythm RATE: regular rate RHYTHM: regular rhythm GI: COMMON NORMALS: Soft to palpation PALPATION: Yes Soft to palpation Extremity: COMMON NORMALS: capillary refill normal GENERAL: Yes deformity RIGHT LOWER EXTREMITY: Yes hip joint OTHER: Positive logroll in the right with obvious deformity. Negative logroll on the left. Feet warm good cap refill calfs are supple no medial thigh tenderness. Pain with palpation throughout the right hip. No palpable pain in the low back. Dorsalis pedis posterior pulses are palpable in both lower extremities skin is clear warm femoral good cap refill she wiggles all digits. Neuro: SENSORIUM/ORIENTATION: Yes alert Psych: COMMON NORMALS: cooperative Skin: COMMON NORMALS: no rashes or lesions noted GENERAL SKIN EXAM: no rashes or lesions noted A&P Assessment and plan (1) Displaced fracture of right femoral neck: Discussed with her and the family to proceed with open reduction internal fixation with a right hip hemiarthroplasty. Will await medical clearance. Discussed this with Dr. Perdue he agrees with the above-stated plan. Status: Acute Coding Level of Care Code Acute Jig And Fixture Repairer for [facility] Fwd Exam Comprehensive Diagnoses Displaced fracture of right femoral neck S72.001A Documented by User: Christopher Perdue DO 08/19/21 14:18 Review of Systems General: Reports: 10 or more systems reviewed and unremarkable except in HPI and below and ROS unobtainable due to mental status Const: Reports: fatigue and malaise; Denies: fever(s), chills, body aches or change in appetite Card: Denies: chest pain or lightheadedness Resp: Denies: dyspnea, productive cough or non-productive cough GI: Denies: abdominal pain : Denies: hematuria Musc: Denies: neck pain Skin/Breast: Denies: rash or pruritus Neuro: Reports: difficulty walking; Denies: headache(s), vertigo or confusion Meds/Allergies Home Medications and Allergies Home Medications Medication Instructions Recorded Confirmed Last Taken Type alprazolam 0.25 mg PO TID PRN 04/15/21 08/19/21 Unknown History Mylanta See Rx Instructions .ROUTE .COMPLEX 05/10/21 08/19/21 Unknown History acetaminophen 650 mg PO Q6H PRN 05/10/21 08/19/21 Unknown History aspirin 325 mg PO DAILY@05/10/21 08/19/21 08/18/21 History atorvastatin 40 mg PO BEDTIME@05/10/21 08/19/21 08/18/21 History bisacodyl See Rx Instructions .ROUTE .COMPLEX 05/10/21 08/19/21 Unknown History loperamide [Anti-Diarrhea] See Rx Instructions .ROUTE .COMPLEX 05/10/21 08/19/21 Unknown History magnesium hydroxide [Milk of See Rx Instructions .ROUTE .COMPLEX 05/10/21 08/19/21 Unknown History Magnesia] acetaminophen [Tylenol Extra 500 mg PO DAILY@20 08/19/21 08/19/21 08/18/21 History Strength] cetirizine [Zyrtec] 10 mg PO DAILY PRN 08/19/21 08/19/21 Unknown History Allergies Allergy/AdvReac Type Severity Reaction Status Date / Time Penicillins Allergy RASH Verified 04/15/21 09:06 PFSH Acute PFSH: Medical History Anxiety Dementia Hyperlipidemia Hypertension Hyponatremia Tremor Surgical History History of breast biopsy History of repair of rectocele History of vaginal hysterectomy Family History Other Hyperlipidemia Hypertension Social History Smoking and tobacco status: never smoked Alcohol intake: current Alcohol intake frequency: holidays/special occasions only A&P Assessment and plan (1) Displaced fracture of right femoral neck: Seen and examined the patient agree with above Christopher Perdue DO Status: Acute Consult Attestations Medical Necessity Statement: fracutured hip Coding Level of Care Code Acute Jig And Fixture Repairer for [facility] Fwd Exam Comprehensive Diagnoses Displaced fracture of right femoral neck S72.001A
[2021-08-19] MEDS: fentaNYL 50 mcg/mL INJ 2mL IVP (13:00)
--- NOTE | 2021-08-19 13:19 | PM.HP ---
Providers/Chief Complaint Admitting Physician: Bay Mahoney MD Primary Care Provider: Lee Tyler DO Chief Complaint: FALL, R HIP PAIN History of Present Illness Christina Mc is a 81 year old female who was found down by staff at her apartment at [facility]. She is not for sure exactly what happened resulting in the fall. She has underlying dementia. She reports her hip hurts. She also was noted to have some significant bruising overlying her right shoulder and left knee. She has not had Covid in the past, and has been vaccinated. Further details I am not able to get from the patient herself. I was able to evaluate her briefly, in the preop holding. Review of Systems General: Reports: ROS unobtainable due to mental status (Patient with underlying dementia) Medications/Allergies Home Medications Medication Instructions Recorded Confirmed Last Taken Type alprazolam 0.25 mg PO TID PRN 04/15/21 08/19/21 Unknown History Mylanta See Rx Instructions .ROUTE .COMPLEX 05/10/21 08/19/21 Unknown History acetaminophen 650 mg PO Q6H PRN 05/10/21 08/19/21 Unknown History aspirin 325 mg PO DAILY@05/10/21 08/19/21 08/18/21 History atorvastatin 40 mg PO BEDTIME@05/10/21 08/19/21 08/18/21 History bisacodyl See Rx Instructions .ROUTE .COMPLEX 05/10/21 08/19/21 Unknown History loperamide [Anti-Diarrhea] See Rx Instructions .ROUTE .COMPLEX 05/10/21 08/19/21 Unknown History magnesium hydroxide [Milk of See Rx Instructions .ROUTE .COMPLEX 05/10/21 08/19/21 Unknown History Magnesia] acetaminophen [Tylenol Extra 500 mg PO DAILY@08/19/21 08/19/21 08/18/21 History Strength] cetirizine [Zyrtec] 10 mg PO DAILY PRN 08/19/21 08/19/21 Unknown History Allergies Allergy/AdvReac Type Severity Reaction Status Date / Time Penicillins Allergy RASH Verified 04/15/21 09:06 PFSH Acute PFSH: Medical History Anxiety Dementia Hyperlipidemia Hypertension Hyponatremia Tremor Surgical History History of breast biopsy History of repair of rectocele History of vaginal hysterectomy Family History Other Hyperlipidemia Hypertension Social History Smoking and tobacco status: never smoked Alcohol intake: current Alcohol intake frequency: holidays/special occasions only Vitals/I&O/Wt Last Vital Signs Temp 97.4 F L 08/19/21 10:55 Pulse 72 08/19/21 10:55 Resp 18 08/19/21 10:55 BP 143/75 08/19/21 10:55 Pulse Ox 97 08/19/21 10:55 Weight last 48 hrs Weight 54.431 kg Physical Exam Narrative: EXAM NARRATIVE: General exam alert, able to answer few questions but underlying confusion noted. HEENT: Pupils equally round. Oropharynx clear. Neck is supple no lymphadenopathy or thyromegaly Cardiovascular regular rate and rhythm without murmur, no S3 or S4 Lungs clear Abdomen is soft with positive bowel sounds. No obvious organomegaly exam is deferred Extremities no cyanosis clubbing or edema, right lower extremity with external rotation and shortening. Distal pulses intact. Skin no rash Neuro no focal deficits Data : 08/19/21 09:35 08/19/21 09:35 Other data: No acute disease, right knee film without fracture, right hip film with femoral neck fracture LFTs, calcium, TSH normal Urinalysis with 0-4 white cells, otherwise negative EKG with sinus rhythm, normal axis, no acute changes. A&P Assessment and plan (1) Fracture of femoral neck, right: N.p.o. Surgical consult for repair Also appeared to have a right shoulder contusion. No evidence of fracture on chest x-ray film. Status: Acute (2) Hyponatremia: Continue to follow closely. Repeat level tomorrow Status: Acute (3) Elevated CK: Very mild elevation. No reason to repeat any further levels. Status: Acute (4) Contusion of left knee: Check x-ray left knee. Doubt fracture. Status: Acute (5) Dementia: Underlying dementia, making overall treatment somewhat more complicated. Discussed this with family member, daughter, who was present during my history and physical. Status: Acute Additional A&P Information Fall, unknown reason. EKG does not demonstrate any atrial fibrillation, arrhythmia Heparin or Lovenox for DVT prophylaxis following surgery. Attestations Medical Necessity Statement*: Will need greater than 2 midnight stay for evaluation and treatment of hip fracture. Time Spent in Patient Care: Greater than 35 minutes Coding Level of Care Code Acute Db2 Developer for g Fwd Diagnoses Fracture of femoral neck, right S72.001A Hyponatremia E87.1 Elevated CK R74.8 Contusion of left knee S80.02XA Dementia F03.90
--- NOTE | 2021-08-19 14:37 | XRR_ITS ---
PROCEDURE INFORMATION: Exam: XR Left Knee Exam date and time: 08/19/2021 2:37 PM Age: 81 years old Clinical indication: Injury or trauma; Fall; Blunt trauma; Left; Injury details: History--contusion lt. Knee cap TECHNIQUE: Imaging protocol: XR Left knee. Views: 1 or 2 views. COMPARISON: No relevant prior studies available. FINDINGS: Bones/joints: Normal. Soft tissues: Normal. XR/XR knee LT 1-2V [id number] IMPRESSION: No acute findings.
[2021-08-19] MEDS: clindamycin 900 MG/50 ML PREMIX 100 MG IV ×2 (14:49→22:11)
--- NOTE | 2021-08-19 15:50 | PM.OP ---
Operative Report Date of procedure: August 19, 2021 Pre-op Diagnosis: right Femoral neck fracture Post-op diagnosis: same Procedure Done: Right hip hemiarthroplasty Surgeon: Christopher Perdue Cold Molding Press Operator: Shaq Ramirez Cold Molding Press Operator: Assisted with retraction closure and reduction and positioning of the patient. Anesthesia: General Estimated blood loss (mL): 20 Condition: stable Disposition: PACU Procedure: Right hip hemiarthroplasty Patient is brought to the operative suite after undergoing spinal anesthesia was placed in the lateral decubitus position. All areas impingement well-padded. Patient was then prepped and draped over the right hip. Skin incision was made the IT band was split the abductor and capsule taken anteriorly the femoral neck cut was made approximate fingerbreadth above the lesser trochanter. The femoral head was then removed and measured to be 45. The box sealing machine operator was then used followed by the canal finder followed by the lateralizer. The canal was broached to 4. A size 4 stem was used followed by a -4 neck length and a 45 mm head the hip was then reduced felt to be stable normal positions and good leg lengths. Wounds irrigated then the capsule was closed along with the abductors followed by the IT band and the skin in a layered fashion. Sterile dressings were applied and patient was transferred to the PACU in stable condition.
--- NOTE | 2021-08-19 17:21 | ANE.PACU2 ---
Inpatient post-anesthesia follow up: Airway intact: Yes Vital signs: Temperature 97.5 F Pulse Rate [Monito r] 84 Pulse Rate 66 Respiratory Rate 12 Blood Pressure [Ri ght Arm] 140/99 Blood Pressure 108/59 Pulse Oximetry 95 Oxygen Delivery Me thod Room Air Oxygen Flow Rate 8 Fraction of Inspir ed Oxygen Hydration adequate: Yes Nausea and vomiting: No Pain level: 2 Mental status: Baseline
[2021-08-19] MEDS: D5-NS 0.45% + KCL 20 mEq 20 MEQ/1,000 ML BAG 100 MEQ IV (17:36)
[2021-08-19] MEDS: atorvastatin 40 mg Tablet PO (20:44)
[2021-08-19] MEDS: acetaminophen 325 mg Tablet 650 MG PO (21:34)
[2021-08-19] MEDS: ketorolac 30 mg/mL INJ IVP (22:38)
[2021-08-19] MEDS: morphine 4 mg/mL SDV 1 mL 2 MG IVP (23:20)
[2021-08-20] VITALS (7 sets, daily range): BP systolic 109–146; BP diastolic 61–81; PULSE 71–94; RESP 14–18; TEMP 36.6–36.9; O2SAT 93–96
[2021-08-20 02:57] LABS: Basophils % 0.4 %; Eosinophils % 0.2 %; Hematocrit 30.2 % (37.0-47.0); Hemoglobin 9.6 g/dL (11.5-15.3); Lymphocytes # 0.5 10^3/uL (0.8-4.8); Mean Corpuscular HGB Conc 31.8 g/dL (30.0-36.0); Mean Corpuscular Hemoglobin 30.7 pg (28.0-34.0); Mean Corpuscular Volume 96.5 fl (81-99); Mean Platelet Volume 9.2 fL (7.4-10.4); Monocytes # 0.8 10^3/uL (0.2-0.9); Monocytes % 7.4 %; Neutrophils # 8.73 10^3/uL (1.8-7.7); Neutrophils % 86.5 %; Nucleated Red Blood Cells % 0 %; Platelet Count 207 10^3/cmm (130-400); Red Blood Count 3.13 10^6/uL (4.1-5.3); Red Cell Distribution Width 13.1 % (12.1-15.1); White Blood Count 10.1 10^3/uL (4.0-10.0)
[2021-08-20 03:17] LABS: Alanine Aminotransferase 16 U/L (0-33); Albumin Level 3.6 g/dL (3.5-5.2); Alkaline Phosphatase 68 IU/L (35-105); Anion Gap 14.9 (5-19); Aspartate Amino Transferase 36 U/L (0-32); Blood Urea Nitrogen 19 mg/dL (8-23); Calcium 8.9 mg/dL (8.5-10.5); Carbon Dioxide 22 mmol/L (22-29); Chloride 93 mmol/L (98-107); Creatinine Clr Calc Pharmacy 44.7866; Globulin 2.2 g/dL (1.3-4.6); Glucose 116 mg/dL (65-115); Osmolality Calculated 265 mOsm/kg (285-295); Potassium 3.9 mmol/L (3.5-5.1); Sodium 126 mmol/L (136-145); Total Bilirubin 0.9 mg/dL (0.15-1.2); Total Protein 5.8 g/dL (6.6-8.7)
[2021-08-20] MEDS: enoxaparin 40 mg/0.4 mL Syringe SUBCUT (03:25)
[2021-08-20] MEDS: D5-NS 0.45% + KCL 20 mEq 20 MEQ/1,000 ML BAG 100 MEQ IV (03:37)
[2021-08-20] MEDS: clindamycin 900 MG/50 ML PREMIX 100 MG IV ×2 (06:30→16:50)
--- NOTE | 2021-08-20 08:39 | PM.PN ---
Subjective Subjective: Interval history: POD 1 for right hemiarthroplasty. Patient is awake in no obvious distress. Family is present. Denies any shortness of breath, chest pain, headaches. Vitals/I&O/Wt Last Vital Signs Temp 97.8 F 08/20/21 07:34 Pulse 94 08/20/21 07:34 Resp 16 08/20/21 07:34 BP 146/80 08/20/21 07:34 Pulse Ox 94 08/20/21 07:34 08/19/21 08/20/21 08/20/21 22:59 06:59 14:59 Intake Total 200 / 200 1000 / 1200 50 / 50 Output Total 250 / 250 225 / 475 Balance -50 / -50 775 / 725 50 / 50 Weight last 48 hrs Weight 120 lb Physical Exam Narrative: EXAM NARRATIVE: Patient is alert in no obvious distress. Incision with mild bloody drainage. Normal sensation light touch down both lower extremities. Wiggles her toes are warm to the touch she can dorsiflex and plantarflex. Calves are supple no signs of DVT. Skin is warm to the touch. Dorsalis pedis and posterior tib pulses are palpable. Data : 08/20/21 02:08 08/20/21 02:08 A&P Assessment and plan (1) Displaced fracture of right femoral neck: Status: Acute Additional A&P Information Dressing change right hip. Consult for social science instructor evaluate for placement. Physical therapy to work with weightbearing as tolerated. Okay from orthopedic standpoint to discharge back to shelter when medically stable. Attestations Medical Necessity Statement*: Okay for discharge back to shelter from orthopedic standpoint when medically stable. Coding Level of Care Code Acute Social Studies Department Chair for [facility] Diagnoses Displaced fracture of right femoral neck S72.001A
[2021-08-20] MEDS: aspirin 325 mg EC Tablet PO (08:40)
--- NOTE | 2021-08-20 09:17 | PM.PN ---
Subjective Subjective: Interval history: Christina reports she is doing okay. Daughter is present in the room. Confusion evident. Medications: Reviewed: Yes Vitals/I&O/Wt Last Vital Signs Temp 97.8 F 08/20/21 07:34 Pulse 94 08/20/21 07:34 Resp 16 08/20/21 07:34 BP 146/80 08/20/21 07:34 Pulse Ox 94 08/20/21 07:34 08/19/21 08/20/21 08/20/21 22:59 06:59 14:59 Intake Total 200 / 200 1000 / 1200 50 / 50 Output Total 250 / 250 225 / 475 Balance -50 / -50 775 / 725 50 / 50 Weight last 48 hrs Weight 54.431 kg Physical Exam Narrative: EXAM NARRATIVE: General exam alert, able to answer few questions but underlying confusion noted. Neck is supple no lymphadenopathy or thyromegaly Cardiovascular regular rate and rhythm without murmur, no S3 or S4 Lungs clear Abdomen is soft with positive bowel sounds. No obvious organomegaly Extremities no cyanosis clubbing or edema Data : 08/20/21 02:08 08/20/21 02:08 A&P Assessment and plan (1) Fracture of femoral neck, right: Postoperative day #1 status post surgical repair, right hip arthroplasty Will need penitentiary facility placement. Status: Acute (2) Hyponatremia: Slightly worse. Discontinue IV fluids. Lasix 40 mg IV x1 BMP in the morning Status: Acute (3) Elevated CK: Very mild elevation. No reason to repeat any further levels. Status: Acute (4) Contusion of left knee: No fracture Status: Acute (5) Dementia: Underlying dementia, making overall treatment somewhat more complicated. Discussed this with family member, daughter, who was present during my history and physical. Status: Acute Additional A&P Information Acute postoperative blood loss anemia. Not clinically significant currently. Fall, unknown reason. EKG does not demonstrate any atrial fibrillation, arrhythmia Lovenox for DVT prophylaxis. Attestations Medical Necessity Statement*: Needs continued hospital stay, for ongoing rehabilitation to reduce fall risk and transition to skilled care. Coding Level of Care Code Acute Gas Collection System Operator for g Fwd Diagnoses Fracture of femoral neck, right S72.001A Hyponatremia E87.1 Elevated CK R74.8 Contusion of left knee S80.02XA Dementia F03.90
[2021-08-20] MEDS: FUROsemide 10 mg/mL SDV 4mL 40 MG IVP (10:09)
[2021-08-20] MEDS: HYDROcodone-acetaminophen 5-325 mg Tablet PO ×2 (13:30→21:49)
--- NOTE | 2021-08-20 18:34 | PC.NURSE ---
patient found standing alone in room, pozo catheter removed with balloon intact. dr. maldonado notified. no new orders.
[2021-08-20] MEDS: atorvastatin 40 mg Tablet PO (20:13)
[2021-08-21] VITALS: BP 118/76; PULSE 72; RESP 16; TEMP 36.7; O2SAT 94
--- NOTE | 2021-08-21 03:37 | PC.NURSE ---
Patient ambulated to the bathroom with Ax1-2 and voided without difficulty. Patient missed the hat and post void residual was done with 35 ml noted. Patient feels like she emptied her bladder.
[2021-08-21] MEDS: enoxaparin 40 mg/0.4 mL Syringe SUBCUT (03:45)
[2021-08-21 04:00] VITALS: BP 156/95; PULSE 70; RESP 16; TEMP 36.7; O2SAT 94
[2021-08-21 06:01] LABS: Basophils # 0.1 10^3/uL (0.0-0.1); Basophils % 0.6 %; Eosinophils % 0.3 %; Hematocrit 28.7 % (37.0-47.0); Hemoglobin 9.7 g/dL (11.5-15.3); Lymphocytes # 0.6 10^3/uL (0.8-4.8); Lymphocytes % 6.9 %; Mean Corpuscular HGB Conc 33.8 g/dL (30.0-36.0); Mean Corpuscular Hemoglobin 30.5 pg (28.0-34.0); Mean Corpuscular Volume 90.3 fl (81-99); Monocytes # 0.8 10^3/uL (0.2-0.9); Monocytes % 8.8 %; Neutrophils # 7.13 10^3/uL (1.8-7.7); Neutrophils % 82.8 %; Nucleated Red Blood Cells % 0 %; Platelet Count 181 10^3/cmm (130-400); Red Blood Count 3.18 10^6/uL (4.1-5.3); Red Cell Distribution Width 12.9 % (12.1-15.1); White Blood Count 8.6 10^3/uL (4.0-10.0)
[2021-08-21 06:23] LABS: Anion Gap 15.6 (5-19); Blood Urea Nitrogen 23 mg/dL (8-23); Calcium 9.2 mg/dL (8.5-10.5); Carbon Dioxide 24 mmol/L (22-29); Chloride 94 mmol/L (98-107); Glucose 122 mg/dL (65-115); Osmolality Calculated 273 mOsm/kg (285-295); Potassium 4.6 mmol/L (3.5-5.1); Sodium 129 mmol/L (136-145)
--- NOTE | 2021-08-21 06:48 | PM.PN ---
Subjective Subjective: Interval history: POD 2 Patient resting in No apparent distress. NO family present. Vitals/I&O/Wt Last Vital Signs Temp 98.0 F 08/21/21 04:00 Pulse 70 08/21/21 04:00 Resp 16 08/21/21 04:00 BP 156/95 08/21/21 04:00 Pulse Ox 94 08/21/21 04:00 08/20/21 08/20/21 08/21/21 14:59 22:59 06:59 Intake Total 940 / 940 170 / 1110 200 / 1310 Output Total 700 / 700 120 / 820 Balance 940 / 940 -530 / 410 80 / 490 Weight last 48 hrs Weight 120 lb Physical Exam Narrative: EXAM NARRATIVE: Incision clean with slight bloody drainage, skin warm with good cap refill, wiggles all digits, DP/PT 2+, calves supple, Data : 08/21/21 05:50 08/21/21 05:50 A&P Assessment and plan (1) Displaced fracture of right femoral neck: Dressing Change Right hip with xeroform and 4x4s with tape WBAT RLE Status: Acute Attestations Medical Necessity Statement*: Defer to Medical Team Coding Level of Care Code Acute Warehouse Order Filler for Mitchell Fwyuliya Diagnoses Displaced fracture of right femoral neck S72.001A
[2021-08-21 08:00] VITALS: BP 114/72; PULSE 96; RESP 20; TEMP 36.7; O2SAT 98
--- NOTE | 2021-08-21 08:40 | PM.PN ---
Subjective Subjective: Interval history: Christina reports she is doing okay. Confusion is evident. Medications: Reviewed: Yes Vitals/I&O/Wt Last Vital Signs Temp 98.0 F 08/21/21 08:00 Pulse 96 08/21/21 08:00 Resp 20 H 08/21/21 08:00 BP 114/72 08/21/21 08:00 Pulse Ox 98 08/21/21 08:00 08/20/21 08/21/21 08/21/21 22:59 06:59 14:59 Intake Total 170 / 1110 200 / 1310 Output Total 700 / 700 120 / 820 Balance -530 / 410 80 / 490 Physical Exam Narrative: EXAM NARRATIVE: General exam alert, conversive but confused Neck is supple no lymphadenopathy or thyromegaly Cardiovascular regular rate and rhythm without murmur, no S3 or S4 Lungs clear Abdomen is soft with positive bowel sounds. No obvious organomegaly Extremities no cyanosis clubbing or edema Data : 08/21/21 05:50 08/21/21 05:50 A&P Assessment and plan (1) Fracture of femoral neck, right: Postoperative day #2 status post surgical repair, right hip arthroplasty Will need detention facility placement. Trying to arrange this currently. Status: Acute (2) Hyponatremia: Improved after dose of Lasix given August 20 and discontinuation of IV fluids Status: Acute (3) Elevated CK: Very mild elevation. No reason to repeat any further levels. Status: Acute (4) Contusion of left knee: No fracture Status: Acute (5) Dementia: Underlying dementia, making overall treatment somewhat more complicated. Discussed this with family member, daughter, who was present during my history and physical. Status: Acute Additional A&P Information Acute postoperative blood loss anemia. Not clinically significant currently. Hemoglobin remained stable Fall, unknown reason. EKG does not demonstrate any atrial fibrillation, arrhythmia Lovenox for DVT prophylaxis. Attestations Medical Necessity Statement*: Needs continued hospitalization for further rehabilitation to reduce fall risk after hip fracture pending placement. Coding Level of Care Code Acute Environmental Health Safety Manager for [facility] Fwd Diagnoses Fracture of femoral neck, right S72.001A Hyponatremia E87.1 Elevated CK R74.8 Contusion of left knee S80.02XA Dementia F03.90
[2021-08-21] MEDS: aspirin 325 mg EC Tablet PO (09:02)
[2021-08-21 11:44] VITALS: BP 114/74; PULSE 85; RESP 17; TEMP 37; O2SAT 98
--- NOTE | 2021-08-21 13:37 | PM.DCS ---
Discharge Providers Date of Admission: 08/19/21 09:19 Date of Discharge: August 21, 2021 Attending Provider at Admission: Bay Mahoney MD Attending Provider at Discharge: Bay Mahoney MD Primary Care Provider: Lee Tyler DO Diagnoses at Discharge Discharge Diagnosis (1) Fracture of femoral neck, right: Status: Acute (2) Hyponatremia: Status: Acute (3) Elevated CK: Status: Acute (4) Contusion of left knee: Status: Acute (5) Dementia: Status: Acute Reason for Visit Reason for Visit: FALL, R HIP PAIN Hospital Course Hospital Course Christina is a 81-year-old white female who presented to the hospital after a fall at an assisted living. She sustained a fracture of her right femoral neck. No other injuries were noted. She was found to be hyponatremic, which she has chronically. She has underlying dementia which is significant. Orthopedics was consulted, and operative repair occurred on August 19. This went well without complication. Following operative repair mild postoperative anemia was noted. Sodium improved to 129. Hemoglobin was 9.7 at discharge. Discharge was arranged to [facility] on August 21. Rapid Covid will be done prior to discharge. Physical Exam Narrative: EXAM NARRATIVE: General exam no apparent distress Neck is supple Cardiovascular regular rate and rhythm Lungs clear Abdomen is soft, positive bowel sounds Extremities no cyanosis clubbing or edema Discharge Data Data Completed and Pending: Completed Studies During Hospitalization Category Date Time Status XR chest 1V damián ble [id number] Stat Exams 08/19/21 08:28 Completed XR hip RT 2-3V wo /w pel* [id number] Stat Exams 08/19/21 08:27 Completed XR knee LT 1-2V 7 [id number] Routine Exams 08/19/21 14:37 Completed XR knee RT 3V* [id number] Stat Exams 08/19/21 08:27 Completed Pending at discharge Category Date Time Status SARS Covid-2 Anti gen Routine Lab 08/21/21 13:29 Uncollected Labs from last 24 hours 08/21/21 08/21/21 05:50 05:50 WBC 8.6 RBC 3.18 L Hgb 9.7 L Hct 28.7 L MCV 90.3 D MCH 30.5 MCHC 33.8 D RDW 12.9 Plt Count 181 MPV 9.0 Neut % (Auto) 82.8 Lymph % (Auto) 6.9 Cook % (Auto) 8.8 Eos % (Auto) 0.3 Baso % (Auto) 0.6 Neut # (Auto) 7.13 Lymph # (Auto) 0.6 L [place] # (Auto) 0.8 Eos # (Auto) 0.0 Baso # (Auto) 0.1 Nucleated RBC % (a uto) 0 Nucleated RBCs # 0.0 Sodium 129 L Potassium 4.6 Chloride 94 L Carbon Dioxide 24 Anion Gap 15.6 BUN 23 Creatinine 1.0 H GFR Calculation Not Reportable Glucose 122 H Calculated Osmolal ity 273 L Calcium 9.2 Vitals: Last Vital Signs Temp 98.6 F 08/21/21 11:44 Pulse 85 08/21/21 11:44 Resp 17 08/21/21 11:44 BP 114/74 08/21/21 11:44 Pulse Ox 98 08/21/21 11:44 Discharge Plan Discharge Patient Disposition: Xfer SNF Condition: Stable Prescriptions: New hydrocodone-acetaminophen 5-325 mg tablet 1 tab PO Q6H PRN (Reason: pain) Qty: 20 RF: 0 aspirin [Adult Low Dose Aspirin] 81 mg tablet,delayed release (DR/EC) 81 mg PO DAILY Qty: 30 RF: 0 enoxaparin [Lovenox] 40 mg/0.4 mL syringe 40 mg SUBCUT DAILY Qty: 5.6 RF: 0 Continued Zyrtec 10 mg Tablet 10 mg PO DAILY PRN (Reason: Allergy Symptoms) RF: 0 Tylenol Extra Strength 500 mg Tablet 500 mg PO DAILY@20 RF: 0 acetaminophen 325 mg Tablet 650 mg PO Q6H PRN (Reason: Pain) RF: 0 loperamide [Anti-Diarrhea] 2 mg Tablet See Rx Instructions .ROUTE .COMPLEX RF: 0 magnesium hydroxide [Milk of Magnesia] 400 mg/5 mL Suspension See Rx Instructions .ROUTE .COMPLEX RF: 0 bisacodyl 10 mg Suppository See Rx Instructions .ROUTE .COMPLEX RF: 0 Mylanta See Rx Instructions .ROUTE .COMPLEX RF: 0 atorvastatin 40 mg tablet 40 mg PO BEDTIME@20 RF: 0 Discontinued alprazolam 0.25 mg tablet 0.25 mg PO TID PRN (Reason: Anxiety) RF: 0 aspirin 325 mg tablet,delayed release (DR/EC) 325 mg PO DAILY@08 RF: 0 Discharge Orders: Discharge Order (Routine); Ordered 08/21/21 Ordered By: Bay Mahoney Referrals: Christopher Perdue DO [Physician] - 1 month Lee Tyler DO [Primary Care Provider] - Discharge Diet: Usual diet Discharge Activity: Limit activity as instructed Activity Restrictions/Additional Instructions: WBAT RLE. Dressing Changes PRN with Xeroform, 4x4s and tape Please call and confirm desired follow-up with orthopedics Follow-up with primary care provider at [facility] CBC 2 weeks Hold discharge until rapid Covid testing known Discharge Attestations Time Spent in Discharge Care*: greater than 30 min Quality Metrics Clinical Quality Measures During this hospital stay, did patient experience: None Coding Level of Care Code Acute g [facility] note Diagnoses Fracture of femoral neck, right S72.001A Hyponatremia E87.1 Elevated CK R74.8 Contusion of left knee S80.02XA Dementia F03.90
[2021-08-21 14:28] LABS: SARS Covid-2 Antigen Negative (Negative)
[2021-08-21 15:41] VITALS: BP 142/77; PULSE 68; RESP 18; TEMP 37.1; O2SAT 97
--- NOTE | 2021-08-21 15:48 | PC.NURSE ---
Report called to nurse at [facility]
[2021-08-21 18:14] VITALS: BP 142/77; PULSE 68; RESP 18; TEMP 37.1; O2SAT 97
--- NOTE | 2021-08-22 10:39 | PC.SOCIAL ---
discharge follow up call made, spoke with Tamera in scheduling and gave her follow up appointment date and time with Dr. Perdue. Spoke with pts nurse Nayana, she reports pt is a little confused but that is normal for her and that she is ambulating using her walker and doing well. went over dressing changes and cbc in 2 weeks. no questions or concerns voiced. report writer will call and cancel follow up with Dr. Tyler due to [facility].
== END 2021-08-21 18:00 | disposition skilled nursing facility (03) | DRG 522 ==
LOC: ER 09:50 → MEDSURG 10:33
PROVIDERS: Orthopaedic Surgery; Admitting Provider Internal Medicine; Emergency Provider Family Medicine; PCP Family Medicine; Visit Provider Internal Medicine
PROC: 0SRR0JZ Replacement of Right Hip Joint, Femoral Surface with Synthetic Substitute, Open Approach (ICD-10-PCS; CPT 27125; principal; 2021-08-19 14:35)
DX: S72.001A Fracture of unspecified part of neck of right femur, initial encounter for closed fracture (principal); D62 Acute posthemorrhagic anemia; E87.1 Hypo-osmolality and hyponatremia; W18.30XA Fall on same level, unspecified, initial encounter; F03.90 Unspecified dementia, unspecified severity, without behavioral disturbance, psychotic disturbance, mood disturbance, and anxiety; F41.9 Anxiety disorder, unspecified; E78.5 Hyperlipidemia, unspecified; I10 Essential (primary) hypertension; Z86.73 Personal history of transient ischemic attack (TIA), and cerebral infarction without residual deficits; S40.011A Contusion of right shoulder, initial encounter; S80.02XA Contusion of left knee, initial encounter
CPT/HCPCS: 36415; 51798; 71045; 73502; 73560; 73562; 80048; 80053; 81001; 82550; 84443; 85025; 87086; 87426; 90471; 90714; 93005; 96372; 96374; 96375; 97110; 97162; 97167; 97530; 97535; 99285; C1776; J1650; J1885; J1940; J2270; J2405; J2704; J3010; J3490

== ENCOUNTER 2021-09-02 12:54 | Inpatient (IN) | payer MEDICARE, OTHER, SELFPAY ==
[2021-09-02] VITALS (10 sets, daily range): BP systolic 110–169; BP diastolic 67–109; PULSE 62–143; RESP 11–21; TEMP 37.2–37.5; O2SAT 92–100; BMI 15.0
--- NOTE | 2021-09-02 13:01 | ED_ITS ---
HPI - Trauma General: Chief Complaint: Fall Stated Complaint: fall, poss bilat hip and jaw fx Time Seen by Provider: 09/02/21 13:00 History of Present Illness: HPI narrative: Ms. Mc is a 81-year-old lady with history of dementia and recent hospitalization for hip fracture which was repaired surgically who presents emergency department due to fall. Per EMS report the patient had a witnessed fall on Thursday. She was not evaluated at that time but is more or less not been able to close her jaw since then. Additionally they noticed concern over external rotation of the hip. Upon arrival patient is somewhat somnolent, reportedly she did receive pain medications this morning, and attempts to communicate however due to limited range of motion of jaw has difficulty. Mucous membranes are very dry. History otherwise limited by patient condition. Review of Systems General: Reports: ROS unobtainable due to medical condition and ROS unobtain able due to mental status [facility] ED PFSH: Medical History Anxiety Dementia Hyperlipidemia Hypertension Hyponatremia Tremor Surgical History History of breast biopsy History of repair of rectocele History of vaginal hysterectomy Family History Other Hyperlipidemia Hypertension Social History Smoking and tobacco status: never smoked Alcohol intake: current Alcohol intake frequency: holidays/special occasions only Physical Exam Narrative: EXAM NARRATIVE: GENERAL/CONSTITUTIONAL -frail and somewhat ill- appearing. \ Eyes - PERRL, no conjunctival injection ENMT -jaw held open, tenderness to palpation generally with soft tissue edema on the right, range of motion is severely limited. Mucous membranes are extremely dry. NECK - supple. trachea midline CARDIOVASCULAR - regular rate and rhythm. Peripheral pulses 2+ and equal RESPIRATORY -clear to auscultation bilaterally. No retractions or accessory muscle use. ABDOMEN/GI - Nontender/Nondistended. No tenderness to percussion or evidence of peritonitis MSK -right lower extremity with limited range of motion, externally rotated, distal CMS intact, surgical oleksandr in place without obvious wound infection SKIN -pale, Dry NEURO -limited assessment as patient's jaw prohibits meaningful conversation. Patient is alert however appears somnolent. No hemiparalysis PSYCH -impaired cognition and memory Procedures Jaw Reduction Time Out Performed: Yes Pre-Treatment Medications Used: opioids Technique used: downward anterior traction Reduction successful: Yes Patient Tolerated Procedure: well Complications: other Additional Comments: Assisted by Dr Ennis. Skin tears as complication Procedural Sedation Indication: fracture/dislocation reduction ASA Class: II Preparation: site monitor applied, pulse oximeter, supplemental O2 applied, suction/airway equipment at bedside and IV secured Fentanyl: IV Midazolam: IV Complications: none Additional Comments: 2 separate doses of 25 mcg fentanyl and 2 mg Versed. Total of 50 mcg fentanyl and 4 mg of Versed. Course ED course: - Patient was seen and evaluated by me at bedside - Patient placed on cardiac monitors, IV access obtained - Initial evaluation notable for as noted above, obvious jaw injury and hip injury. - Labs notable for mild leukocytosis of unclear etiology, normocytic anemia somewhat worse than baseline. Mild dehydration noted on metabolic panel with preservation of renal function. Delta troponin negative. - Imaging notable for bilateral anterior jaw dislocation. Periprosthetic fracture. - Patient's daughter at bedside consented for procedural sedation and chart reduction. Jaw was reduced however procedure complicated by skin tears on the neck, dressings applied. - Upon serial reexamination after treatment the patient was mildly improved though patient remains frail and ill-appearing with mental status abnormality - Based on patient history, evaluation, labs, and imaging as interpreted the most likely cause of the patient's condition is fall, possibly 6 days prior under unclear circumstances, jaw dislocation, periprosthetic fracture - Hospitalist service contacted and agreed to admit the patient. Orthopedic service was contacted and plans operative intervention. - Patient was admitted without further deterioration or significant events. Vital Signs: Vital signs: Vital Signs Temperature 99.6 F 09/05/21 15:17 Pulse Rate 104 H 09/05/21 15:17 Respiratory Rate 16 09/05/21 15:17 Blood Pressure 99/67 09/05/21 15:17 Pulse Oximetry 95 09/05/21 15:17 [facility] - Trauma Medical Records: Attestation: I reviewed the patient's medical records. Lab Data: Attestation: I reviewed the patient's lab results. Labs: Lab Results 09/02/21 09/02/21 09/02/21 13:42 13:43 13:55 WBC RBC Hgb Hct MCV MCH MCHC RDW Plt Count MPV Neut % (Auto) Lymph % (Auto) [place] % (Auto) Eos % (Auto) Baso % (Auto) Neut # (Auto) Lymph # (Auto) [place] # (Auto) Eos # (Auto) Baso # (Auto) Nucleated RBC % (a uto) Nucleated RBCs # PT INR APTT Specimen Type Arterial Sample Site Brachial, right ABG pH 7.49 H (7.35-7.45) ABG pCO2 35.0 mmHg mmHg (35-45) ABG pO2 146.0 mmHg H mmHg (80.0-100.0) ABG HCO3 26.5 mmol/L H mmo l/L (22-26) ABG Base Excess 3.0 mmol/L H mmol /L (-2.0-2.0) Dino Test N/a Hematocrit 28.0 % L % (37-47) O2 Delivery Device Nc O2 Liters/Min 2.0 % % FiO2 28.0 % % Information Assoc ID Amh Sodium Potassium Chloride Carbon Dioxide Anion Gap BUN Creatinine GFR Calculation Glucose POC Glucose 163 mg/dL H mg/dL (70-110) Calculated Osmolal ity Lactate Calcium Total Bilirubin AST ALT Alkaline Phosphata se Troponin T Baselin e Troponin T 120 Min [place] Troponin T NT-Pro-B Natriuret Pep Total Protein Albumin Globulin TSH Urine Color Yellow (Yellow) Urine Appearance Cloudy (CLEAR) Urine pH 7 (5-7) Ur Specific Gravit y 1.010 (1.005-1.030) Urine Protein Neg (Negative) Urine Glucose (UA) Norm (Normal) Urine Ketones Negative (Negative) Urine Blood Neg (Negative) Urine Nitrate Negative (Negative) Urine Bilirubin Neg (Negative) Urine Urobilinogen 1 mg/dL H mg/dL (Negative) Ur Leukocyte Lelo ase 1+ H (Negative) Urine RBC Not Reportable Urine WBC Too numerous to c nt /hpf H /hpf (0-5) Ur Squamous Epith Cells 5-10 /hpf H /hpf (0-5) Ur Transition Epit h Cell 0-4 /hpf /hpf Amorphous Sediment Not Reportable Urine Bacteria 4+ /hpf H /hpf (NONE) Blood Type Rho(D) Type Antibody Screen Crossmatch 09/02/21 09/02/21 09/02/21 14:00 14:00 14:00 WBC 10.8 10^3/uL H 10 ^3/uL (4.0-10.0) RBC 2.93 10^6/uL L 10 ^6/uL (4.1-5.3) Hgb 8.9 g/dL L g/dL (11.5-15.3) Hct 27.7 % L % (37.0-47.0) MCV 94.5 fl fl (81-99) MCH 30.4 pg pg (28.0-34.0) MCHC 32.1 g/dL g/dL (30.0-36.0) RDW 13.1 % % (12.1-15.1) Plt Count 316 10^3/cmm 10^3 /cmm (130-400) MPV 9.4 fL fL (7.4-10.4) Neut % (Auto) 83.7 % % Lymph % (Auto) 5.9 % % [place] % (Auto) 9.7 % % Eos % (Auto) 0.0 % % Baso % (Auto) 0.4 % % Neut # (Auto) 9.05 10^3/uL H 10 ^3/uL (1.8-7.7) Lymph # (Auto) 0.6 10^3/uL L 10^ 3/uL (0.8-4.8) [place] # (Auto) 1.1 10^3/uL H 10^ 3/uL (0.2-0.9) Eos # (Auto) 0.0 10^3/uL 10^3/ uL (0.0-0.8) Baso # (Auto) 0.0 10^3/uL 10^3/ uL (0.0-0.1) Nucleated RBC % (a uto) 0 % % Nucleated RBCs # 0.0 /100WBC /100W BC PT Cancelled INR Cancelled APTT Cancelled Specimen Type Sample Site ABG pH ABG pCO2 ABG pO2 ABG HCO3 ABG Base Excess Dino Test Hematocrit O2 Delivery Device O2 Liters/Min FiO2 Information Assoc ID Sodium 135 mmol/L L mmol /L (136-145) Potassium 4.5 mmol/L mmol/L (3.5-5.1) Chloride 97 mmol/L L mmol/ L (98-107) Carbon Dioxide 26 mmol/L mmol/L (22-29) Anion Gap 16.5 (5-19) BUN 32 mg/dL H mg/dL (8-23) Creatinine 0.8 mg/dL mg/dL (0.5-0.9) GFR Calculation Not Reportable Glucose 124 mg/dL H mg/dL (65-115) POC Glucose Calculated Osmolal ity 288 mOsm/kg mOsm/ kg (285-295) Lactate Calcium 9.3 mg/dL mg/dL (8.5-10.5) Total Bilirubin 0.8 mg/dL mg/dL (0.15-1.2) AST 19 U/L U/L (0-32) ALT 17 U/L U/L (0-33) Alkaline Phosphata se 113 IU/L H IU/L (35-105) Troponin T Baselin e Troponin T 120 Min [place] Troponin T NT-Pro-B Natriuret Pep 1864 pg/mL H pg/m L (0-450) Total Protein 6.5 g/dL L g/dL (6.6-8.7) Albumin 3.9 g/dL g/dL (3.5-5.2) Globulin 2.6 g/dL g/dL (1.3-4.6) TSH 3.26 uIU/mL uIU/m L (0.27-4.20) Urine Color Urine Appearance Urine pH Ur Specific Gravit y Urine Protein Urine Glucose (UA) Urine Ketones Urine Blood Urine Nitrate Urine Bilirubin Urine Urobilinogen Ur Leukocyte Lelo ase Urine RBC Urine WBC Ur Squamous Epith Cells Ur Transition Epit h Cell Amorphous Sediment Urine Bacteria Blood Type Rho(D) Type Antibody Screen Crossmatch 09/02/21 09/02/21 09/02/21 14:00 14:00 14:31 WBC RBC Hgb Hct MCV MCH MCHC RDW Plt Count MPV Neut % (Auto) Lymph % (Auto) [place] % (Auto) Eos % (Auto) Baso % (Auto) Neut # (Auto) Lymph # (Auto) [place] # (Auto) Eos # (Auto) Baso # (Auto) Nucleated RBC % (a uto) Nucleated RBCs # PT 14.00 SECONDS SEC ONDS (12.1-14.9) INR 1.05 (0.8-1.2) APTT 36.2 SECONDS SECO NDS (23.9-36.7) Specimen Type Sample Site ABG pH ABG pCO2 ABG pO2 ABG HCO3 ABG Base Excess Dino Test Hematocrit O2 Delivery Device O2 Liters/Min FiO2 Information Assoc ID Sodium Potassium Chloride Carbon Dioxide Anion Gap BUN Creatinine GFR Calculation Glucose POC Glucose Calculated Osmolal ity Lactate 2.1 mmol/L mmol/L (0.5-2.2) Calcium Total Bilirubin AST ALT Alkaline Phosphata se Troponin T Baselin e 54 ng/L H ng/L (0-10) Troponin T 120 Min [place] Troponin T NT-Pro-B Natriuret Pep Total Protein Albumin Globulin TSH Urine Color Urine Appearance Urine pH Ur Specific Gravit y Urine Protein Urine Glucose (UA) Urine Ketones Urine Blood Urine Nitrate Urine Bilirubin Urine Urobilinogen Ur Leukocyte Lelo ase Urine RBC Urine WBC Ur Squamous Epith Cells Ur Transition Epit h Cell Amorphous Sediment Urine Bacteria Blood Type Rho(D) Type Antibody Screen Crossmatch 09/02/21 09/02/21 16:07 16:07 WBC RBC Hgb Hct MCV MCH MCHC RDW Plt Count MPV Neut % (Auto) Lymph % (Auto) [place] % (Auto) Eos % (Auto) Baso % (Auto) Neut # (Auto) Lymph # (Auto) [place] # (Auto) Eos # (Auto) Baso # (Auto) Nucleated RBC % (a uto) Nucleated RBCs # PT INR APTT Specimen Type Sample Site ABG pH ABG pCO2 ABG pO2 ABG HCO3 ABG Base Excess Dino Test Hematocrit O2 Delivery Device O2 Liters/Min FiO2 Information Assoc ID Sodium Potassium Chloride Carbon Dioxide Anion Gap BUN Creatinine GFR Calculation Glucose POC Glucose Calculated Osmolal ity Lactate Calcium Total Bilirubin AST ALT Alkaline Phosphata se Troponin T Baselin e Troponin T 120 Min [place] 48.18 ng/L H ng/L (0-10) Delta Troponin T -5.82 ABS# L ABS# (0-10) NT-Pro-B Natriuret Pep Total Protein Albumin Globulin TSH Urine Color Urine Appearance Urine pH Ur Specific Gravit y Urine Protein Urine Glucose (UA) Urine Ketones Urine Blood Urine Nitrate Urine Bilirubin Urine Urobilinogen Ur Leukocyte Lelo ase Urine RBC Urine WBC Ur Squamous Epith Cells Ur Transition Epit h Cell Amorphous Sediment Urine Bacteria Blood Type A Positive Rho(D) Type Positive Antibody Screen Negative Crossmatch See Detail EKG Data^: EKG 1: Attestation: I personally reviewed and interpreted this EKG as follows: EKG interpretation date: 09/02/21 EKG interpretation time: 14:02 Interpretation: Twelve-lead EKG shows a regular sinus rhythm at a rate of 88. [place] interval 170, QRS duration 96, QTc 453. Normal axis. Interpretation: Sinus rhythm, mildly limited interpretation due to baseline artifact. Discharge Plan Discharge Admit Provider: Annie Cunningham Condition: Stable Discharge Activity: Increase activity as tolerated, Limit activity as instructed, Use walker/crutches as instructed and As per PT/OT instructions Coding Level of Care Code ED Supervisor Word Processing for Mitchell Bishop
--- NOTE | 2021-09-02 13:05 | XR_ITS ---
WS: [id number] XR femur RT min 2V* [id number] REASON FOR EXAM: trauma FINDINGS: Vertical oblique fracture extending from the superior lateral greater trochanter medially and inferio rly breaching the medial cortex of the right femur between the and of the femoral arthroplasty compon ent and the lesser trochanter. XR/XR femur RT min 2V* [id number] IMPRESSION: Proximal right femur fracture as above.
--- NOTE | 2021-09-02 13:05 | CT_ITS ---
WS: [id number] CT CERVICAL SPINE HISTORY: trauma, ams TECHNIQUE: Contiguous 2.5 mm axial imaging performed through the entire cervical spine. Sagittal and coronal reformats also performed. All CT scans at [facility] use at least one of these dose o ptimization techniques: automated exposure control; mA and/or kV adjustment per patient size (include s targeted exams where dose is matched to clinical indication); or iterative reconstruction. DLP: 323.48 mGy.cm COMPARISON: None available. Head is held in forward flexion. C4 anterolisthesis by 2 mm. Mild disc space narrowing and osteophyto sis throughout the cervical spine. No acute fractures. Lateral masses are aligned and the odontoid is intact. Marked facet joint arthritis is asymmetric throughout the cervical spine. Osteophytic ridgin g with disc protrusions at multiple levels. Component of foraminal stenosis throughout the cervical s pine. Most significant foraminal stenosis is moderate at C4-5 and C5-6 and C6-7. Lung apices are clear. CT/CT cervical spin wo con* [id number] IMPRESSION: 1. No acute cervical spine fracture. 2. 2 mm anterolisthesis of C4. 3. Multilevel foraminal stenosis and facet arthritis. Nonacute.
--- NOTE | 2021-09-02 13:05 | CT_ITS ---
WS: [id number] CT FACIAL BONES HISTORY: trauma, ams TECHNIQUE: Images obtained from the supraorbital location through the mandible. Soft tissue and bone windows are reviewed. Coronal and sagittal reformats have also been submitted. DLP: 1670.[address] scans at [facility] use at least one of these dose optimization techniques: automated e xposure control; mA and/or kV adjustment per patient size (includes targeted exams where dose is matc hed to clinical indication); or iterative reconstruction. COMPARISON: None available. Significant motion artifact. Patient was unable to remain still for this examination. Nasal bones and zygomatic arches are intact. No facial bone fractures are identified. No air-fluid levels within the sinuses. Significant motion artifact on the mandible and maxilla. No displacement or fractures are i dentified. Visualized upper cervical spine is normal. Normal soft tissues. CT/CT facial bones wo con* [id number] IMPRESSION: No facial bone fracture. No air-fluid levels in the sinuses.
--- NOTE | 2021-09-02 13:05 | CT_ITS ---
WS: [id number] CT HEAD NONCONTRAST HISTORY: trauma, ams TECHNIQUE: Contiguous axial imaging performed through the brain in 2.5 mm imaging. Bone and soft tiss ue windows. Sagittal and coronal reformats reviewed. All CT scans at [facility] use at least one of these dose optimization techniques: automated exposure control; mA and/or kV adjustment per pa tient size (includes targeted exams where dose is matched to clinical indication); or iterative recon struction. DLP: 836.94 mGy.cm COMPARISON: 05/10/2021 No acute intracranial hemorrhage, midline shift or mass effect. Mild atrophy and mild chronic microvascular ischemic disease. Ventricles: Normal size with no hydrocephalus. No inferior displacement of cerebellar tonsils. Paranasal sinuses: Mild mucoperiosteal thickening in the ethmoid air cells. No air-fluid levels. Mastoid air cells: Well pneumatized. Calvarium and scalp: Skull is intact with no soft tissue edema or swelling. CT/CT head wo con* [id number] IMPRESSION: 1. No acute intracranial hemorrhage or edema. 2. Mild atrophy and mild chronic microvascular ischemic disease.
--- NOTE | 2021-09-02 13:05 | XR_ITS ---
WS: [id number] XR femur LT min 2V* [id number] REASON FOR EXAM: trauma FINDINGS: No abnormality of the left femur is identified. The left hip demonstrates no bony or joint abnormality. The left knee demonstrates no bony or joint abnormality. XR/XR femur LT min 2V* [id number] IMPRESSION: No significant abnormality of the left femur as above.
--- NOTE | 2021-09-02 13:05 | XR_ITS ---
WS: [id number] XR pelvis 1-2V* [id number] REASON FOR EXAM: trauma, deformity FINDINGS: Recent total right hip arthroplasty. Vertical oblique fracture through the greater trochanter extending from superior laterally to the inf eriorly medially. Superior and inferior pubic rami are intact. XR/XR pelvis 1-2V* [id number] IMPRESSION: Fracture right hip as above.
--- NOTE | 2021-09-02 13:05 | CT_ITS ---
WS: [id number] CT CHEST, ABDOMEN AND PELVIS WITHOUT CONTRAST HISTORY: trauma, ams TECHNIQUE: Contiguous 5 mm axial imaging performed through the chest, abdomen and pelvis without IV c ontrast, oral contrast has not been provided. Coronal and sagittal reformats chest. Coronal and sagit merna reformats through the abdomen and pelvis. All CT scans at [facility] use at least one of these dose optimization techniques: automated exposure control; mA and/or kV adjustment per patient s ize (includes targeted exams where dose is matched to clinical indication); or iterative reconstructi on. CONTRAST: None DLP: 1197.21 mGy.cm COMPARISON: None available. Chest CT: Well-expanded lungs. No pulmonary contusion or pneumothorax. There are a few scattered micr onodules. No pneumonia. No pericardial pleural effusion. Heart size is moderately enlarged. Moderate atherosclerosis aorta. No mediastinal or hilar adenopathy identified on this unenhanced study. Mild anterior wedging of T8 Abdomen CT: Small hiatal hernia. Visualized liver and pancreas and spleen are negative. No adrenal ma ss. No renal obstruction. Gallbladder is negative. No adenopathy or ascites. No GI tract obstruction. No mesenteric hematoma. Suggest air within the abdominal pelvic soft tissues are probably injection sites. No hematoma. Pelvic CT: No free fluid or adenopathy. Marked fecal retention at the rectum. L4 anterolisthesis by 7 mm. Status post RIGHT total hip arthroplasty. New intertrochanteric true subt rochanteric fracture at the RIGHT hip. This is new since the radiograph of 08/19/2021 described a femo ral neck fracture. CT/CT chest abd pel wo con IMPRESSION: 1. No acute chest, abdomen or pelvic abnormalities are identified. 2. New oblique intertrochanteric to subtrochanteric RIGHT hip fracture. This n ew fracture superimposed on RIGHT total hip arthroplasty. 3. Age-indeterminate mild T8 compression fracture.
--- NOTE | 2021-09-02 13:07 | ECG_ITS ---
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
[2021-09-02 13:53] LABS: ABG PH Result 7.49 (7.35-7.45); Blood Gas Operator Identificat AMH; Blood Gas Sample Site Brachial, right; Blood Gas Sample Type Arterial; HCO3 ABG 26.5 mmol/L (22-26); Oxygen Device NC
[2021-09-02] MEDS: sodium chloride 0.9% 500 ML IV (14:10)
[2021-09-02 14:15] LABS: Charge for UA Resulting for Rev
[2021-09-02 14:22] LABS: Basophils % 0.4 %; Hematocrit 27.7 % (37.0-47.0); Hemoglobin 8.9 g/dL (11.5-15.3); Lymphocytes # 0.6 10^3/uL (0.8-4.8); Lymphocytes % 5.9 %; Mean Corpuscular HGB Conc 32.1 g/dL (30.0-36.0); Mean Corpuscular Hemoglobin 30.4 pg (28.0-34.0); Mean Corpuscular Volume 94.5 fl (81-99); Mean Platelet Volume 9.4 fL (7.4-10.4); Monocytes # 1.1 10^3/uL (0.2-0.9); Monocytes % 9.7 %; Neutrophils # 9.05 10^3/uL (1.8-7.7); Neutrophils % 83.7 %; Nucleated Red Blood Cells % 0 %; Platelet Count 316 10^3/cmm (130-400); Red Blood Count 2.93 10^6/uL (4.1-5.3); Red Cell Distribution Width 13.1 % (12.1-15.1); White Blood Count 10.8 10^3/uL (4.0-10.0)
[2021-09-02 14:37] LABS: Lactate (Lactic Acid level) 2.1 mmol/L (0.5-2.2)
[2021-09-02 14:49] LABS: Bilirubin Urine Neg (Negative); Blood Urine Neg (Negative); Glucose Urine UA Norm (Normal); Ketones Urine Negative (Negative); Nitrate Urine Negative (Negative); Protein Urine Neg (Negative); Urine Appearance Cloudy (CLEAR); Urine Color Yellow (Yellow); Urobilinogen Urine 1 mg/dL (Negative); pH Urine 7 (5-7)
[2021-09-02 14:49] LABS: INR 1.05 (0.8-1.2)
[2021-09-02 14:50] LABS: Add Urine Culture? Yes; Add Urine Microscopic? YES; Bacteria Urine 4+ /hpf; Leukocyte Esterase Urine 1+ (Negative); Transitional Epi Cells Urine 0-4 /hpf; WBC Urine TOO NUMEROUS TO CNT /hpf (0-5)
[2021-09-02 14:50] LABS: Partial Thromboplastin Time 36.2 SECONDS (23.9-36.7)
[2021-09-02 15:07] LABS: Alanine Aminotransferase 17 U/L (0-33); Albumin Level 3.9 g/dL (3.5-5.2); Alkaline Phosphatase 113 IU/L (35-105); Anion Gap 16.5 (5-19); Aspartate Amino Transferase 19 U/L (0-32); Blood Urea Nitrogen 32 mg/dL (8-23); Calcium 9.3 mg/dL (8.5-10.5); Carbon Dioxide 26 mmol/L (22-29); Chloride 97 mmol/L (98-107); Globulin 2.6 g/dL (1.3-4.6); Glucose 124 mg/dL (65-115); NT Pro B Type Natriuretic Pept 1864 pg/mL (0-450); Osmolality Calculated 288 mOsm/kg (285-295); Potassium 4.5 mmol/L (3.5-5.1); Sodium 135 mmol/L (136-145); Thyroid Stimulating Hormone 3.26 uIU/mL (0.27-4.20); Total Bilirubin 0.8 mg/dL (0.15-1.2); Total Protein 6.5 g/dL (6.6-8.7)
[2021-09-02] MEDS: fentaNYL 50 mcg/mL INJ 2mL IVP ×2 (16:35→16:45)
[2021-09-02] MEDS: midazolam 1 mg/mL INJ 2 mL IVP ×2 (16:40→16:45)
--- NOTE | 2021-09-02 16:55 | PC.NURSE ---
Procedure time 1639- Medication given Fentanyl 25 mcg IVP and Versed 2 mg IVP by Lorena HAMM. Dr Lala at bedside to reduce jaw , noted 2 skin tears to bilateral side of neck during procedure. More medication verbal order per Dr Lala at 1643: Fentanyl 25 mcg IVP and Versed 2 mg IVP at 1644. Neck skin tears treated, skin pulled together and covered with Covaderm. Post x-ray at 1658.
[2021-09-02] MEDS: sodium chloride 0.9% 1,000 ML 30 ML IV ×2 (16:58→22:01)
--- NOTE | 2021-09-02 16:59 | XR_ITS ---
WS: [id number] HISTORY: Dislocation, reset. EXAMINATION: 2 views from the lateral projection. FINDINGS: Very limited examination with overlap of bony structures. No definite fracture or dislocation identified. XR/XR mandible <4V [id number] IMPRESSION: No abnormality identified.
[2021-09-02 17:11] LABS: Troponin(5th) Baseline 54 ng/L (0-10)
--- NOTE | 2021-09-02 17:11 | CTR_ITS ---
PROCEDURE INFORMATION: Exam: CT Maxillofacial Without Contrast; Mandible Exam date and time: 09/02/2021 5:11 PM Age: 81 years old Clinical indication: Injury or trauma; Fall; Blunt trauma (contusions or hematomas); Jaw; Bilateral; Additional info: Post reduction, assess mandibular position TECHNIQUE: Imaging protocol: Computed tomography maxillofacial without contrast. Exam focused on the mandible. Radiation optimization: All CT scans at this facility use at least one of these dose optimization techniques: automated exposure control; mA and/or kV adjustment per patient size (includes targeted exams where dose is matched to clinical indication); or iterative reconstruction. COMPARISON: CT facial bones wo con* [id number] 09/02/2021 2:07 PM RADIATION DOSE METRICS: Total DLP (mGy-cm): 805 FINDINGS: Bilateral TMJ dislocations have been reduced. No acute fracture is seen. No other significant change. CT/CT facial bones wo con* [id number] IMPRESSION: Interval reduction of bilateral TMJ dislocations. Radiation Dose CTDIVOL = (mGy): DLP = 805 (mGy-cm)
[2021-09-02 17:13] LABS: Troponin 5 2HR 48.18 ng/L (0-10)
[2021-09-02 17:15] LABS: Troponin 5 2HR Delta -5.82 ABS# (0-10)
[2021-09-02 20:33] LABS: Troponin 5 6HR 42.18 ng/L (0-10)
[2021-09-02 20:36] LABS: Troponin 5 6HR Delta -11.82 ng/L (0-12)
--- NOTE | 2021-09-02 21:35 | P.HP_ITS ---
Providers/Chief Complaint Admitting Physician: Annie Cunningham MD Primary Care Provider: Lee Tyler DO Chief Complaint: fall, poss bilat hip and jaw fx History of Present Illness Christina Mc is a 81 year old female with a past medical history of dementia, recent admission between August 21 August 21, 2021 for a right femoral neck fracture sustained after an unwitnessed fall. She underwent uncomplicated repair on August 19, 2021. Discharge was arranged to detention facility. She returns into the emergency room today after having sustained a witnessed fall at [facility] on Thursday. Since then it was noted that patient has not been able to close her jaw and there was also noted concern for external rotation over the hip. Patient is unable to participate in any history at this time. She was noted to have significant bilateral TMJ dislocations which were reduced in the ER. No acute facial fractures were noted. A vertical oblique fracture was noted through the greater trochanter at the right hip. CT of the chest abdomen or pelvis did not identify any acute abnormalities. CT C- spine additionally did not reveal any acute fractures. Review of Systems General: Reports: ROS unobtainable due to mental status Medications/Allergies Home Medications Medication Instructions Recorded Confirmed Last Taken Type acetaminophen 650 mg PO Q6H PRN 05/10/21 09/02/21 Unknown History atorvastatin 20 mg PO BEDTIME@05/10/21 09/02/21 08/18/21 History bisacodyl 10 mg HI DAILY PRN 05/10/21 09/02/21 Unknown History acetaminophen [Tylenol Extra 500 mg PO BEDTIME@08/19/21 09/02/21 08/18/21 History Strength] cetirizine [Zyrtec] 10 mg PO DAILY PRN 08/19/21 09/02/21 Unknown History aspirin [Adult Low Dose Aspirin] 81 mg PO DAILY #30 tab 08/21/21 09/02/21 Unknown Rx enoxaparin [Lovenox] 40 mg SUBCUT DAILY #5.6 ml 08/21/21 09/02/21 Unknown Rx hydrocodone-acetaminophen 1 tab PO Q6H PRN #20 tab 08/21/21 09/02/21 Unknown Rx alprazolam [Xanax] 0.5 mg PO BID PRN 09/02/21 09/02/21 Unknown History mineral oil [Enema] 118 ml HI DAILY PRN 09/02/21 09/02/21 Unknown History Allergies Allergy/AdvReac Type Severity Reaction Status Date / Time Penicillins Allergy RASH Verified 04/15/21 09:06 Sulfa (Sulfonamide Allergy ALGY-Difficulty Verified 09/02/21 21:15 Antibiotics) Breathing PFSH Acute PFSH: Medical History Anxiety Dementia Hyperlipidemia Hypertension Hyponatremia Tremor Surgical History History of breast biopsy History of repair of rectocele History of vaginal hysterectomy Family History Other Hyperlipidemia Hypertension Social History Smoking and tobacco status: never smoked Alcohol intake: current Alcohol intake frequency: holidays/special occasions only Vitals/I&O/Wt Last Vital Signs Temp 99.0 F 09/02/21 16:35 Pulse 72 09/02/21 21:03 Resp 16 09/02/21 21:03 BP 141/71 09/02/21 21:03 Pulse Ox 98 09/02/21 21:03 09/02/21 09/02/21 09/02/21 06:59 14:59 22:59 Intake Total 1500 / 1500 Balance 1500 / 1500 Weight last 48 hrs Weight 51.71 kg Weight 40.823 kg Physical Exam Narrative: EXAM NARRATIVE: General: No acute distress, AO x1 HEENT: PERRLA, pupils bilaterally equal and reactive, pallors not present Chest: Normal vesicular breath sounds, no added sounds, equal good air entry bilaterally CVS: S1-S2 regular, no murmurs, no tachycardia, no gallops, no rubs Abdomen: Soft, nontender, no organomegaly, bowel sounds present Neuro: lethragic, not folloiwing commands, moves upper extremities in bed Data : 09/02/21 14:00 09/02/21 14:00 Micro: Microbiology 09/02/21 14:02 Blood Culture - Preliminary Blood SPECIMEN COLLECTED 09/02/21 14:00 Blood Culture - Preliminary Blood SPECIMEN COLLECTED A&P Assessment and plan (1) Periprosthetic fracture around internal prosthetic hip joint: Sustained after mechanical fall few days ago. Orthopedics consult to assess for surgical intervention. Pain control with as needed morphine We will try to avoid excess opiates due to lethargy. Presurgical Covid PCR screen Status: Acute (2) TMJ dislocation: Reduced in the ER earlier today. Status: Acute (3) UTI (urinary tract infection): UA with 1+ leukocyte Estrace, multiple WBCs, 4+ bacteria Start empiric ceftriaxone 1 g IV every 24 hours for treatment. Status: Acute (4) Dementia: Status: Acute Additional A&P Information DVT prophylaxis: Lovenox Full code Attestations Medical Necessity Statement*: Anticipate greater than 2 midnight admission for hip fracture, possible surgical repair, UTI, need for IV antibiotics Coding Level of Care Code Acute Database Developer for g Fwd Diagnoses Periprosthetic fracture around internal prosthetic hip joint M97.8XXA; Z96.649 TMJ dislocation S03.00XA UTI (urinary tract infection) N39.0 Dementia F03.90
[2021-09-02] MEDS: enoxaparin 40 mg/0.4 mL Syringe SUBCUT (22:00)
[2021-09-02] MEDS: cefTRIAXone 1,000 MG in sodium chloride 0.9% (plus) 50 ML 100 MG IV (22:00)
--- NOTE | 2021-09-02 22:03 | PC.NURSE ---
Pt arrived to unit at 2105 via gurney and ED nurse. Four [place] transfer [place] to bed. Warren patent draining clear yellow urine. Dressing in place to neck with scant drainage. Pt easily arousable to touch. Moaning. Daughter by side and answered admission questions the best to her knowledge.
--- NOTE | 2021-09-02 22:57 | PC.NURSE ---
Call placed to [facility] and spoke with Nayana requesting recent medication list. Stated she would get it faxed over to us.
[2021-09-03] VITALS (13 sets, daily range): BP systolic 110–171; BP diastolic 58–83; PULSE 63–92; RESP 15–17; TEMP 36.3–37.2; O2SAT 94–100
[2021-09-03 05:22] LABS: Glucose Point of Care 163 mg/dL (70-110)
[2021-09-03 06:34] LABS: Alanine Aminotransferase 13 U/L (0-33); Albumin Level 3.2 g/dL (3.5-5.2); Alkaline Phosphatase 94 IU/L (35-105); Anion Gap 9.7 (5-19); Aspartate Amino Transferase 16 U/L (0-32); Blood Urea Nitrogen 25 mg/dL (8-23); Calcium 8.7 mg/dL (8.5-10.5); Carbon Dioxide 27 mmol/L (22-29); Chloride 104 mmol/L (98-107); Creatinine Clr Calc Pharmacy 49.4051; Globulin 2.1 g/dL (1.3-4.6); Glucose 101 mg/dL (65-115); Osmolality Calculated 289 mOsm/kg (285-295); Potassium 3.7 mmol/L (3.5-5.1); Sodium 137 mmol/L (136-145); Total Bilirubin 0.6 mg/dL (0.15-1.2); Total Protein 5.3 g/dL (6.6-8.7)
--- NOTE | 2021-09-03 08:06 | P.CONIM_ITS ---
Documented by User: CINDY Porter 09/03/21 08:37 Providers/Reason For Consult Consulting Physician/Specialty*: Orthopoedics Reason for Consult*: Right hip pain Attending Physician: Leeroy Lal MD Primary Care Provider: Lee Tyler DO History of Present Illness History of Present Illness Christina Mc is a 81 year old female who suffers from dementia presents back to [facility] following a [facility] at the [place] [facility] that was witnessed. She underwent hemiarthroplasty on August 21. She presented back following the fall 2 was her healthcare emergency room where x-rays confirmed a periprosthetic right hip fracture. Orthopedics was consulted and she was evaluated in room 272. No family was present. She is a very poor historian due to her dementia. She had obvious external rotation of the right lower extremity. She does have positive logroll on the right. Most of the information was gleaned from the chart due to her poor mental status. Review of Systems General: Reports: 10 or more systems reviewed and unremarkable except in HPI and below Psych: Reports: other Meds/Allergies Home Medications and Allergies Home Medications Medication Instructions Recorded Confirmed Last Taken Type acetaminophen 650 mg PO Q6H PRN 05/10/21 09/02/21 Unknown History atorvastatin 20 mg PO BEDTIME@05/10/21 09/02/21 08/18/21 History bisacodyl 10 mg AL DAILY PRN 05/10/21 09/02/21 Unknown History acetaminophen [Tylenol Extra 500 mg PO BEDTIME@08/19/21 09/02/21 08/18/21 History Strength] cetirizine [Zyrtec] 10 mg PO DAILY PRN 08/19/21 09/02/21 Unknown History aspirin [Adult Low Dose Aspirin] 81 mg PO DAILY #30 tab 08/21/21 09/02/21 Unknown Rx enoxaparin [Lovenox] 40 mg SUBCUT DAILY #5.6 ml 08/21/21 09/02/21 Unknown Rx hydrocodone-acetaminophen 1 tab PO Q6H PRN #20 tab 08/21/21 09/02/21 Unknown Rx alprazolam [Xanax] 0.5 mg PO BID PRN 09/02/21 09/02/21 Unknown History mineral oil [Enema] 118 ml AL DAILY PRN 09/02/21 09/02/21 Unknown History Allergies Allergy/AdvReac Type Severity Reaction Status Date / Time Penicillins Allergy RASH Verified 04/15/21 09:06 Sulfa (Sulfonamide Allergy ALGY-Difficulty Verified 09/02/21 21:15 Antibiotics) Breathing Current Medications Current Medications Generic Name Dose Route Start Last Admin Trade Name Freq PRN Reason Stop Dose Admin Enoxaparin Sodium 40 mg 09/02/21 22:00 09/02/21 22:00 Enoxaparin 40 Mg/0.4 Ml Syringe SUBCUT 40 mg Q24H MONTY Administration Sodium Chloride 1,000 mls @ 30 mls/hr 09/02/21 16:26 09/02/21 22:01 Sodium Chloride 0.9% IV 09/03/21 16:25 30 mls/hr .Q24H ONE Administration Ceftriaxone Sodium 1,000 mg/ 50 mls @ 100 mls/hr 09/02/21 22:00 09/02/21 22:33 Sodium Chloride IV Infused Q24H MONTY Infusion Protocol PFSH Acute PFSH: Medical History Anxiety Dementia Hyperlipidemia Hypertension Hyponatremia Tremor Surgical History History of breast biopsy History of repair of rectocele History of vaginal hysterectomy Family History Other Hyperlipidemia Hypertension Social History Smoking and tobacco status: never smoked Alcohol intake: current Alcohol intake frequency: holidays/special occasions only Vitals/I&O/Wt Last Vital Signs Temp 98.2 F 09/03/21 04:00 Pulse 67 09/03/21 04:00 Resp 16 09/03/21 04:00 BP 158/77 09/03/21 04:00 Pulse Ox 100 09/03/21 04:00 09/02/21 09/03/21 09/03/21 22:59 06:59 14:59 Intake Total 1550 / 1550 Output Total 250 / 250 100 / 350 Balance 1300 / 1300 -100 / 1200 Weight last 48 hrs Weight 114 lb Weight 90 lb Physical Exam Narrative: EXAM NARRATIVE: She is alert in no obvious distress. No family is present due to due to her history of dementia. She has obvious external rotation of the right lower extremity. Danni still present over the right hip from previous surgery appears to be clean and dry. She appears to have normal sensation light touch she wiggles her digits dorsalis pedis posterior pulses are palpable calves are supple. Data Micro: Micro: Microbiology 09/02/21 14:02 Blood Culture - Pr eliminary Blood SPECIMEN [facility] 09/02/21 14:00 Blood Culture - Pr eliminary Blood SPECIMEN [facility] A&P Assessment and plan (1) Periprosthetic fracture around internal prosthetic right hip joint, sequela: Discussed with her partner Dr. Cano total joint specialist she will proceed with open reduction internal fixation of the right periprosthetic hip fracture. We will keep her n.p.o. Will await for medical clearance. 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 for Mitchell Bishop Diagnoses Periprosthetic fracture around internal prosthetic right hip joint, sequela M97.01XS Dementia F03.90 Periprosthetic fracture around internal prosthetic hip joint M97.8XXA; Z96.649 Documented by User: Christopher Perdue DO 09/03/21 09:29 Review of Systems General: Reports: 10 or more systems reviewed and unremarkable except in HPI and below and ROS unobtainable due to mental status Psych: Reports: other Meds/Allergies Home Medications and Allergies Home Medications Medication Instructions Recorded Confirmed Last Taken Type acetaminophen 650 mg PO Q6H PRN 05/10/21 09/02/21 Unknown History atorvastatin 20 mg PO BEDTIME@05/10/21 09/02/21 08/18/21 History bisacodyl 10 mg AL DAILY PRN 05/10/21 09/02/21 Unknown History acetaminophen [Tylenol Extra 500 mg PO BEDTIME@08/19/21 09/02/21 08/18/21 History Strength] cetirizine [Zyrtec] 10 mg PO DAILY PRN 08/19/21 09/02/21 Unknown History aspirin [Adult Low Dose Aspirin] 81 mg PO DAILY #30 tab 08/21/21 09/02/21 Unknown Rx enoxaparin [Lovenox] 40 mg SUBCUT DAILY #5.6 ml 08/21/21 09/02/21 Unknown Rx hydrocodone-acetaminophen 1 tab PO Q6H PRN #20 tab 08/21/21 09/02/21 Unknown Rx alprazolam [Xanax] 0.5 mg PO BID PRN 09/02/21 09/02/21 Unknown History mineral oil [Enema] 118 ml AL DAILY PRN 09/02/21 09/02/21 Unknown History Allergies Allergy/AdvReac Type Severity Reaction Status Date / Time Penicillins Allergy RASH Verified 04/15/21 09:06 Sulfa (Sulfonamide Allergy ALGY-Difficulty Verified 09/02/21 21:15 Antibiotics) Breathing PFSH Acute PFSH: Medical History Anxiety Dementia Hyperlipidemia Hypertension Hyponatremia Tremor Surgical History History of breast biopsy History of repair of rectocele History of vaginal hysterectomy Family History Other Hyperlipidemia Hypertension Social History Smoking and tobacco status: never smoked Alcohol intake: current Alcohol intake frequency: holidays/special occasions only A&P Assessment and plan (1) Periprosthetic fracture around internal prosthetic hip joint: Patient was evaluated by myself. I discussed the case with she agreed to take on the case. At this point she planning on doing the case either tomorrow or . We need to get equipment brought in in order to do this case. I agree with the assessment and plan. Status: Acute Coding Level of Care Code Acute Industrial Fabric Cutter for [employer] Bishop Diagnoses Periprosthetic fracture around internal prosthetic right hip joint, sequela M97 .01XS Dementia F03.90 Periprosthetic fracture around internal prosthetic hip joint M97.8XXA; Z96.649
[2021-09-03 10:00] LABS: Basophils # 0.1 10^3/uL (0.0-0.1); Basophils % 0.9 %; Eosinophils # 0.1 10^3/uL (0.0-0.8); Eosinophils % 1.7 %; Hematocrit 24.7 % (37.0-47.0); Hemoglobin 7.7 g/dL (11.5-15.3); Lymphocytes # 0.8 10^3/uL (0.8-4.8); Lymphocytes % 10.7 %; Mean Corpuscular HGB Conc 31.2 g/dL (30.0-36.0); Mean Corpuscular Hemoglobin 30.1 pg (28.0-34.0); Mean Corpuscular Volume 96.5 fl (81-99); Mean Platelet Volume 9.6 fL (7.4-10.4); Monocytes # 0.8 10^3/uL (0.2-0.9); Monocytes % 11.3 %; Neutrophils # 5.28 10^3/uL (1.8-7.7); Neutrophils % 75.3 %; Nucleated Red Blood Cells % 0 %; Platelet Count 268 10^3/cmm (130-400); Red Blood Count 2.56 10^6/uL (4.1-5.3); Red Cell Distribution Width 13.2 % (12.1-15.1)
--- NOTE | 2021-09-03 10:13 | PC.CHAP ---
Pastoral Care Encounter/Spiritual Assessment Type of Contact [] Declined aboriginal education worker coordinator visit [] Patient/Family/Request visit [] Outpatient visit [] Follow-up visit [] Physician referral [] Code/Alert [] Routine visit [] Staff referral [] Actively dying [] Patient sleeping [] Family support [] [] Out of room [] Palliative care [] [] Receiving care in room [] Pre-surgical visit [] Trauma [] Long length of stay [] ICU visit [x] Other: Isolation Relational/Emotional Strength [] Patient feels connected with others/family/visitors/staff [] Distress [] Loneliness/isolation [] Abandonment Spirituality of Patient [] Person of Eufemia [] Attends Nondenominational of their Eufemia [] Believes in Prayer [] Reads Bible or Bahai materials [] There are Spiritual issues to be addressed Associate Professor Of Literacy Interventions [] Prayer [] Active listening [] Non-anxious presence [] Spiritual/emotional support [] Crisis/trauma care [] Spiritual counseling [] Bereavement support [] Provided bereavement packet [] Provided Bible/devotional materials [] Provided toy/stuffed animal, coloring book to patient or family member [] Provided Communion [] Anointing/[place] [] Salvation [] Completed spiritual assessment [] Other: Impact on Illness or Injury [] Angry [] Fearful [] Anxious [] Often cries [] Exhaustion [] Unable to work [] Unable to attend sabianist [] Unable to walk/stand [] Unable to read [] Unable to drive [] Unable to eat/drink [] Unable to sleep [] Unable to be with family [] Patient intubated [] Other: Summary Time spent with patient
[2021-09-03] MEDS: HYDROcodone-acetaminophen 5-325 mg Tablet 1 TAB PO ×2 (14:08→21:48)
--- NOTE | 2021-09-03 16:02 | PM.PN ---
Subjective Subjective: Interval history: This morning patient was examined, her daughter is at bedside, she has received pain medication she was a bit drowsy, but can answer basic questions, she tells me her jaw pain has significantly improved, since being reduced, she continues to have significant hip pain, no nausea, vomiting, no chest pain, according to patient's daughter she has dementia, this is her second fall, nursing staff found her in the hallway, is unsure for how long she was on the floor, she in the dementia unit at her current shelter, has a history of wandering, she does follow basic commands such as squeezing my fingers, opening her eyes, but is quite drowsy Vitals/I&O/Wt Last Vital Signs Temp 97.4 F L 09/03/21 12:00 Pulse 92 09/03/21 12:00 Resp 16 09/03/21 12:00 BP 130/65 09/03/21 12:00 Pulse Ox 96 09/03/21 12:00 09/03/21 09/03/21 09/03/21 06:59 14:59 22:59 Output Total 100 / 350 Balance -100 / 1200 Weight last 48 hrs Weight 51.71 kg Weight 40.823 kg Physical Exam Const: COMMON NORMALS: no acute distress GENERAL APPEARANCE: cooperative ORIENTATION/CONSCIOUSNESS: Yes awake, Yes oriented to person and Yes confused; not oriented to place and not oriented to time Neck/C-Spine: OTHER: Neck, multiple bandages, clean and dry, Resp: COMMON NORMALS: normal respiratory effort, No retractions, No use of accessory muscles and clear to auscultation bilaterally AUSCULTATION: clear to auscultation bilaterally Cardio: COMMON NORMALS: regular rate, regular rhythm, S1 normal heart sound present and S2 normal heart sound present RATE: regular rate RHYTHM: regular rhythm HEART SOUNDS: S1 normal heart sound present and S2 normal heart sound present GI: COMMON NORMALS: Normal to inspection, nondistended, normoactive bowel sounds present, Soft to palpation and non-tender PALPATION: Yes Soft to palpation Back/Pelvis: OTHER: Left hip, surgical oleksandr in place from prior surgery Extremity: COMMON NORMALS: no pedal edema NARRATIVE EXTREMITY EXAM: DP PT pulses palpable bilaterally Neuro: SENSORIUM/ORIENTATION: Yes oriented to person, No oriented to place and No oriented to time Data : 09/03/21 05:10 09/03/21 05:10 Micro: Microbiology 09/02/21 14:02 Blood Culture - Preliminary Blood NEGATIVE TO DATE 09/02/21 14:00 Blood Culture - Preliminary Blood NEGATIVE TO DATE 09/02/21 13:55 Urine Culture - Preliminary Urine,Clean Catch Gram Negative Rods A&P Assessment and plan (1) Periprosthetic fracture around internal prosthetic hip joint: Sustained after mechanical fall Orthopedics consult, n.p.o. midnight, surgical intervention tomorrow morning Pain control with as needed morphine We will try to avoid excess opiates due to lethargy. Presurgical Covid PCR screen Status: Acute (2) TMJ dislocation: Reduced in the ER earlier today. Status: Acute (3) UTI (urinary tract infection): UA with 1+ leukocyte Estrace, multiple WBCs, 4+ bacteria Start empiric ceftriaxone 1 g IV every 24 hours for treatment. 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
--- NOTE | 2021-09-03 16:12 | PC.NURSE ---
Attempted to call blood bank at this time and patient's blood is not ready.
--- NOTE | 2021-09-03 17:35 | PC.NURSE ---
Attempted again to call for patient's blood and was told that blood bank will call me when the blood is ready.
--- NOTE | 2021-09-03 17:38 | P.CONIM_ITS ---
Providers/Reason For Consult Consulting Physician/Specialty*: Dr. Cathy Ortiz Reason for Consult*: Periprosthetic right femur fracture Attending Physician: Leeroy Lal MD Primary Care Provider: Lee Tyler DO History of Present Illness History of Present Illness Christina Mc is a 81 year old female who was admitted through the emergency department on September 02 for evaluation after a fall. Reportedly, according to the family, the patient had a fall proximately a week ago, but subsequently, she had a second fall at which time her hip was injured. Upon presentation to the emergency department, she was found to have a dislocated temporomandibular joint as well as a periprosthetic right hip fracture. The patient is seen this evening with her family and discussion is undertaken regarding treatment plans. The patient had a bipolar hip arthroplasty on 08/19/21 [facility] Dr. Perdue. Review of Systems General: Reports: 10 or more systems reviewed and unremarkable except in HPI and below and ROS unobtainable due to mental status Meds/Allergies Home Medications and Allergies Home Medications Medication Instructions Recorded Confirmed Last Taken Type acetaminophen 650 mg PO Q6H PRN 05/10/21 09/02/21 Unknown History atorvastatin 20 mg PO BEDTIME@05/10/21 09/02/21 08/18/21 History bisacodyl 10 mg GA DAILY PRN 05/10/21 09/02/21 Unknown History acetaminophen [Tylenol Extra 500 mg PO BEDTIME@08/19/21 09/02/21 08/18/21 History Strength] cetirizine [Zyrtec] 10 mg PO DAILY PRN 08/19/21 09/02/21 Unknown History aspirin [Adult Low Dose Aspirin] 81 mg PO DAILY #30 tab 08/21/21 09/02/21 Unknown Rx enoxaparin [Lovenox] 40 mg SUBCUT DAILY #5.6 ml 08/21/21 09/02/21 Unknown Rx hydrocodone-acetaminophen 1 tab PO Q6H PRN #20 tab 08/21/21 09/02/21 Unknown Rx alprazolam [Xanax] 0.5 mg PO BID PRN 09/02/21 09/02/21 Unknown History mineral oil [Enema] 118 ml GA DAILY PRN 09/02/21 09/02/21 Unknown History Allergies Allergy/AdvReac Type Severity Reaction Status Date / Time Penicillins Allergy RASH Verified 04/15/21 09:06 Sulfa (Sulfonamide Allergy ALGY-Difficulty Verified 09/02/21 21:15 Antibiotics) Breathing Current Medications Current Medications Generic Name Dose Route Start Last Admin Trade Name Freq PRN Reason Stop Dose Admin Hydrocodone Bitart/Acetaminophen 1 tab 09/02/21 21:39 09/03/21 14:08 Hydrocodone-Acetaminophen 5-325 Mg Tablet PO 1 tab Q6H PRN Administration pain Aspirin 81 mg 09/03/21 09:00 09/03/21 08:09 Aspirin 81 Mg Ec Tablet PO Not Given DAILY MONTY Ceftriaxone Sodium 1,000 mg/ 50 mls @ 100 mls/hr 09/02/21 22:00 09/02/21 22:33 Sodium Chloride IV Infused Q24H MONTY Infusion Protocol Pantoprazole Sodium 40 mg 09/03/21 09:00 09/03/21 10:[address] 40 Mg Tablet PO Not Given DAILY MONTY PFSH Acute PFSH: Medical History Anxiety Dementia Hyperlipidemia Hypertension Hyponatremia Tremor Surgical History History of breast biopsy History of repair of rectocele History of vaginal hysterectomy Family History Other Hyperlipidemia Hypertension Social History Smoking and tobacco status: never smoked Alcohol intake: current Alcohol intake frequency: holidays/special occasions only Vitals/I&O/Wt Last Vital Signs Temp 97.9 F 09/03/21 16:00 Pulse 74 09/03/21 16:00 Resp 15 09/03/21 16:00 BP 110/64 09/03/21 16:00 Pulse Ox 96 09/03/21 16:00 09/03/21 09/03/21 09/03/21 06:59 14:59 22:59 Intake Total 100 / 100 Output Total 100 / 350 Balance -100 / 1200 100 / 100 Weight last 48 hrs Weight 114 lb Weight 90 lb Physical Exam Const: COMMON NORMALS: no acute distress and average body habitus GENERAL APPEARANCE: comfortable ORIENTATION/CONSCIOUSNESS: Yes awake HENMT: COMMON NORMALS: normocephalic HEAD & SCALP: normocephalic FACE & SINUS: other (ecchymosis secondary to fall) MOUTH: other (TMJ Dislocation remains reduced) Eye: GENERAL EYE: appearance normal, both eyes and all related structures Chest: COMMONS NORMALS: normal inspection of the chest Resp: COMMON NORMALS: normal respiratory effort EFFORT & INSPECTION: Yes able to speak in complete sentences and Yes symmetric chest movement Extremity: RIGHT LOWER EXTREMITY: Yes hip joint Right hip: Yes inspection ([place] intact ), Yes palpation (Tender), Yes ROM (Not evaluated) and Yes neurovascular exam (Intact motor and sensory) Psych: APPEARANCE: Yes grossly normal ATTITUDE: Yes calm ATTENTION/CONCENTRATION: Yes attention grossly intact Skin: COMMON NORMALS: no rashes or lesions noted GENERAL SKIN EXAM: no rashes or lesions noted Data Micro: Micro: Microbiology 09/02/21 14:02 Blood Culture - Pr eliminary Blood NEGATIVE TO HEAVEN E 09/02/21 14:00 Blood Culture - Pr eliminary Blood NEGATIVE TO HEAVEN E 09/02/21 13:55 Urine Culture - Pr eliminary Urine,Clean Catch Gram Negative R ods Imaging^: Xray Ortho: I personally reviewed and interpreted this imaging study as follows: My impression: Periprosthetic fracture Right Hip Bipolar A&P Assessment and plan (1) Periprosthetic fracture around internal prosthetic hip joint: Patient and family advised of fracture and treatment plan. Patient will require [employer] Modular due to proximal fracture. Risks and complications are discussed and family agrees with surgical plan. Equipment availability confirmed for surgery Thursday PM. Status: Acute Coding Level of Care Code Acute Vineyard Worker for cherelle Bishop Diagnoses Periprosthetic fracture around internal prosthetic hip joint M97.8XXA; Z96.649
--- NOTE | 2021-09-03 18:46 | PC.NURSE ---
Unit of [facility] started at 1835. Patient is tolerating well. Will continue to remain at bedside and monitor patient for the first 15 minutes. Patient family at bedside at this time as well.
--- NOTE | 2021-09-03 19:17 | PC.NURSE ---
Report to Kellen PINA at this time.
[2021-09-03 20:04] LABS: Coronavirus Test Green County Not Detected
[2021-09-03] MEDS: atorvastatin 40 mg Tablet PO (20:50)
--- NOTE | 2021-09-03 20:50 | PC.NURSE ---
pt confused and pulled out iv. new insertion to right fa per order/policy, pt tolerated well.
[2021-09-03] MEDS: cefTRIAXone 1,000 MG in sodium chloride 0.9% (plus) 50 ML 100 MG IV (22:30)
[2021-09-04] VITALS (25 sets, daily range): BP systolic 84–183; BP diastolic 60–94; PULSE 68–84; RESP 10–24; TEMP 35.6–36.9; O2SAT 95–100
--- NOTE | 2021-09-04 00:07 | PC.NURSE ---
provider requested to hold heparin at this time
[2021-09-04 01:01] LABS: Hematocrit 27.1 % (37.0-47.0); Hemoglobin 8.8 g/dL (11.5-15.3)
--- NOTE | 2021-09-04 03:27 | PC.NURSE ---
Catheter put in while patient was in the Emergency Department.
[2021-09-04 05:40] LABS: Basophils # 0.1 10^3/uL (0.0-0.1); Basophils % 0.7 %; Eosinophils # 0.3 10^3/uL (0.0-0.8); Eosinophils % 4.6 %; Hematocrit 28.5 % (37.0-47.0); Hemoglobin 9.4 g/dL (11.5-15.3); Lymphocytes % 13.3 %; Mean Corpuscular Hemoglobin 30.9 pg (28.0-34.0); Mean Corpuscular Volume 93.8 fl (81-99); Mean Platelet Volume 9.5 fL (7.4-10.4); Monocytes # 0.9 10^3/uL (0.2-0.9); Neutrophils # 4.94 10^3/uL (1.8-7.7); Nucleated Red Blood Cells % 0 %; Platelet Count 256 10^3/cmm (130-400); Red Blood Count 3.04 10^6/uL (4.1-5.3); Red Cell Distribution Width 13.2 % (12.1-15.1); White Blood Count 7.2 10^3/uL (4.0-10.0)
[2021-09-04 06:10] LABS: Alanine Aminotransferase 11 U/L (0-33); Albumin Level 2.9 g/dL (3.5-5.2); Alkaline Phosphatase 96 IU/L (35-105); Anion Gap 11.7 (5-19); Aspartate Amino Transferase 13 U/L (0-32); Blood Urea Nitrogen 25 mg/dL (8-23); Calcium 8.5 mg/dL (8.5-10.5); Carbon Dioxide 25 mmol/L (22-29); Chloride 105 mmol/L (98-107); Creatinine Clr Calc Pharmacy 49.4051; Globulin 2.4 g/dL (1.3-4.6); Glucose 96 mg/dL (65-115); Magnesium 2.1 mg/dL (1.7-2.3); Osmolality Calculated 290 mOsm/kg (285-295); Phosphorus 2.8 mg/dL (2.5-4.5); Potassium 3.7 mmol/L (3.5-5.1); Sodium 138 mmol/L (136-145); Total Bilirubin 1.2 mg/dL (0.15-1.2); Total Protein 5.3 g/dL (6.6-8.7)
--- NOTE | 2021-09-04 13:18 | PC.NURSE ---
Patient to surgery at this time.
[2021-09-04] MEDS: sodium chloride 0.9% 1,000 ML 30 ML IV (13:38)
[2021-09-04] MEDS: acetaminophen 1,000 MG/100 ML PIGGYBACK 400 MG IV (13:39)
[2021-09-04] MEDS: CELEcoxib 100 mg Capsule 400 MG PO (13:39)
--- NOTE | 2021-09-04 13:56 | ANES.PREANE2 ---
Pre-Anesthetic Assessment Pre-Anesthetic Assessment: Height/Weight: Height 1.65 m Weight 51.71 kg Temp Pulse Resp BP Pulse Ox 98.5 F 79 18 183/87 96 09/04/21 12:00 09/04/21 12:00 09/04/21 12:00 09/04/21 12:00 09/04/21 12:00 Preop Diagnosis: Right periprosthetic hip fracture Proposed Procedure: Operation Date: 09/04/21 14:00 Proposed Procedures p Total Hip Arthroplasty Revision(Right) - Cathy Ortiz MD Was Beta Raz taken within 24 hours: N/A Was Clonidine taken within 24 hours: N/A Social: Social History: No alcohol and No tobacco Exam: Pre-Anes Outpt Exam: alert, oriented x 3, clear to auscultation bilaterally and regular rate & rhythm Airway: Submandibular: WNL Cervical ROM: WNL MP: 2 Dentition: Full CV/HEM: CV/HEM: Anemia (Recent transfusion) and HTN Metabolic: Metabolic: Hyperlipidemia Neuropsych: Neuropsych: Anxiety, Dementia and TIA Anesthetic Plan: ASA status: 3 Anesthesia: Regional (specify below) (SAB) Risk of > 500 ml blood loss (7ml/kg in children): Yes, adequate IV access and fluids planned Meds/Allergies Current Medications: Current Medications Generic Name Dose Route Start Last Admin Trade Name Freq PRN Reason Stop Dose Admin Hydrocodone Bitart /Acetaminophen 1 tab 09/02/21 21:39 09/03/21 21:48 Hydrocodone-Acet aminophen 5-325 Mg Tablet PO 1 tab Q6H PRN Administration pain Aspirin 81 mg 09/03/21 09:00 09/04/21 13:14 Aspirin 81 Mg Ec Tablet PO Not Given DAILY MONTY Atorvastatin Calci um 40 mg 09/03/21 20:00 09/03/21 20:50 Atorvastatin 40 Mg Tablet PO 40 mg BEDTIME@20 MONTY Administration Heparin Sodium (Be ef Lung) 5,000 unit 09/03/21 22:00 09/04/21 13:14 Heparin 5,000 Un it/Ml Inj 1 Ml SUBCUT Not Given Q12H [facility] Ceftriaxone Sodium 1,000 mg/ 50 mls @ 100 mls/ hr 09/02/21 22:00 09/03/21 23:42 Sodium Chloride IV Infused Q24H [facility] Infusion Protocol Sodium Chloride 1,000 mls @ 30 ml s/hr 09/04/21 13:30 09/04/21 13:38 Sodium Chloride 0.9% IV 09/05/21 13:29 30 mls/hr .Q24H MONTY Administration Pantoprazole Sodiu m 40 mg 09/03/21 09:00 09/04/21 13:[address] 40 Mg Tablet PO Not Given DAILY MONTY PFSH Anesthesia PFSH: Medical History Anxiety Dementia Hyperlipidemia Hypertension Hyponatremia Tremor Surgical History History of breast biopsy History of repair of rectocele History of vaginal hysterectomy Family History Other Hyperlipidemia Hypertension Social History Smoking and tobacco status: never smoked Alcohol intake: current Alcohol intake frequency: holidays/special occasions only Data Anesthesia CBC & Chem 7: 09/04/21 05:00 09/04/21 05:00 Other Labs: Laboratory Results - last 48 hr 09/02/21 09/02/21 09/02/21 13:43 13:55 14:00 WBC 10.8 H RBC 2.93 L Hgb 8.9 L Hct 27.7 L MCV 94.5 MCH 30.4 MCHC 32.1 RDW 13.1 Plt Count 316 MPV 9.4 Neut % (Auto) 83.7 Lymph % (Auto) 5.9 [place] % (Auto) 9.7 Eos % (Auto) 0.0 Baso % (Auto) 0.4 Neut # (Auto) 9.05 H Lymph # (Auto) 0.6 L [place] # (Auto) 1.1 H Eos # (Auto) 0.0 Baso # (Auto) 0.0 Nucleated RBC % (auto) 0 Nucleated RBCs # 0.0 PT INR APTT Sodium Potassium Chloride Carbon Dioxide Anion Gap BUN Creatinine GFR Calculation Glucose POC Glucose 163 H Calculated Osmolality Lactate Calcium Phosphorus Magnesium Total Bilirubin AST ALT Alkaline Phosphatase Troponin T Baseline Troponin T 120 Minute Delta Troponin T Troponin T Hi Sens 6Hr Troponin T Hi Sens 6Hr Delta NT-Pro-B Natriuret Pep Total Protein Albumin Globulin TSH Urine Color Yellow Urine Appearance Cloudy Urine pH 7 Ur Specific [place] 1.010 Urine Protein Neg Urine Glucose (UA) Norm Urine Ketones Negative Urine Blood Neg Urine Nitrate Negative Urine Bilirubin Neg Urine Urobilinogen 1 H Ur Leukocyte Esterase 1+ H Urine RBC Not Reportable Urine WBC Too numerous to cnt H Ur Squamous Epith Cells 5-10 H Ur Transition Epith Cell 0-4 Amorphous Sediment Not Reportable Urine Bacteria 4+ H Nasal/Oral COVID-19 PCR Blood Type Rho(D) Type Antibody Screen Crossmatch 09/02/21 09/02/21 09/02/21 14:00 14:00 14:00 WBC RBC Hgb Hct MCV MCH MCHC RDW Plt Count MPV Neut % (Auto) Lymph % (Auto) [place] % (Auto) Eos % (Auto) Baso % (Auto) Neut # (Auto) Lymph # (Auto) [place] # (Auto) Eos # (Auto) Baso # (Auto) Nucleated RBC % (auto) Nucleated RBCs # PT Cancelled INR Cancelled APTT Cancelled Sodium 135 L Potassium 4.5 Chloride 97 L Carbon Dioxide 26 Anion Gap 16.5 BUN 32 H Creatinine 0.8 GFR Calculation Not Reportable Glucose 124 H POC Glucose Calculated Osmolality 288 Lactate 2.1 Calcium 9.3 Phosphorus Magnesium Total Bilirubin 0.8 AST 19 ALT 17 Alkaline Phosphatase 113 H Troponin T Baseline Troponin T 120 Minute Delta Troponin T Troponin T Hi Sens 6Hr Troponin T Hi Sens 6Hr Delta NT-Pro-B Natriuret Pep 1864 H Total Protein 6.5 L Albumin 3.9 Globulin 2.6 TSH 3.26 Urine Color Urine Appearance Urine pH Ur Specific [place] Urine Protein Urine Glucose (UA) Urine Ketones Urine Blood Urine Nitrate Urine Bilirubin Urine Urobilinogen Ur Leukocyte Esterase Urine RBC Urine WBC Ur Squamous Epith Cells Ur Transition Epith Cell Amorphous Sediment Urine Bacteria Nasal/Oral COVID-19 PCR Blood Type Rho(D) Type Antibody Screen Crossmatch 09/02/21 09/02/21 09/02/21 14:00 14:31 16:07 WBC RBC Hgb Hct MCV MCH MCHC RDW Plt Count MPV Neut % (Auto) Lymph % (Auto) [place] % (Auto) Eos % (Auto) Baso % (Auto) Neut # (Auto) Lymph # (Auto) [place] # (Auto) Eos # (Auto) Baso # (Auto) Nucleated RBC % (auto) Nucleated RBCs # PT 14.00 INR 1.05 APTT 36.2 Sodium Potassium Chloride Carbon Dioxide Anion Gap BUN Creatinine GFR Calculation Glucose POC Glucose Calculated Osmolality Lactate Calcium Phosphorus Magnesium Total Bilirubin AST ALT Alkaline Phosphatase Troponin T Baseline 54 H Troponin T 120 Minute 48.18 H Delta Troponin T -5.82 L Troponin T Hi Sens 6Hr Troponin T Hi Sens 6Hr Delta NT-Pro-B Natriuret Pep Total Protein Albumin Globulin TSH Urine Color Urine Appearance Urine pH Ur Specific [place] Urine Protein Urine Glucose (UA) Urine Ketones Urine Blood Urine Nitrate Urine Bilirubin Urine Urobilinogen Ur Leukocyte Esterase Urine RBC Urine WBC Ur Squamous Epith Cells Ur Transition Epith Cell Amorphous Sediment Urine Bacteria Nasal/Oral COVID-19 PCR Blood Type Rho(D) Type Antibody Screen Crossmatch 09/02/21 09/02/21 09/02/21 16:07 19:51 22:30 WBC RBC Hgb Hct MCV MCH MCHC RDW Plt Count MPV Neut % (Auto) Lymph % (Auto) [place] % (Auto) Eos % (Auto) Baso % (Auto) Neut # (Auto) Lymph # (Auto) [place] # (Auto) Eos # (Auto) Baso # (Auto) Nucleated RBC % (auto) Nucleated RBCs # PT INR APTT Sodium Potassium Chloride Carbon Dioxide Anion Gap BUN Creatinine GFR Calculation Glucose POC Glucose Calculated Osmolality Lactate Calcium Phosphorus Magnesium Total Bilirubin AST ALT Alkaline Phosphatase Troponin T Baseline Troponin T 120 Minute Delta Troponin T Troponin T Hi Sens 6Hr 42.18 H Troponin T Hi Sens 6Hr Delta -11.82 L NT-Pro-B Natriuret Pep Total Protein Albumin Globulin TSH Urine Color Urine Appearance Urine pH Ur Specific [place] Urine Protein Urine Glucose (UA) Urine Ketones Urine Blood Urine Nitrate Urine Bilirubin Urine Urobilinogen Ur Leukocyte Esterase Urine RBC Urine WBC Ur Squamous Epith Cells Ur Transition Epith Cell Amorphous Sediment Urine Bacteria Nasal/Oral COVID-19 PCR Not detected Blood Type A Positive Rho(D) Type Positive Antibody Screen Negative Crossmatch See Detail 09/03/21 09/03/21 09/04/21 05:10 05:10 00:26 WBC 7.0 RBC 2.56 L Hgb 7.7 L 8.8 L Hct 24.7 L 27.1 L MCV 96.5 MCH 30.1 MCHC 31.2 RDW 13.2 Plt Count 268 MPV 9.6 Neut % (Auto) 75.3 Lymph % (Auto) 10.7 [place] % (Auto) 11.3 Eos % (Auto) 1.7 Baso % (Auto) 0.9 Neut # (Auto) 5.28 Lymph # (Auto) 0.8 [place] # (Auto) 0.8 Eos # (Auto) 0.1 Baso # (Auto) 0.1 Nucleated RBC % (auto) 0 Nucleated RBCs # 0.0 PT INR APTT Sodium 137 Potassium 3.7 Chloride 104 Carbon Dioxide 27 Anion Gap 9.7 BUN 25 H Creatinine 0.6 GFR Calculation Not Reportable Glucose 101 POC Glucose Calculated Osmolality 289 Lactate Calcium 8.7 Phosphorus Magnesium Total Bilirubin 0.6 AST 16 ALT 13 Alkaline Phosphatase 94 Troponin T Baseline Troponin T 120 Minute Delta Troponin T Troponin T Hi Sens 6Hr Troponin T Hi Sens 6Hr Delta NT-Pro-B Natriuret Pep Total Protein 5.3 L Albumin 3.2 L Globulin 2.1 TSH Urine Color Urine Appearance Urine pH Ur Specific [place] Urine Protein Urine Glucose (UA) Urine Ketones Urine Blood Urine Nitrate Urine Bilirubin Urine Urobilinogen Ur Leukocyte Esterase Urine RBC Urine WBC Ur Squamous Epith Cells Ur Transition Epith Cell Amorphous Sediment Urine Bacteria Nasal/Oral COVID-19 PCR Blood Type Rho(D) Type Antibody Screen Crossmatch 09/04/21 09/04/21 05:00 05:00 WBC 7.2 RBC 3.04 L Hgb 9.4 L Hct 28.5 L MCV 93.8 MCH 30.9 MCHC 33.0 D RDW 13.2 Plt Count 256 MPV 9.5 Neut % (Auto) 69.0 Lymph % (Auto) 13.3 [place] % (Auto) 12.0 Eos % (Auto) 4.6 Baso % (Auto) 0.7 Neut # (Auto) 4.94 Lymph # (Auto) 1.0 [place] # (Auto) 0.9 Eos # (Auto) 0.3 Baso # (Auto) 0.1 Nucleated RBC % (auto) 0 Nucleated RBCs # 0.0 PT INR APTT Sodium 138 Potassium 3.7 Chloride 105 Carbon Dioxide 25 Anion Gap 11.7 BUN 25 H Creatinine 0.6 GFR Calculation Not Reportable Glucose 96 POC Glucose Calculated Osmolality 290 Lactate Calcium 8.5 Phosphorus 2.8 Magnesium 2.1 Total Bilirubin 1.2 AST 13 ALT 11 Alkaline Phosphatase 96 Troponin T Baseline Troponin T 120 Minute Delta Troponin T Troponin T Hi Sens 6Hr Troponin T Hi Sens 6Hr Delta NT-Pro-B Natriuret Pep Total Protein 5.3 L Albumin 2.9 L Globulin 2.4 TSH Urine Color Urine Appearance Urine pH Ur Specific [place] Urine Protein Urine Glucose (UA) Urine Ketones Urine Blood Urine Nitrate Urine Bilirubin Urine Urobilinogen Ur Leukocyte Esterase Urine RBC Urine WBC Ur Squamous Epith Cells Ur Transition Epith Cell Amorphous Sediment Urine Bacteria Nasal/Oral COVID-19 PCR Blood Type Rho(D) Type Antibody Screen Crossmatch Micro: Microbiology 09/02/21 13:55 Urine Culture - Final Urine,Clean Catch Klebsiella pneumoniae 09/02/21 14:02 Blood Culture - Preliminary Blood NEGATIVE TO DATE 09/02/21 14:00 Blood Culture - Preliminary Blood NEGATIVE TO DATE Cardiac Studies: No Data to Display
[2021-09-04] MEDS: vancomycin 1,000 MG in sodium chloride 0.9% 250 ML 250 MG IV (14:55)
[2021-09-04] MEDS: vancomycin 1,000 MG SDV 1000 MG IRRIGATION (16:24)
[2021-09-04] MEDS: vancomycin 1,000 MG SDV 1000 MG XX (16:25)
--- NOTE | 2021-09-04 17:20 | PM.PN ---
Subjective Subjective: Interval history: Patient was seen early this morning, before her surgery, did have episodes of confusion overnight,, she is alert to person, to place, not to time, she is much more alert and awake, she is quite happy with more of her jaw mobility, she has less jaw pain, she is able to eat a soft diet yesterday, no oral pain, no tongue pain, continues to have left hip pain, no fevers overnight, no shortness of breath, pain is well controlled, daughter at bedside Vitals/I&O/Wt Last Vital Signs Temp 98.5 F 09/04/21 12:00 Pulse 79 09/04/21 12:00 Resp 18 09/04/21 12:00 BP 183/87 09/04/21 12:00 Pulse Ox 96 09/04/21 12:00 09/04/21 09/04/21 09/04/21 06:59 14:59 22:59 Intake Total 50 / 810 110 / 110 Output Total 300 / 750 650 / 650 Balance -250 / 60 -650 / -650 110 / -540 Weight last 48 hrs Weight 51.71 kg Physical Exam Const: COMMON NORMALS: no acute distress GENERAL APPEARANCE: cooperative ORIENTATION/CONSCIOUSNESS: Yes awake, Yes oriented to person and Yes oriented to place; not oriented to time Neck/C-Spine: OTHER: Neck, multiple bandages, clean and dry, Resp: COMMON NORMALS: normal respiratory effort, No retractions, No use of accessory muscles and clear to auscultation bilaterally AUSCULTATION: clear to auscultation bilaterally GI: COMMON NORMALS: Normal to inspection, nondistended, normoactive bowel sounds present, Soft to palpation and non-tender PALPATION: Yes Soft to palpation Back/Pelvis: OTHER: Left hip, surgical oleksandr in place from prior surgery Neuro: SENSORIUM/ORIENTATION: Yes oriented to person, Yes oriented to place and No oriented to time Urinary Catheter Management^: Warern: Cath Placed During This Visit: yes Urinary Catheter Date of Insertion: 09/02/21 Data : 09/04/21 05:00 09/04/21 05:00 Micro: Microbiology 09/02/21 13:55 Urine Culture - Final Urine,Clean Catch Klebsiella pneumoniae 09/02/21 14:02 Blood Culture - Preliminary Blood NEGATIVE TO DATE 09/02/21 14:00 Blood Culture - Preliminary Blood NEGATIVE TO DATE A&P Assessment and plan (1) Periprosthetic fracture around internal prosthetic hip joint: Sustained after mechanical fall Orthopedics consult, surgical intervention today Pain control with as needed morphine We will try to avoid excess opiates due to lethargy. Status: Acute (2) TMJ dislocation: Reduced in the ER earlier today. Status: Acute (3) UTI (urinary tract infection): UA with 1+ leukocyte Estrace, multiple WBCs, 4+ bacteria on empiric ceftriaxone 1 g IV every 24 hours for treatment. Status: Acute (4) Dementia: Status: Acute (5) Acute anemia: Hemoglobin down up to 9.4, status post 1 unit PRBC Status: Acute Additional A&P Information DVT prophylaxis: Switch to heparin Full code Attestations Medical Necessity Statement*: Patient requires hospitalization for periprosthetic hip fracture Coding Level of Care Code Acute Disability Coordinator for g Fwd Diagnoses Periprosthetic fracture around internal prosthetic hip joint M97.8XXA; Z96.649 TMJ dislocation S03.00XA UTI (urinary tract infection) N39.0 Dementia F03.90 Acute anemia D64.9
--- NOTE | 2021-09-04 17:45 | PC.NURSE ---
Family Notified Of Patient's Status Via Phone.
--- NOTE | 2021-09-04 18:56 | PC.NURSE ---
Patient is still in surgery at this time. Reported to on coming shift.
--- NOTE | 2021-09-04 19:57 | XRR_ITS ---
PROCEDURE INFORMATION: Exam: XR Right Hip Exam date and time: 09/04/2021 7:57 PM Age: 81 years old Clinical indication: Injury or trauma; Fall; Fracture of pelvis & hip; Right; Not specified; Neck of femur, base; Prior surgery; Surgery date: Post-operative (0-2 days); Additional info: Revision right hip arthroplasty, long film for lung prosthesis TECHNIQUE: Imaging protocol: XR Right hip. Views: 1 view hip with pelvis when performed. COMPARISON: CT chest abd pel wo con 09/02/2021 2:18 PM FINDINGS: Bones/joints: Right hip arthroplasty revision. The subtrochanteric femur fracture has been reduced with cerclage wires. Soft tissues: Skin oleksandr. XR/XR hip RT 2-3V wo/w pel* [id number] IMPRESSION: 1. Right hip arthroplasty revision and fracture fixation. Radiation Dose CTDIVOL = (mGy): DLP = (mGy-cm)
--- NOTE | 2021-09-04 19:57 | XRR_ITS ---
PROCEDURE INFORMATION: Exam: XR Pelvis Exam date and time: 09/04/2021 7:57 PM Age: 81 years old Clinical indication: Injury or trauma; Fall; Fracture of pelvis & hip; Right; Not specified; Neck of femur, base; Prior surgery; Surgery date: Post-operative (0-2 days); Additional info: Revision right hip surgery, low ap pelvis TECHNIQUE: Imaging protocol: XR pelvis. Views: 1 or 2 view. COMPARISON: CT chest abd pel wo con 09/02/2021 2:18 PM FINDINGS: Tubes, catheters and devices: Right hip arthroplasty revision with cerclage wires. The subtrochanteric femur fracture is reduced. The hip joints are intact. Bones/joints: See Tubes, catheters and devices finding. Soft tissues: Unremarkable. Gastrointestinal tract: Postsurgical changes with gas in the right hip soft tissues. XR/XR pelvis 1-2V* [id number] IMPRESSION: 1. Right hip arthroplasty revision and fracture fixation. Radiation Dose CTDIVOL = (mGy): DLP = (mGy-cm)
[2021-09-04] MEDS: fentaNYL 50 mcg/mL INJ 2mL IVP (20:03)
--- NOTE | 2021-09-04 20:04 | PM.OP ---
Operative Report Date of procedure: September 04, 2021 Pre-op Diagnosis: Right periprosthetic hip fracture Post-op diagnosis: same Post-op Findings: Comminuted displaced proximal femur and shaft fracture with subsided hip prosthesis secondary to fracture Procedure Done: Right revision hip arthroplasty with open reduction internal fixation right proximal femur fracture Implants: The [place] [employer] Modular total hip system with the following components: A size 17 mm x 155 mm femoral stem with a 23 mm +0 V taper neck and calcar a +0 mm offset femoral head with a 28 mm outer diameter and a universal bipolar component size 45 mm outer diameter and 28 mm inner diameter. Fracture was stabilized with [employer] 2.0 mm cables x3 Specimens removed/disposition: Cultures, explant disposed of Pathology: none sent Surgeon: Cathy Ortiz Piano Regulator Inspector: [facility] operating room Anesthesia: Other (MAC with spinal converted to LMA general, ASA 3) Estimated blood loss (mL): 700 IV fluids (mL): 1,200 IV fluids: 350 mL packed red blood cells and 250 mL albumin in addition to crystalloid as above Urine output (mL): 300 Complications: None Findings: Comminuted proximal femur and femoral shaft fracture with femoral stem subsidence. Postsurgical stability 70 degrees of internal rotation and 30 degrees of adduction. The patient was also stable with the leg laying on top of the other leg. Condition: stable Disposition: PACU (Then to floor for postoperative rehabilitation) Brief History: This 81-year-old woman was a patient of Dr. Perdue when she underwent a right bipolar hip arthroplasty for a subcapital hip fracture. [facility], and she had at least 2 maybe 3 falls at [facility] per the family. Upon presentation to the emergency department, the patient was found to have a dislocated TMJ as well as a comminuted displaced periprosthetic fracture. Patient was admitted and I was asked to see her for revision hip arthroplasty. Procedure: Patient was brought to the operating theater. She was transferred to the operating room table and a spinal anesthetic was placed. Subsequent to this, the patient did require conversion to a general anesthesia with LMA, ASA 3. Following administration of adequate anesthesia, the patient was placed in full lateral position and held in position with a pegboard. The patient's right lower extremity was then prepped and draped in usual fashion utilizing DuraPrep. It was draped free. Following prepping and draping a surgical pause was performed. At the time of surgical pause, we identified the site and side of surgery. We also identified the patient and preoperative surgical markings. Confirmation was made of equipment availability. Additionally, the patient's preoperative IV antibiotic, vancomycin 1 g, was confirmed as being given in a timely fashion and being the appropriate antibiotic. TXA was also given preoperatively. Following the surgical pause, an incision was made in the location of the previous incision from approximately 2 weeks ago. This incision was extended proximally and distally as necessary to allow access to the hip and fracture. Dissection continued through skin and soft tissues using a scalpel and hemostasis was obtained using electrocautery. The tensor fascia crystal was identified and incised longitudinally. Subcutaneous sutures were also removed. Sciatic nerve was identified and protected throughout the surgical procedure. A Charnley U retractor was placed after the tensor fascia crystal had been incised longitudinally. The patient has had a previous anterior lateral approach, however, secondary to the type of prosthesis being placed, we had to convert to a posterior approach. The fracture caused exposure to be quite complex in that we were unable to manipulate the hip. Upon evaluation, along with fracture line, the prosthesis was noted to be very impacted proximally and was not easily removed. The hip was internally rotated utilizing retractors, and the piriformis muscle was identified and tagged. Piriformis muscle along with the remaining short external rotators were then incised from the posterior aspect of the hip joint. These were retracted posteriorly. The capsule was entered in a T-type fashion with the edges being tagged, and subsequently the hip was dislocated with difficulty. We were able to remove the previous bipolar head and femoral head. This left the stem in position. We were unable to remove the stem as it was impacted into the femoral shaft. This required opening at the fracture site and use of osteotomes to remove fibrous ingrowth from around the stem. Once this was accomplished, we accessed the proximal aspect of the femur. We were eventually able to place a femoral extractor in position. The femoral prosthesis was then extracted. The femur was evaluated. Once soft tissue had been cleared from the superior aspect of the femoral stem, there was noted to be a significant calcar split, and the greater trochanter was split as well. There was a long oblique fracture extending into the proximal femoral shaft. We were able to remove the stem with no propagation of the fracture. We then evaluated the proximal femur and there was comminution in the area. Further evaluation of the acetabulum demonstrated retained labrum posteriorly and this was excised without difficulty. Attention was directed to the fracture. This required debridement using rongeurs and osteotomes. After fibrous tissue had been cleared from the area with some difficulty and manipulation, we were able to reduce the fracture essentially anatomically. Once the fracture was reduced anatomically it was held with a clamp and this was subsequently converted to a [place] style clamp. Care was taken to assure that we had essential anatomic reduction of the fracture. Once this was determined, 3 [place] cables were placed around the femur. We used the [employer] system that allowed for the cables to be held in a tightened position without clamping so that we could adjust later. Once the cables were in position, the femur was more easy to manipulate. We were then able to bring the proximal femur up out of the wound and prepare for the Confucianism Modular femoral stem. Attention was redirected to the proximal femur. A canal finder was placed followed by the proximal reamer to lateralize. We began reaming for the distal aspect of the Confucianism Modular femoral stem. This was a straight stem. We reamed to allow for a size 17 mm stem. Proximally, reaming was accomplished to allow for a calcar replacement of 23 mm. This was a +10 height. Soft tissues were noted to be quite tight, and we used a +10 height feeling that we would not be able to place the full construct of the hip stem if we did not see it slightly further than the standard depth. With the distal femoral stem in position and the 23 mm +0 height calcar and neck, a reduction was then accomplished with a 45 mm universal head component and a -4 mm femoral head. We attempted initially to use the +0 femoral head, but we were unable to reduce the construct. This was felt to be the appropriate construct. Therefore, trial components were removed after the hip was dislocated. Proximal calcar component was placed in appropriate rotation. It was impacted into position. The screw was then torqued to 180. Onto this, we placed a -4 mm femoral head with a bipolar head component size 45 to match what was removed. At this time, with all components in appropriate position, the hip was reduced. With a -4 femoral head in position, the hip was noted to be slightly tight, but when we adducted the hip, it wanted to dislocate. Secondary to this, we elected to proceed with a +0 mm femoral head and with this in place, we had the above stabilities, and at that time, we felt that we had restored leg lengths. We also felt that we had excellent stability noted above. Following reduction of the prosthesis once again, we confirmed the stability of the hip. Leg lengths were also felt to be satisfactory. Being satisfied with the prosthesis, attention was directed to closure. Closure was accomplished with 0 Vicryl in the capsular tissues. Piriformis was reattached with 0 Vicryl as well. Tensor fascia crystal was closed with 0 Vicryl in an interrupted fashion. The subcutaneous tissues were closed with 2-0 Monocryl. Vancomycin powder and a Gelfoam thrombin mixture was placed into the wound as well. The skin was closed with skin oleksandr followed by Deirdre and Alejandraite The patient was placed in an abduction pillow. She was returned the Recovery Room in a satisfactory condition and will be discharged to the floor for postoperative rehabilitation and pain management. There were no complications. Associated Problem List Diagnoses (1) Periprosthetic fracture around internal prosthetic hip joint: Qualifiers: Encounter type: initial encounter Laterality: right Qualified Code(s): M97.01XA - Periprosthetic fracture around internal prosthetic right hip joint, initial encounter
--- NOTE | 2021-09-04 20:26 | PC.NURSE ---
Transfer Note Patient transferred to [ROOM 266-1] from [PACU] via [STRECHER]. Handoff received from [YOVANI REED]. Patient oriented to PERSON/PLACE and equipment. Covering service notified. Orders reviewed and will continue to monitor. Family and/or roofing sales representative notified.
[2021-09-04] MEDS: cefTRIAXone 1,000 MG in sodium chloride 0.9% (plus) 50 ML 100 MG IV (21:11)
[2021-09-04] MEDS: atorvastatin 40 mg Tablet PO (21:12)
[2021-09-04] MEDS: chlorhexidine gluconate 0.12% Btl 473 mL 30 ML MUCOUS MEM (21:12)
[2021-09-04] MEDS: sodium chloride 0.9% (100 ml) 100 ML 10 ML (22:52)
[2021-09-05] VITALS (9 sets, daily range): BP systolic 80–149; BP diastolic 50–86; PULSE 70–104; RESP 16–17; TEMP 36.6–37.6; O2SAT 95–98
[2021-09-05 03:48] LABS: Basophils % 0.4 %; Eosinophils # 0.1 10^3/uL (0.0-0.8); Eosinophils % 0.9 %; Hematocrit 34.4 % (37.0-47.0); Hemoglobin 11.6 g/dL (11.5-15.3); Lymphocytes # 0.6 10^3/uL (0.8-4.8); Lymphocytes % 6.9 %; Mean Corpuscular HGB Conc 33.7 g/dL (30.0-36.0); Mean Corpuscular Hemoglobin 30.2 pg (28.0-34.0); Mean Corpuscular Volume 89.6 fl (81-99); Monocytes # 0.8 10^3/uL (0.2-0.9); Monocytes % 8.5 %; Neutrophils # 7.37 10^3/uL (1.8-7.7); Nucleated Red Blood Cells % 0 %; Platelet Count 225 10^3/cmm (130-400); Red Blood Count 3.84 10^6/uL (4.1-5.3); Red Cell Distribution Width 13.2 % (12.1-15.1); White Blood Count 8.9 10^3/uL (4.0-10.0)
[2021-09-05 04:18] LABS: Alanine Aminotransferase 12 U/L (0-33); Albumin Level 2.8 g/dL (3.5-5.2); Alkaline Phosphatase 83 IU/L (35-105); Aspartate Amino Transferase 26 U/L (0-32); Blood Urea Nitrogen 23 mg/dL (8-23); Calcium 8.8 mg/dL (8.5-10.5); Carbon Dioxide 22 mmol/L (22-29); Chloride 103 mmol/L (98-107); Creatinine Clr Calc Pharmacy 49.4051; Globulin 2.2 g/dL (1.3-4.6); Glucose 119 mg/dL (65-115); Magnesium 1.9 mg/dL (1.7-2.3); Osmolality Calculated 283 mOsm/kg (285-295); Phosphorus 3.5 mg/dL (2.5-4.5); Sodium 134 mmol/L (136-145); Total Bilirubin 1.9 mg/dL (0.15-1.2)
--- NOTE | 2021-09-05 04:26 | PC.NURSE ---
bladder scan resulting 27ml/0ml/0ml.
--- NOTE | 2021-09-05 08:25 | PC.SOCIAL ---
Pg 2 IMM Explained to pt's daughter Leti on Pg 2 IMM. No questions voiced. Provided pt a copy Initialed, dated, & timed a copy & placed in chart.
[2021-09-05] MEDS: enoxaparin 30 mg/0.3 mL Syringe SUBCUT (08:32)
[2021-09-05] MEDS: ALPRAZolam 0.5 mg Tablet PO (08:49)
[2021-09-05] MEDS: pantoprazole DR 40 mg Tablet PO (08:50)
--- NOTE | 2021-09-05 09:05 | ANE.PACU2 ---
Inpatient post-anesthesia follow up: Airway intact: Yes Vital signs: Temperature 98.2 F Pulse Rate [Monito r] 79 Pulse Rate 81 Respiratory Rate 16 Blood Pressure [Ri ght Arm] 110/67 Blood Pressure 137/83 Pulse Oximetry 96 Oxygen Delivery Me thod [Rate & Room Air Delivery Changed T o] Oxygen Delivery Me thod Room Air Oxygen Flow Rate 6 Fraction of Inspir ed Oxygen Hydration adequate: Yes Nausea and vomiting: No Pain level: 3 Mental status: Baseline
--- NOTE | 2021-09-05 11:25 | PC.OT ---
OT EVALUATION ATTEMPTED. PATIENT IS SLEEPING SOUNDLY AND DOES NOT AWAKEN AT THIS TIME. WILL ATTEMPT AGAIN LATER.
--- NOTE | 2021-09-05 11:49 | P.PN_ITS ---
Subjective Subjective: Interval history: Patient was seen this morning, she sitting up in a chair, alert to person, to place, not to time, she has some pain complaints in her hip, according to nursing staff, she spit out all her morning medications, Vitals/I&O/Wt Last Vital Signs Temp 98.2 F 09/05/21 07:47 Pulse 81 09/05/21 07:47 Resp 16 09/05/21 07:47 BP 137/83 09/05/21 07:47 Pulse Ox 96 09/05/21 07:47 09/04/21 09/05/21 09/05/21 22:59 06:59 14:59 Intake Total 760 / 860 328 / 1188 1340 / 1340 Output Total 1500 / 2150 250 / 2400 Balance -740 / -1290 78 / -1212 1340 / 1340 Physical Exam Const: COMMON NORMALS: no acute distress ORIENTATION/CONSCIOUSNESS: Yes awake, Yes oriented to person and Yes oriented to place; not oriented to time Neck/C-Spine: OTHER: Neck, multiple bandages, clean and dry, Resp: COMMON NORMALS: normal respiratory effort, No retractions, No use of accessory muscles and clear to auscultation bilaterally AUSCULTATION: clear to auscultation bilaterally Cardio: COMMON NORMALS: regular rate, regular rhythm, S1 normal heart sound present and S2 normal heart sound present RATE: regular rate RHYTHM: regular rhythm HEART SOUNDS: S1 normal heart sound present and S2 normal heart sound present GI: COMMON NORMALS: Normal to inspection, nondistended, normoactive bowel sounds present, Soft to palpation and non-tender PALPATION: Yes Soft to palpation Extremity: COMMON NORMALS: no pedal edema Neuro: SENSORIUM/ORIENTATION: Yes oriented to person, Yes oriented to place and No oriented to time Urinary Catheter Management^: Warren: Cath Placed During This Visit: yes, but has since been removed by the nurse Reason for Continuing Indwelling Catheter: Perioperative Use in Selected Surgeries Urinary Catheter Date of Insertion: 09/02/21 Date Urinary Catheter Removed: 09/05/21 Time Urinary Catheter Discontinued: 06:52 Data : 09/05/21 03:39 09/05/21 03:39 Micro: Microbiology 09/04/21 16:00 Gram Stain - Final Synovial Fluid 09/02/21 13:55 Urine Culture - Final Urine,Clean Catch Klebsiella pneumoniae A&P Assessment and plan (1) Periprosthetic fracture around internal prosthetic hip joint: Sustained after mechanical fall Orthopedics consult, status post Right revision hip arthroplasty with open reduction internal fixation right proximal femur fracture Pain control with as needed morphine We will try to avoid excess opiates due to lethargy. PT OT Status: Acute (2) TMJ dislocation: Reduced in the ER earlier today. Status: Acute (3) UTI (urinary tract infection): UA with 1+ leukocyte Estrace, multiple WBCs, 4+ bacteria Urine culture showing Klebsiella pneumoniae sensitive to Rocephin, can discharge on cefdinir on empiric ceftriaxone 1 g IV every 24 hours for treatment. Status: Acute (4) Dementia: Status: Acute (5) Acute anemia: Hemoglobin down up to 11.6, status post 1 unit PRBC Status: Acute Additional A&P Information DVT prophylaxis: Switch to heparin Full code Attestations Medical Necessity Statement*: Patient requires hospitalization for acute anemia, hip fracture, status post surgical intervention, Coding Level of Care Code Acute Financial Services Agent for Mitchell Bishop Diagnoses Periprosthetic fracture around internal prosthetic hip joint M97.8XXA; Z96.649 TMJ dislocation S03.00XA UTI (urinary tract infection) N39.0 Dementia F03.90 Acute anemia D64.9
--- NOTE | 2021-09-05 13:52 | PC.OT ---
OT EVALUATION ATTEMPTED; PATIENT CONTINUES TO SLEEP SOUNDLY. DAUGHTER PRESENT IN ROOM AND VERBALIZES UNDERSTANDING OF INABILITY TO COMPLETE EVALUATION. WILL ATTEMPT AGAIN TOMORROW.
--- NOTE | 2021-09-05 16:51 | PM.PN ---
Subjective Subjective: Interval history: Patient was seen this afternoon, and she sitting up in a chair. Her daughters are in the room with her. She has been quite sleepy since they arrived just shortly before I came to see the patient. Previously, she has some pain complaints in her hip, and according to nursing staff, she spit out all her morning medications, Vitals/I&O/Wt Last Vital Signs Temp 99.6 F 09/05/21 15:17 Pulse 104 H 09/05/21 15:17 Resp 16 09/05/21 15:17 BP 99/67 09/05/21 15:17 Pulse Ox 95 09/05/21 15:17 09/05/21 09/05/21 09/05/21 06:59 14:59 22:59 Intake Total 328 / 1188 1340 / 1340 Output Total 250 / 2400 Balance 78 / -1212 1340 / 1340 Physical Exam Const: COMMON NORMALS: no acute distress and average body habitus GENERAL APPEARANCE: comfortable ORIENTATION/CONSCIOUSNESS: Yes awake HENMT: COMMON NORMALS: normocephalic HEAD & SCALP: normocephalic FACE & SINUS: other (ecchymosis secondary to fall) MOUTH: other (TMJ Dislocation remains reduced) Eye: GENERAL EYE: appearance normal, both eyes and all related structures Chest: COMMONS NORMALS: normal inspection of the chest Resp: COMMON NORMALS: normal respiratory effort EFFORT & INSPECTION: Yes able to speak in complete sentences and Yes symmetric chest movement Extremity: RIGHT LOWER EXTREMITY: Yes hip joint (No significant swelling or ecchymosis.) Right hip: Yes inspection (Dressing is dry and intact.), Yes palpation (Tender to palpation.), Yes ROM (Not evaluated.) and Yes neurovascular exam (Intact) Psych: APPEARANCE: Yes grossly normal ATTITUDE: Yes calm ATTENTION/CONCENTRATION: Yes attention grossly intact Skin: COMMON NORMALS: no rashes or lesions noted GENERAL SKIN EXAM: no rashes or lesions noted Urinary Catheter Management^: Warren: Cath Placed During This Visit: yes, but has since been removed by the nurse Reason for Continuing Indwelling Catheter: Perioperative Use in Selected Surgeries Urinary Catheter Date of Insertion: 09/02/21 Date Urinary Catheter Removed: 09/05/21 Time Urinary Catheter Discontinued: 06:52 Data : 09/05/21 03:39 09/05/21 03:39 Micro: Microbiology 09/04/21 16:00 Gram Stain - Final Synovial Fluid 09/02/21 13:55 Urine Culture - Final Urine,Clean Catch Klebsiella pneumoniae A&P Assessment and plan (1) Periprosthetic fracture around internal prosthetic hip joint: Patient underwent revision hip arthroplasty for the above problem. Today, she appears stable. She is sleepy in the room, and complained of pain earlier. Her dementia certainly will interfere with her rehabilitation. She is on posterior hip precautions. She will ambulate with physical therapy as tolerated. She is up in the chair at the time she is seen. Status: Acute Qualifiers: Encounter type: initial encounter Laterality: right Qualified Code(s): M97.01XA - Periprosthetic fracture around internal prosthetic right hip joint, initial encounter Attestations Medical Necessity Statement*: Continued care needed after periprosthetic hip fracture. Coding Level of Care Code Acute Repairer Finished Metal for Mitchell Bishop Diagnoses Periprosthetic fracture around internal prosthetic hip joint M97.01XA Encounter type: initial encounter Laterality: right
[2021-09-05] MEDS: vancomycin 1,000 MG in sodium chloride 0.9% 250 ML 250 MG IV (17:20)
[2021-09-05] MEDS: sennosides-docusate Tablet 2 TAB PO (17:57)
[2021-09-05] MEDS: iron polysaccharide complex 150 mg Capsule PO (17:57)
[2021-09-05] MEDS: sodium chloride 0.9% 1,000 ML 100 ML IV ×2 (18:00→21:41)
[2021-09-05] MEDS: atorvastatin 40 mg Tablet PO (19:37)
[2021-09-05 19:42] LABS: Basophils # 0.1 10^3/uL (0.0-0.1); Basophils % 0.5 %; Eosinophils # 0.1 10^3/uL (0.0-0.8); Eosinophils % 1.2 %; Hematocrit 33.9 % (37.0-47.0); Lymphocytes # 0.8 10^3/uL (0.8-4.8); Lymphocytes % 8.8 %; Mean Corpuscular HGB Conc 32.4 g/dL (30.0-36.0); Mean Corpuscular Hemoglobin 29.9 pg (28.0-34.0); Mean Corpuscular Volume 92.1 fl (81-99); Mean Platelet Volume 9.7 fL (7.4-10.4); Monocytes % 10.4 %; Neutrophils % 78.6 %; Nucleated Red Blood Cells % 0 %; Platelet Count 222 10^3/cmm (130-400); Red Blood Count 3.68 10^6/uL (4.1-5.3); White Blood Count 9.4 10^3/uL (4.0-10.0)
[2021-09-05 20:07] LABS: Alanine Aminotransferase 15 U/L (0-33); Albumin Level 2.7 g/dL (3.5-5.2); Alkaline Phosphatase 81 IU/L (35-105); Anion Gap 15.1 (5-19); Aspartate Amino Transferase 37 U/L (0-32); Blood Urea Nitrogen 31 mg/dL (8-23); Calcium 8.2 mg/dL (8.5-10.5); Carbon Dioxide 20 mmol/L (22-29); Chloride 105 mmol/L (98-107); Globulin 2.2 g/dL (1.3-4.6); Glucose 140 mg/dL (65-115); Osmolality Calculated 291 mOsm/kg (285-295); Potassium 4.1 mmol/L (3.5-5.1); Sodium 136 mmol/L (136-145); Total Bilirubin 0.9 mg/dL (0.15-1.2); Total Protein 4.9 g/dL (6.6-8.7)
[2021-09-05 20:11] LABS: Creatine Phosphokinase 1438 U/L (26-192)
--- NOTE | 2021-09-05 20:16 | PC.NURSE ---
Dr. Cunningham notified of pt critical CK of 1438. No orders received at this time.
[2021-09-05] MEDS: acetaminophen 1,000 MG/100 ML PIGGYBACK 400 MG IV (21:31)
[2021-09-05] MEDS: chlorhexidine gluconate 0.12% Btl 473 mL 30 ML MUCOUS MEM (21:31)
[2021-09-05] MEDS: cefTRIAXone 1,000 MG in sodium chloride 0.9% (plus) 50 ML 100 MG IV (21:42)
[2021-09-06] VITALS (8 sets, daily range): BP systolic 114–128; BP diastolic 63–83; PULSE 67–84; RESP 16–18; TEMP 36.7–36.9; O2SAT 93–98
--- NOTE | 2021-09-06 03:00 | PC.NURSE ---
bladder scan performed, resulting . brief dry at this time. fluids infusing
[2021-09-06 03:38] LABS: Basophils # 0.1 10^3/uL (0.0-0.1); Basophils % 0.8 %; Eosinophils # 0.3 10^3/uL (0.0-0.8); Eosinophils % 3.9 %; Hematocrit 31.5 % (37.0-47.0); Hemoglobin 10.1 g/dL (11.5-15.3); Lymphocytes # 0.9 10^3/uL (0.8-4.8); Lymphocytes % 11.6 %; Mean Corpuscular HGB Conc 32.1 g/dL (30.0-36.0); Mean Corpuscular Hemoglobin 29.9 pg (28.0-34.0); Mean Corpuscular Volume 93.2 fl (81-99); Mean Platelet Volume 9.6 fL (7.4-10.4); Monocytes # 0.9 10^3/uL (0.2-0.9); Monocytes % 11.6 %; Neutrophils # 5.73 10^3/uL (1.8-7.7); Neutrophils % 71.7 %; Nucleated Red Blood Cells % 0 %; Platelet Count 206 10^3/cmm (130-400); Red Blood Count 3.38 10^6/uL (4.1-5.3); Red Cell Distribution Width 14.1 % (12.1-15.1)
[2021-09-06 04:03] LABS: Alanine Aminotransferase 19 U/L (0-33); Albumin Level 2.4 g/dL (3.5-5.2); Alkaline Phosphatase 81 IU/L (35-105); Aspartate Amino Transferase 49 U/L (0-32); Blood Urea Nitrogen 39 mg/dL (8-23); Carbon Dioxide 19 mmol/L (22-29); Chloride 105 mmol/L (98-107); Globulin 2.3 g/dL (1.3-4.6); Glucose 102 mg/dL (65-115); Magnesium 2.1 mg/dL (1.7-2.3); Osmolality Calculated 292 mOsm/kg (285-295); Phosphorus 4.1 mg/dL (2.5-4.5); Sodium 136 mmol/L (136-145); Total Bilirubin 0.9 mg/dL (0.15-1.2); Total Protein 4.7 g/dL (6.6-8.7)
[2021-09-06 04:07] LABS: Anion Gap 15.8 (5-19); Potassium 3.8 mmol/L (3.5-5.1)
[2021-09-06] MEDS: acetaminophen 1,000 MG/100 ML PIGGYBACK 400 MG IV ×2 (05:11→15:02)
[2021-09-06] MEDS: pantoprazole DR 40 mg Tablet PO (08:27)
[2021-09-06] MEDS: multivitamin therapeutic Tablet 1 TAB PO (08:27)
[2021-09-06] MEDS: sennosides-docusate Tablet 2 TAB PO ×2 (08:27→18:00)
[2021-09-06] MEDS: calcium carbonate 500 mg Chew Tablet 1000 MG PO (08:28)
[2021-09-06] MEDS: iron polysaccharide complex 150 mg Capsule PO ×2 (08:28→18:01)
[2021-09-06] MEDS: cholecalciferol (vitamin D3) 1,000 unit Tablet 1000 UNIT PO (08:28)
[2021-09-06] MEDS: chlorhexidine gluconate 0.12% Btl 473 mL 30 ML MUCOUS MEM ×2 (08:29→18:01)
[2021-09-06] MEDS: enoxaparin 30 mg/0.3 mL Syringe SUBCUT (08:29)
[2021-09-06] MEDS: sodium chloride 0.9% 1,000 ML 100 ML IV ×2 (08:36→22:25)
[2021-09-06 08:52] LABS: Anion Gap 13.9 (5-19); Blood Urea Nitrogen 37 mg/dL (8-23); Calcium 8.1 mg/dL (8.5-10.5); Carbon Dioxide 20 mmol/L (22-29); Chloride 106 mmol/L (98-107); Glucose 108 mg/dL (65-115); Osmolality Calculated 291 mOsm/kg (285-295); Potassium 3.9 mmol/L (3.5-5.1); Sodium 136 mmol/L (136-145)
[2021-09-06 09:12] LABS: Creatine Phosphokinase 2174 U/L (26-192)
[2021-09-06] MEDS: morphine 4 mg/mL SDV 1 mL 1 MG IVP ×2 (12:32→18:09)
--- NOTE | 2021-09-06 14:47 | P.PN_ITS ---
Subjective Subjective: Interval history: Patient was seen this morning, she sitting up in a chair, she is a bit drowsy this morning, no episodes of confusion overnight, she is drinking her coffee alert to person, not to place, not to time Vitals/I&O/Wt Last Vital Signs Temp 98.2 F 09/06/21 11:31 Pulse 78 09/06/21 11:31 Resp 18 09/06/21 12:32 BP 125/77 09/06/21 11:31 Pulse Ox 93 09/06/21 12:32 09/05/21 09/06/21 09/06/21 22:59 06:59 14:59 Intake Total 988.333 / 2328.333 200 / 2528.333 1150 / 1150 Output Total 0 / 0 Balance 988.333 / 2328.333 200 / 2528.333 1150 / 1150 Physical Exam Const: COMMON NORMALS: no acute distress ORIENTATION/CONSCIOUSNESS: Yes awake and Yes oriented to person; not oriented to place and not oriented to time Resp: COMMON NORMALS: normal respiratory effort, No retractions, No use of accessory muscles and clear to auscultation bilaterally AUSCULTATION: clear to auscultation bilaterally Cardio: COMMON NORMALS: regular rate, regular rhythm, S1 normal heart sound present and S2 normal heart sound present RATE: regular rate RHYTHM: regular rhythm HEART SOUNDS: S1 normal heart sound present and S2 normal heart sound present GI: COMMON NORMALS: Normal to inspection, nondistended, normoactive bowel sounds present and Soft to palpation PALPATION: Yes Soft to palpation Extremity: COMMON NORMALS: no pedal edema Neuro: SENSORIUM/ORIENTATION: Yes oriented to person, No oriented to place and No oriented to time Psych: COMMON NORMALS: mental status grossly normal Skin: NARRATIVE SKIN EXAM: Superficial bruising on bilateral necks Urinary Catheter Management^: Warren: Cath Placed During This Visit: yes, but has since been removed by the nurse Reason for Continuing Indwelling Catheter: Other Urinary Catheter Date of Insertion: 09/02/21 Date Urinary Catheter Removed: 09/05/21 Time Urinary Catheter Discontinued: 06:52 Data : 09/06/21 03:10 09/06/21 08:21 Micro: Microbiology 09/04/21 16:00 Gram Stain - Final Synovial Fluid Anaerobic Culture - Preliminary Body Fluid Culture - Preliminary A&P Assessment and plan (1) Periprosthetic fracture around internal prosthetic hip joint: Sustained after mechanical fall Orthopedics consult, status post Right revision hip arthroplasty with open reduction internal fixation right proximal femur fracture Pain control We will try to avoid excess opiates due to lethargy. PT OT Awaiting residential placement Hemoglobin 10.1 Status: Acute Qualifiers: Encounter type: initial encounter Laterality: right Qualified Code(s): M97.01XA - Periprosthetic fracture around internal prosthetic right hip joint, initial encounter (2) TMJ dislocation: Reduced in the ER earlier today. Status: Acute (3) UTI (urinary tract infection): UA with 1+ leukocyte Estrace, multiple WBCs, 4+ bacteria Urine culture showing Klebsiella pneumoniae sensitive to Rocephin on empiric ceftriaxone 1 g IV every 24 hours for treatment. Status: Acute (4) Dementia: Status: Acute (5) Acute anemia: Hemoglobin down up to 10.1, status post 1 unit PRBC Status: Acute (6) Rhabdomyolysis: Status: Acute (7) Acute kidney injury: -Creatinine 1.3, with evidence of rhabdo CPK 2174 -Continue gentle IV hydration Status: Acute Additional A&P Information DVT prophylaxis: Switch to heparin Full code Attestations Medical Necessity Statement*: Patient requires hospitalization for hip fracture, rhabdomyolysis, RAJESH Coding Level of Care Code Acute Preschool Teacher for cherelle Bishop Diagnoses Periprosthetic fracture around internal prosthetic hip joint M97.01XA Encounter type: initial encounter Laterality: right TMJ dislocation S03.00XA UTI (urinary tract infection) N39.0 Dementia F03.90 Acute anemia D64.9 Rhabdomyolysis M62.82 Acute kidney injury N17.9
--- NOTE | 2021-09-06 19:42 | P.PN_ITS ---
Subjective Subjective: Interval history: Patient is seen this evening. Her family is gone. She does appear confused. Vitals/I&O/Wt Last Vital Signs Temp 98.3 F 09/06/21 15:49 Pulse 74 09/06/21 15:49 Resp 16 09/06/21 18:09 BP 119/72 09/06/21 15:49 Pulse Ox 98 09/06/21 15:49 09/06/21 09/06/21 09/06/21 06:59 14:59 22:59 Intake Total 200 / 2528.333 1150 / 1150 220 / 1370 Balance 200 / 2528.333 1150 / 1150 220 / 1370 Physical Exam Const: COMMON NORMALS: no acute distress and average body habitus GENERAL APPEARANCE: comfortable ORIENTATION/CONSCIOUSNESS: Yes awake HENMT: COMMON NORMALS: normocephalic HEAD & SCALP: normocephalic FACE & SINUS: other (ecchymosis secondary to fall) MOUTH: other (TMJ Dislocation remains reduced) Eye: GENERAL EYE: appearance normal, both eyes and all related structures Chest: COMMONS NORMALS: normal inspection of the chest Resp: COMMON NORMALS: normal respiratory effort EFFORT & INSPECTION: Yes able to speak in complete sentences and Yes symmetric chest movement Extremity: RIGHT LOWER EXTREMITY: Yes hip joint (No significant swelling or ecchymosis) Right hip: Yes palpation (Nontender) and Yes neurovascular exam (Motor function intact distally) Psych: APPEARANCE: Yes grossly normal ATTITUDE: Yes calm ATTENTION/CONCENTRATION: Yes attention grossly intact Skin: COMMON NORMALS: no rashes or lesions noted GENERAL SKIN EXAM: no rashes or lesions noted Urinary Catheter Management^: Warren: Cath Placed During This Visit: yes, but has since been removed by the nurse Reason for Continuing Indwelling Catheter: Other Urinary Catheter Date of Insertion: 09/02/21 Date Urinary Catheter Removed: 09/05/21 Time Urinary Catheter Discontinued: 06:52 Data : 09/06/21 03:10 09/06/21 08:21 Micro: Microbiology 09/04/21 16:00 Gram Stain - Final Synovial Fluid Anaerobic Culture - Preliminary Body Fluid Culture - Preliminary A&P Assessment and plan (1) Periprosthetic fracture around internal prosthetic hip joint: Patient remains in hospital following revision prosthesis for periprosthetic hip fracture. She is working with physical therapy. We are awaiting placement. The patient will likely benefit from senior care at the time of discharge. Prior to being at [facility] for senior care following her original prosthesis, the patient was a resident at [facility]. Status: Acute Qualifiers: Encounter type: initial encounter Laterality: right Qualified Code(s): M97.01XA - Periprosthetic fracture around internal prosthetic right hip joint, initial encounter Attestations Medical Necessity Statement*: Ongoing postoperative rehabilitation. Coding Level of Care Code Acute Pole Cutter for Mitchell Bishop Diagnoses Periprosthetic fracture around internal prosthetic hip joint M97.01XA Encounter type: initial encounter Laterality: right
[2021-09-06] MEDS: cefTRIAXone 1,000 MG in sodium chloride 0.9% (plus) 50 ML 100 MG IV (22:24)
--- NOTE | 2021-09-06 22:40 | PC.NURSE ---
PATIENT CONFUSED AND WEEPING, PULLED OUT CATHETER. CATHETER WAS INTACT. NEW 22 GAUGE IV PLACED IN RIGHT WRIST, FLUSHED WELL, GOT BLOOD RETURN. IV HUA-GUARD PLACED DATED AND INITIALED.
[2021-09-07] VITALS: BP 108/55; PULSE 88; RESP 20; TEMP 36.4; O2SAT 98
--- NOTE | 2021-09-07 01:05 | PC.NURSE ---
PATIENT CONFUSED AND UNABLE TO REDIRECT, PULLED OUT IV CATHETER. PATIENT VISIBLY UPSET AND CRYING. THIS NURSE ATTEMPTED TO EDUCATE PATIENT ON WHY AN IV IS IMPORTANT AND NEEDED, PATIENT UNABLE TO RETAIN INFORMATION. PATIENT ASKED TO BE LEFT ALONE STATING I CANT DO THIS ANYMORE, PLEASE GO AWAY. PATIENT WAS COVERED UP, BED ALARM ACTIVATED, LIGHTS TURNED OFF. WILL CONTINUE FREQUENT ROUNDING FOR SAFETY AND WELL BEING OF PATIENT. HOSPITALIST NOTIFIED OF NO CURRENT IV ACCESS.
[2021-09-07 04:00] VITALS: BP 160/83; PULSE 73; RESP 17; TEMP 36.4; O2SAT 98
[2021-09-07 05:48] LABS: Basophils % 0.5 %; Eosinophils # 0.4 10^3/uL (0.0-0.8); Eosinophils % 5.8 %; Hematocrit 32.6 % (37.0-47.0); Hemoglobin 10.3 g/dL (11.5-15.3); Lymphocytes # 0.7 10^3/uL (0.8-4.8); Lymphocytes % 9.6 %; Mean Corpuscular HGB Conc 31.6 g/dL (30.0-36.0); Mean Corpuscular Hemoglobin 29.9 pg (28.0-34.0); Mean Corpuscular Volume 94.5 fl (81-99); Monocytes # 0.7 10^3/uL (0.2-0.9); Monocytes % 8.9 %; Neutrophils # 5.55 10^3/uL (1.8-7.7); Neutrophils % 74.9 %; Nucleated Red Blood Cells % 0 %; Platelet Count 219 10^3/cmm (130-400); Red Blood Count 3.45 10^6/uL (4.1-5.3); Red Cell Distribution Width 13.9 % (12.1-15.1); White Blood Count 7.4 10^3/uL (4.0-10.0)
[2021-09-07 06:15] LABS: Alanine Aminotransferase 23 U/L (0-33); Albumin Level 2.5 g/dL (3.5-5.2); Alkaline Phosphatase 119 IU/L (35-105); Anion Gap 13.4 (5-19); Aspartate Amino Transferase 47 U/L (0-32); Blood Urea Nitrogen 36 mg/dL (8-23); Calcium 8.5 mg/dL (8.5-10.5); Carbon Dioxide 20 mmol/L (22-29); Chloride 103 mmol/L (98-107); Globulin 2.7 g/dL (1.3-4.6); Glucose 91 mg/dL (65-115); Osmolality Calculated 284 mOsm/kg (285-295); Potassium 3.4 mmol/L (3.5-5.1); Sodium 133 mmol/L (136-145); Total Bilirubin 0.8 mg/dL (0.15-1.2); Total Protein 5.2 g/dL (6.6-8.7)
[2021-09-07 06:19] LABS: Creatine Phosphokinase 1097 U/L (26-192)
[2021-09-07 08:00] VITALS: BP 165/85; PULSE 74; RESP 17; TEMP 36.8; O2SAT 98
[2021-09-07] MEDS: sennosides-docusate Tablet 2 TAB PO (08:08)
[2021-09-07] MEDS: calcium carbonate 500 mg Chew Tablet 1000 MG PO (08:08)
[2021-09-07] MEDS: cholecalciferol (vitamin D3) 1,000 unit Tablet 1000 UNIT PO (08:08)
[2021-09-07] MEDS: enoxaparin 30 mg/0.3 mL Syringe SUBCUT (08:08)
[2021-09-07] MEDS: iron polysaccharide complex 150 mg Capsule PO (08:09)
[2021-09-07] MEDS: multivitamin therapeutic Tablet 1 TAB PO (08:09)
[2021-09-07] MEDS: chlorhexidine gluconate 0.12% Btl 473 mL 30 ML MUCOUS MEM (08:09)
[2021-09-07] MEDS: pantoprazole DR 40 mg Tablet PO (08:09)
--- NOTE | 2021-09-07 09:39 | PC.SOCIAL ---
IMM update IMM updated with patient. Verbalized an understanding. Copy Pg2 provided. Initialled,dated, timed, and placed in chart.
[2021-09-07 11:25] VITALS: BP 166/75; PULSE 71; RESP 19; TEMP 37; O2SAT 98
--- NOTE | 2021-09-07 11:39 | PM.DCS ---
Discharge Providers Date of Admission: 09/02/21 19:23 Date of Discharge: September 07, 2021 Attending Provider at Admission: Annie Cunningham MD Attending Provider at Discharge: Leeroy Lal MD Primary Care Provider: Lee Tyler DO Diagnoses at Discharge Discharge Diagnosis (1) Periprosthetic fracture around internal prosthetic hip joint: Status: Acute Qualifiers: Encounter type: initial encounter Laterality: right Qualified Code(s): M97.01XA - Periprosthetic fracture around internal prosthetic right hip joint, initial encounter Reason for Visit Reason for Visit: fall, poss bilat hip and jaw fx Hospital Course Hospital Course This is a 81-year-old female with a past medical history of dementia, recent hospitalization for fall with right femoral neck fracture who presents [facility] due to sustained fall with periprosthetic fracture around internal prosthetic hip joint, status post right revision hip arthroplasty with open reduction internal fixation by Dr. Ortiz. Will be discharged on Lovenox for DVT prophylaxis, [place] for pain control, PT OT. Given that patient has had a repeat fall, and her hip has had revision surgery, she will require close monitoring for repeat falls, instability. For UTI, she finished antibiotic treatment as inpatient TMJ dislocation, reduced in the emergency room Patient did develop anemia during her hospitalization, received 1 unit PRBC For her RAJESH secondary rhabdomyolysis, received IV hydration, discharge instructions to drink plenty of electrolyte balance fluids Physical Exam Const: COMMON NORMALS: no acute distress ORIENTATION/CONSCIOUSNESS: Yes awake, Yes oriented to person and Yes oriented to time; not oriented to place Neck/C-Spine: OTHER: Neck, superficial wounds, superficial bruising Resp: COMMON NORMALS: normal respiratory effort, No retractions, No use of accessory muscles and clear to auscultation bilaterally AUSCULTATION: clear to auscultation bilaterally Cardio: COMMON NORMALS: regular rate, regular rhythm, S1 normal heart sound present and S2 normal heart sound present RATE: regular rate RHYTHM: regular rhythm HEART SOUNDS: S1 normal heart sound present and S2 normal heart sound present GI: COMMON NORMALS: Normal to inspection, nondistended, normoactive bowel sounds present, Soft to palpation and non-tender PALPATION: Yes Soft to palpation Extremity: COMMON NORMALS: no pedal edema OTHER: In immobilizer Neuro: SENSORIUM/ORIENTATION: Yes oriented to person, No oriented to place and Yes oriented to time Urinary Catheter Management^: Warren: Cath Placed During This Visit: yes, but has since been removed by the nurse Reason for Continuing Indwelling Catheter: Other Urinary Catheter Date of Insertion: 09/02/21 Date Urinary Catheter Removed: 09/05/21 Time Urinary Catheter Discontinued: 06:52 Discharge Data Data Completed and Pending: Completed Studies During Hospitalization Category Date Time Status CT cervical spin wo con* [id number] Urge nt Cat Scan 09/02/21 13:[address] chest abd pel wo con Urgent Cat Scan 09/02/21 13:[address] facial bones w o con* [id number] Urgen t Cat Scan 09/02/21 13:[address] facial bones w o con* [id number] Urgen t Cat Scan 09/02/21 17:[address] head wo con* 7 0450 Urgent Cat Scan 09/02/21 13:05 Completed XR femur LT min 2 V* [id number] Stat Exams 09/02/21 13:05 Completed XR femur RT min 2 V* [id number] Stat Exams 09/02/21 13:05 Completed XR hip RT 2-3V wo /w pel* [id number] Rout ine Exams 09/04/21 19:57 Completed XR mandible <4V 7 0100 Stat Exams 09/02/21 16:59 Completed XR pelvis 1-2V* 7 2170 Routine Exams 09/04/21 19:57 Completed XR pelvis 1-2V* 7 2170 Stat Exams 09/02/21 13:05 Completed Pending at discharge Category Date Time Status Anaerobic Culture Routine Lab 09/04/21 16:00 Results Blood Culture Sta t Lab 09/02/21 14:02 Results Body Fluid Cultur e & GS Routine Lab 09/04/21 16:00 Results Comprehensive Met abolic Panel AM LA BS Lab 09/08/21 04:00 Ordered Comprehensive Met abolic Panel AM LA BS Lab 09/09/21 04:00 Ordered Creatine Phosphok inase AM LABS Lab 09/08/21 04:00 Ordered Creatine Phosphok inase AM LABS Lab 09/09/21 04:00 Ordered Labs from last 24 hours 09/07/21 09/07/21 05:37 05:37 WBC 7.4 RBC 3.45 L Hgb 10.3 L Hct 32.6 L MCV 94.5 MCH 29.9 MCHC 31.6 RDW 13.9 Plt Count 219 MPV 9.0 Neut % (Auto) 74.9 Lymph % (Auto) 9.6 [place] % (Auto) 8.9 Eos % (Auto) 5.8 Baso % (Auto) 0.5 Neut # (Auto) 5.55 Lymph # (Auto) 0.7 L [place] # (Auto) 0.7 Eos # (Auto) 0.4 Baso # (Auto) 0.0 Nucleated RBC % (a uto) 0 Nucleated RBCs # 0.0 Sodium 133 L Potassium 3.4 L Chloride 103 Carbon Dioxide 20 L Anion Gap 13.4 BUN 36 H Creatinine 1.1 H GFR Calculation Not Reportable Glucose 91 Calculated Osmolal ity 284 L Calcium 8.5 Total Bilirubin 0.8 AST 47 H ALT 23 Alkaline Phosphata se 119 H Creatine Kinase 1097 H* Total Protein 5.2 L Albumin 2.5 L Globulin 2.7 Vitals: Last Vital Signs Temp 98.6 F 09/07/21 11:25 Pulse 71 09/07/21 11:25 Resp 19 H 09/07/21 11:25 BP 166/75 09/07/21 11:25 Pulse Ox 98 09/07/21 11:25 Discharge Plan Discharge Patient Disposition: Xfer SNF Condition: Stable Prescriptions: New cholecalciferol (vitamin D3) 25 mcg (1,000 unit) Tablet 1,000 unit PO DAILY 30 Days Qty: 30 RF: 0 enoxaparin 30 mg/0.3 mL Syringe 30 mg SUBCUT Q24H 14 Days Qty: 4.2 RF: 0 Thera 400 mcg Tablet 1 tab PO DAILY 30 Days Qty: 30 RF: 0 Continued cetirizine [Zyrtec] 10 mg Tablet 10 mg PO DAILY PRN (Reason: Allergy Symptoms) RF: 0 aspirin [Adult Low Dose Aspirin] 81 mg tablet,delayed release (DR/EC) 81 mg PO DAILY Qty: 30 RF: 0 enoxaparin [Lovenox] 40 mg/0.4 mL syringe 40 mg SUBCUT DAILY Qty: 5.6 RF: 0 acetaminophen 325 mg Tablet 650 mg PO Q6H PRN (Reason: Pain) RF: 0 bisacodyl 10 mg Suppository 10 mg UT DAILY PRN (Reason: Constipation) RF: 0 atorvastatin 40 mg tablet 20 mg PO BEDTIME@20 RF: 0 alprazolam [Xanax] 0.5 mg Tablet 0.5 mg PO BID PRN (Reason: Anxiety) RF: 0 mineral oil Enema 118 ml UT DAILY PRN (Reason: Constipation) RF: 0 hydrocodone-acetaminophen 5-325 mg tablet 1 tab PO Q6H PRN (Reason: pain) 7 Days Qty: 28 RF: 0 Discontinued acetaminophen [Tylenol Extra Strength] 500 mg Tablet 500 mg PO BEDTIME@20 RF: 0 Discharge Orders: Discharge Order (Routine); Ordered 09/07/21 Ordered By: Leeroy Lal Referrals: Cathy Ortiz MD [Physician] - 1 week Discharge Diet: Regular Discharge Activity: Increase activity as tolerated, Limit activity as instructed, Use walker/crutches as instructed and As per PT/OT instructions Activity Restrictions/Additional Instructions: -Please recheck kidney function in 3 days -Continue wound care for superficial neck wounds -Pain control with hydrocodone -DVT prophylaxis Lovenox Discharge Attestations Time Spent in Discharge Care*: less than 30 min Quality Metrics Clinical Quality Measures During this hospital stay, did patient experience: None Coding Level of Care Code Acute [facility] note Diagnoses Periprosthetic fracture around internal prosthetic hip joint M97.01XA Encounter type: initial encounter Laterality: right
--- NOTE | 2021-09-07 11:41 | PC.OT ---
Evaluation was attempted on this patient. Patient became tearful and said, I just can't do what they want me to. She was unable to follow simple commands at this time. She requested that the evaluation be done tomorrow, 09/08/2021.
--- NOTE | 2021-09-07 13:31 | PM.PN ---
Subjective Subjective: Interval history: Patient is seen this noon time. She is up in a chair. She remains confused, but she is ready for discharge. Plans were discussed regarding discharge to long term, however, given the family's experience, they are reluctant to return her to any long term and prefer she return to her normal living Situation Which Is at [facility]. Vitals/I&O/Wt Last Vital Signs Temp 98.6 F 09/07/21 11:25 Pulse 71 09/07/21 11:25 Resp 19 H 09/07/21 11:25 BP 166/75 09/07/21 11:25 Pulse Ox 98 09/07/21 11:25 09/06/21 09/07/21 09/07/21 22:59 06:59 14:59 Intake Total 1470 / 2620 200 / 2820 Balance 1470 / 2620 200 / 2820 Physical Exam Const: COMMON NORMALS: no acute distress and average body habitus GENERAL APPEARANCE: comfortable ORIENTATION/CONSCIOUSNESS: Yes awake HENMT: COMMON NORMALS: normocephalic HEAD & SCALP: normocephalic FACE & SINUS: other (ecchymosis secondary to fall) MOUTH: other (TMJ Dislocation remains reduced) Eye: GENERAL EYE: appearance normal, both eyes and all related structures Chest: COMMONS NORMALS: normal inspection of the chest Resp: COMMON NORMALS: normal respiratory effort EFFORT & INSPECTION: Yes able to speak in complete sentences and Yes symmetric chest movement Extremity: RIGHT LOWER EXTREMITY: Yes hip joint Right hip: Yes inspection (No significant swelling or ecchymosis.), Yes palpation (Some tenderness.), Yes ROM (Anterior posterior hip precautions.) and Yes neurovascular exam (Intact distally. No evidence of DVT.) Psych: APPEARANCE: Yes grossly normal ATTITUDE: Yes calm ATTENTION/CONCENTRATION: Yes attention grossly intact Skin: COMMON NORMALS: no rashes or lesions noted GENERAL SKIN EXAM: no rashes or lesions noted Urinary Catheter Management^: Warren: Cath Placed During This Visit: yes, but has since been removed by the nurse Reason for Continuing Indwelling Catheter: Other Urinary Catheter Date of Insertion: 09/02/21 Date Urinary Catheter Removed: 09/05/21 Time Urinary Catheter Discontinued: 06:52 Data : 09/07/21 05:37 09/07/21 05:37 Micro: Microbiology 09/04/21 16:00 Gram Stain - Final Synovial Fluid Anaerobic Culture - Preliminary Body Fluid Culture - Preliminary A&P Assessment and plan (1) Periprosthetic fracture around internal prosthetic hip joint: Patient remains in hospital following revision prosthesis for periprosthetic hip fracture. She is working with physical therapy. We are awaiting placement. Although we discussed the patient benefiting from long term at the time of discharge, the family is reluctant as we have not found an accepting facility other than [place]. They do not wish to return there. Therefore, the patient is at an assisted living situation. They have agreed to accept her back into their care. She will be discharged there today. Status: Acute Qualifiers: Encounter type: initial encounter Laterality: right Qualified Code(s): M97.01XA - Periprosthetic fracture around internal prosthetic right hip joint, initial encounter Attestations Medical Necessity Statement*: Patient is ready for discharge to assisted living per family wishes. Coding Level of Care Code Acute [facility]mer for [facility] Diagnoses Periprosthetic fracture around internal prosthetic hip joint M97.01XA Encounter type: initial encounter Laterality: right
--- NOTE | 2021-09-11 11:32 | PC.SOCIAL ---
discharge follow up call made, spoke with pts nurse Ina and Alhaji Beltran. she reports pt has been combative the past couple of days. patient started working with therapy yesterday. nurse reports family is considering taking patient to [facility] due to patient needed around the clock care at this time. patients family has been staying with [facility] at [facility]. Geophysical Laboratory Director will make follow up appointment with dr. randall and let the facility know the date. facility is administering medications as prescribed. ina denies questions or concerns.
== END 2021-09-07 14:25 | disposition skilled nursing facility (03) | DRG 467 ==
LOC: ER 19:38 → MEDSURG 20:02
PROVIDERS: Specialist; Admitting Provider Student in an Organized Health Care Education/Training Program; Emergency Provider Emergency Medicine; PCP Family Medicine; Visit Provider Family Medicine
PROC: 0SR90J9 Replacement of Right Hip Joint with Synthetic Substitute, Cemented, Open Approach (ICD-10-PCS; principal; 2021-09-04 14:00)
DX: S72.351A Displaced comminuted fracture of shaft of right femur, initial encounter for closed fracture (principal); M97.01XA Periprosthetic fracture around internal prosthetic right hip joint, initial encounter; N39.0 Urinary tract infection, site not specified; M62.82 Rhabdomyolysis; N17.9 Acute kidney failure, unspecified; W19.XXXA Unspecified fall, initial encounter; Y92.129 Unspecified place in nursing home as the place of occurrence of the external cause; S03.03XA Dislocation of jaw, bilateral, initial encounter; F03.90 Unspecified dementia, unspecified severity, without behavioral disturbance, psychotic disturbance, mood disturbance, and anxiety; F41.9 Anxiety disorder, unspecified; E78.5 Hyperlipidemia, unspecified; I10 Essential (primary) hypertension; Z88.0 Allergy status to penicillin; Z88.2 Allergy status to sulfonamides; D64.9 Anemia, unspecified
CPT/HCPCS: 21480; 36415; 36416; 36430; 36600; 51702; 70100; 70450; 70486; 71250; 72125; 72170; 73502; 73552; 74176; 80048; 80053; 81001; 81003; 82550; 82803; 82962; 83605; 83735; 83880; 84100; 84443; 84484; 85014; 85018; 85025; 85610; 85730; 86850; 86900; 86920; 87040; 87070; 87075; 87077; 87086; 87186; 87205; 87635; 93005; 96361; 96372; 96374; 96375; 97110; 97162; 97530; 99285; C1713; C1776; J0696; J1650; J2250; J2270; J2704; J3010; J3370; J3490; J7030; J7040; J7050; P9016; P9041

== ENCOUNTER 2021-09-10 13:31 | Outpatient (CLI) | payer MEDICARE, OTHER, SELFPAY ==
[2021-09-10 15:45] LABS: Albumin Level 2.8 g/dL (3.5-5.2); Anion Gap 10.6 (5-19); Blood Urea Nitrogen 26 mg/dL (8-23); Calcium 8.6 mg/dL (8.5-10.5); Carbon Dioxide 25 mmol/L (22-29); Chloride 107 mmol/L (98-107); Glucose 93 mg/dL (65-115); Phosphorus 2.8 mg/dL (2.5-4.5); Potassium 3.6 mmol/L (3.5-5.1); Sodium 139 mmol/L (136-145)
== END 2021-09-10 13:32 | disposition home or self-care (01) ==
LOC: LAB 14:42
PROVIDERS: PCP Family Medicine; Visit Provider Internal Medicine Cardiovascular Disease
DX: N17.9 Acute kidney failure, unspecified (principal)
CPT/HCPCS: 80069

== ENCOUNTER 2021-09-15 08:04 | Emergency (ER) | payer OTHER, MEDICARE, SELFPAY ==
[2021-09-15] VITALS (8 sets, daily range): BP systolic 121–210; BP diastolic 80–118; PULSE 64–103; RESP 16–20; O2SAT 92–100; BMI 14.6
--- NOTE | 2021-09-15 08:18 | ED_ITS ---
HPI - General Adult General: Chief complaint: General Medical Stated complaint: DISLOCATED JAW Time Seen by Provider: 09/15/21 08:06 Source: patient and family Mode of arrival: ambulatory History of Present Illness: HPI narrative: 81-year-old female presents to emergency department family chief complaint of concerns of a mandible dislocation. Apparently this patient has had a history of this in the past in which she could spontaneously reduce it. Per family this is been out since yesterday. Patient has been seen in our facility for this complaint previously per family. Patient per family does have a known history of dementia. Patient has no prior trauma noted to the jaw per the family the patient has been able to reduce it previously honor roll with minimal intervention per the family the pa tient has had no recent trauma or injury reporting patient is able to guard her airway reports able to tolerate her saliva reporting no other associated symptoms. Associated symptoms: Deny chest pain, dyspnea, headache(s), malaise, nausea, rash, palpitations or vomiting Review of Systems General: Reports: 10 or more systems reviewed and unremarkable except in HPI and below Const: Denies: fever(s), chills, fatigue or malaise Eyes: Denies: change in vision or blurry vision ENMT: Reports: mouth pain, sinus pain and other Card: Denies: chest pain or palpitations Resp: Denies: dyspnea or productive cough GI: Denies: abdominal pain, nausea or vomiting : Denies: flank pain Musc: Denies: extremity pain or extremity swelling Skin/Breast: Denies: rash or pruritus Neuro: Denies: headache(s) Psych: Denies: anxiety or depression Art/Lymph: Denies: easy bleeding All/Imm: Denies: urticaria, throat swelling or facial swelling PFSH ED PFSH: Medical History Anxiety Dementia Hyperlipidemia Hypertension Hyponatremia Tremor Surgical History History of breast biopsy History of repair of rectocele History of vaginal hysterectomy Family History Other Hyperlipidemia Hypertension Social History Smoking and tobacco status: never smoked Alcohol intake: current Alcohol intake frequency: holidays/special occasions only Physical Exam Narrative: EXAM NARRATIVE: Patient appears in moderate distress due to what appears to be a jaw dislocation patient is able to guard secretions no stridor apparent or airway issues noted. Const: COMMON NORMALS: patient oriented x3 and healthy appearing; apparent distress GENERAL APPEARANCE: anxious; not in distress HENMT: COMMON NORMALS: normocephalic and atraumatic HEAD & SCALP: normocephalic and atraumatic Eye: COMMON NORMALS: Equal, round and reactive pupils present and EOMs intact bilaterally PUPIL: Yes Equal, round and reactive pupils present Neck/C-Spine: COMMON NORMALS: full ROM, supple and no JVD GENERAL: Yes normal visual inspection Lymph: LYMPHATIC: no lymphadenopathy noted Chest: COMMONS NORMALS: normal inspection of the chest and normal palpation of entire chest wall Resp: COMMON NORMALS: normal respiratory effort, No retractions and clear to auscultation bilaterally EFFORT & INSPECTION: Yes able to speak in complete sentences (Unable to speak at this time) and Yes symmetric chest movement AUSCULTATION: clear to auscultation bilaterally Cardio: COMMON NORMALS: no JVD, regular rate and regular rhythm RATE: regular rate RHYTHM: regular rhythm GI: COMMON NORMALS: Normal to inspection, nondistended, normoactive bowel sounds present, Soft to palpation and non-tender INSPECTION: Yes normal to inspection PALPATION: Yes Soft to palpation : COMMON NORMALS: Yes no CVA tenderness BLADDER/KIDNEY EXAM: Yes no CVA tenderness Back/Pelvis: COMMON NORMALS: no CVA tenderness Extremity: COMMON NORMALS: normal to inspection and full ROM Neuro: COMMON NORMALS: patient oriented x3, CN's II-XII intact bilaterally, moves all extremities and no focal motor deficits Psych: COMMON NORMALS: mental status grossly normal, Normal thought process present, cooperative and normal affect THOUGHT PROCESS: Normal thought process present Skin: COMMON NORMALS: no rashes or lesions noted GENERAL SKIN EXAM: no rashes or lesions noted Procedures Jaw Reduction Time Out Performed: Yes Pre-Treatment Medications Used: benzodiazepines Technique used: downward anterior traction and other Reduction successful: No Patient Tolerated Procedure: other (skin tears to angle of the mandibles ) Complications: other (skin tears to the mandibles ) Additional Comments: Both myself and my partner Dr. Curtis attempted to reduce the mandible on 2 separate attempts after being provided the patient etomidate Versed and Ativan to no avail in which additional exercise efforts were discontinued in regards to concerns of mandibular trauma or fracture Course Vital Signs: Vital signs: Vital Signs Pulse Rate 66 09/15/21 13:42 Respiratory Rate 17 09/15/21 13:42 Blood Pressure 164/97 09/15/21 13:42 Pulse Oximetry 98 09/15/21 13:42 MDM - General Adult 2 MDM Narrative: Medical decision making narrative: Due to the patient's symptoms and condition x-ray imaging of the Panorex will be obtained. Notified by nursing staff however unable to provide this as patient as she has a recent hip fracture the daughter did not make as well aware of will be obtaining a CT of the facial bones for further assessment management. Most likely will require a conscious sedation with utilization of etomidate we will continue to follow underlying would like to rule out underlying fractures prior to reduction. CAT scan region did reveal the will need to find a location with ENT services available to transfer the patient to to further reduce this patient's mandible. Underlying concerns were underlying of foreign body retained in the joint versus prolonged being out with spasm of the muscle contributing to the reason why the mandible is not successfully going back in.Superiorly attempted to do the reduction with my partner present this was unsuccessful on 4 separate attempts. Updated the patient and daughter that are agreeable to transfer at this time. Spoke to several facilities for life on acceptance at [facility] in which Dr. Wen with oral maxillofacial surgery is granted excepting of the patient as well as to go ER to ER due to lack of current bed availabili ty in the hospital. Updated the patient's family in which are agreeable to transfer at this time. Lab Data: Labs: Lab Results 09/15/21 09/15/21 09/15/21 08:40 08:40 13:50 WBC 8.5 10^3/uL 10^3/ uL (4.0-10.0) RBC 3.72 10^6/uL L 10 ^6/uL (4.1-5.3) Hgb 11.1 g/dL L g/dL (11.5-15.3) Hct 33.5 % L % (37.0-47.0) MCV 90.1 fl fl (81-99) MCH 29.8 pg pg (28.0-34.0) MCHC 33.1 g/dL g/dL (30.0-36.0) RDW 13.2 % % (12.1-15.1) Plt Count 336 10^3/cmm 10^3 /cmm (130-400) MPV 9.4 fL fL (7.4-10.4) Neut % (Auto) 73.2 % % Lymph % (Auto) 11.1 % % [place] % (Auto) 7.6 % % Eos % (Auto) 6.5 % % Baso % (Auto) 1.1 % % Neut # (Auto) 6.20 10^3/uL 10^3 /uL (1.8-7.7) Lymph # (Auto) 0.9 10^3/uL 10^3/ uL (0.8-4.8) [place] # (Auto) 0.6 10^3/uL 10^3/ uL (0.2-0.9) Eos # (Auto) 0.6 10^3/uL 10^3/ uL (0.0-0.8) Baso # (Auto) 0.1 10^3/uL 10^3/ uL (0.0-0.1) Nucleated RBC % (a uto) 0 % % Nucleated RBCs # 0.0 /100WBC /100W BC Sodium 138 mmol/L mmol/L (136-145) Potassium 3.7 mmol/L mmol/L (3.5-5.1) Chloride 101 mmol/L mmol/L (98-107) Carbon Dioxide 27 mmol/L mmol/L (22-29) Anion Gap 13.7 (5-19) BUN 18 mg/dL mg/dL (8-23) Creatinine 0.6 mg/dL mg/dL (0.5-0.9) GFR Calculation Not Reportable Glucose 96 mg/dL mg/dL (65-115) Calculated Osmolal ity 288 mOsm/kg mOsm/ kg (285-295) Calcium 8.8 mg/dL mg/dL (8.5-10.5) Total Bilirubin 0.8 mg/dL mg/dL (0.15-1.2) AST 23 U/L U/L (0-32) ALT 21 U/L U/L (0-33) Alkaline Phosphata se 163 IU/L H IU/L (35-105) Total Protein 5.7 g/dL L g/dL (6.6-8.7) Albumin 3.1 g/dL L g/dL (3.5-5.2) Globulin 2.6 g/dL g/dL (1.3-4.6) SARS-CoV-2 Ag (Rap id) Negative (Negative) Discharge Plan Discharge Patient Disposition: Transfer to ED Clinical Impression: Dislocation closed, jaw Qualifiers: Encounter type: initial encounter Qualified Code(s): S03.00XA - Dislocation of jaw, unspecified side, initial encounter Condition: Stable Prescriptions: No Action cetirizine [Zyrtec] 10 mg Tablet 10 mg PO DAILY PRN (Reason: Allergy Symptoms) RF: 0 aspirin [Adult Low Dose Aspirin] 81 mg tablet,delayed release (DR/EC) 81 mg PO DAILY Qty: 30 RF: 0 acetaminophen 325 mg Tablet 650 mg PO Q6H PRN (Reason: Pain) RF: 0 bisacodyl 10 mg Suppository 10 mg DC DAILY PRN (Reason: Constipation) RF: 0 atorvastatin 40 mg tablet 20 mg PO BEDTIME@20 RF: 0 alprazolam [Xanax] 0.5 mg Tablet 0.5 mg PO BID PRN (Reason: Anxiety) RF: 0 mineral oil Enema 118 ml DC DAILY PRN (Reason: Constipation) RF: 0 cholecalciferol (vitamin D3) 25 mcg (1,000 unit) Tablet 1,000 unit PO DAILY 30 Days Qty: 30 RF: 0 hydrocodone-acetaminophen 5-325 mg tablet 1 tab PO Q6H PRN (Reason: pain) 7 Days Qty: 28 RF: 0 enoxaparin 30 mg/0.3 mL Syringe 30 mg SUBCUT Q24H 14 Days Qty: 4.2 RF: 0 multivitamin with folic acid [Thera] 400 mcg Tablet 1 tab PO DAILY 30 Days Qty: 30 RF: 0 Discharge Orders: Transfer Out of Facility (Order); Ordered 09/15/21 Ordered By: Larry Neely Referrals: Lee Tyler DO [Primary Care Provider] - Coding Level of Care Code ED Mucking Machine Operator for [facility] Fwd Exam Comprehensive
[2021-09-15 09:05] LABS: Basophils # 0.1 10^3/uL (0.0-0.1); Basophils % 1.1 %; Eosinophils # 0.6 10^3/uL (0.0-0.8); Eosinophils % 6.5 %; Hematocrit 33.5 % (37.0-47.0); Hemoglobin 11.1 g/dL (11.5-15.3); Lymphocytes # 0.9 10^3/uL (0.8-4.8); Lymphocytes % 11.1 %; Mean Corpuscular HGB Conc 33.1 g/dL (30.0-36.0); Mean Corpuscular Hemoglobin 29.8 pg (28.0-34.0); Mean Corpuscular Volume 90.1 fl (81-99); Mean Platelet Volume 9.4 fL (7.4-10.4); Monocytes # 0.6 10^3/uL (0.2-0.9); Monocytes % 7.6 %; Neutrophils % 73.2 %; Nucleated Red Blood Cells % 0 %; Platelet Count 336 10^3/cmm (130-400); Red Blood Count 3.72 10^6/uL (4.1-5.3); Red Cell Distribution Width 13.2 % (12.1-15.1); White Blood Count 8.5 10^3/uL (4.0-10.0)
--- NOTE | 2021-09-15 09:21 | CTR_ITS ---
PROCEDURE INFORMATION: Exam: CT Maxillofacial Without Contrast; Mandible Exam date and time: 09/15/2021 9:21 AM Age: 81 years old Clinical indication: Injury or trauma; Fall; Dislocation; Jaw; Additional info: Mandible dislocation TECHNIQUE: Imaging protocol: Computed tomography maxillofacial without contrast. Exam focused on the mandible. Radiation optimization: All CT scans at this facility use at least one of these dose optimization techniques: automated exposure control; mA and/or kV adjustment per patient size (includes targeted exams where dose is matched to clinical indication); or iterative reconstruction. COMPARISON: CT facial bones wo con* [id number] 09/02/2021 5:41 PM RADIATION DOSE METRICS: Total DLP (mGy-cm): 800.74 FINDINGS: Bones/joints: There is bilateral anterior dislocation of the mandibular condyles out of the glenoid fossae, and into the condylar eminences. No fracture identified. Degenerative changes of the cervical spine seen. Paranasal sinuses: There is partial opacification of the left posterior ethmoid air cells with bubbles of air, suggestive of acute sinusitis. Other paranasal sinuses are well aerated. Soft tissues: Unremarkable. CT/CT facial bones wo con* [id number] IMPRESSION: Bilateral anterior dislocation of the temporomandibular joints. Radiation Dose CTDIVOL = (mGy): DLP = 800.74 (mGy-cm)
[2021-09-15 09:27] LABS: Alanine Aminotransferase 21 U/L (0-33); Albumin Level 3.1 g/dL (3.5-5.2); Alkaline Phosphatase 163 IU/L (35-105); Anion Gap 13.7 (5-19); Aspartate Amino Transferase 23 U/L (0-32); Blood Urea Nitrogen 18 mg/dL (8-23); Calcium 8.8 mg/dL (8.5-10.5); Carbon Dioxide 27 mmol/L (22-29); Chloride 101 mmol/L (98-107); Creatinine Clr Calc Pharmacy 34.7062; Globulin 2.6 g/dL (1.3-4.6); Glucose 96 mg/dL (65-115); Osmolality Calculated 288 mOsm/kg (285-295); Potassium 3.7 mmol/L (3.5-5.1); Sodium 138 mmol/L (136-145); Total Bilirubin 0.8 mg/dL (0.15-1.2); Total Protein 5.7 g/dL (6.6-8.7)
[2021-09-15] MEDS: LORazepam 2 mg/mL INJ 1 mL 1 MG IVP (12:43)
[2021-09-15] MEDS: sodium chloride 0.9% 1,000 ML 999 ML IV (12:43)
[2021-09-15] MEDS: midazolam 1 mg/mL INJ 2 mL 5 MG IVP (13:19)
[2021-09-15] MEDS: bacitracin ointment Pkt 1 EACH TOPICAL (13:26)
[2021-09-15 14:56] LABS: SARS Covid-2 Antigen Negative (Negative)
[2021-09-15] MEDS: morphine 4 mg/mL SDV 1 mL IVP (16:46)
== END 2021-09-15 16:54 ==
PROVIDERS: Emergency Provider Emergency Medicine; PCP Family Medicine
DX: S03.03XA Dislocation of jaw, bilateral, initial encounter (principal); Z79.82 Long term (current) use of aspirin; F03.90 Unspecified dementia, unspecified severity, without behavioral disturbance, psychotic disturbance, mood disturbance, and anxiety; E78.5 Hyperlipidemia, unspecified; I10 Essential (primary) hypertension; X58.XXXA Exposure to other specified factors, initial encounter; Z20.822 Contact with and (suspected) exposure to COVID-19
CPT/HCPCS: 21480; 70486; 80053; 85025; 87426; 96374; 99285; J2060; J2250; J2270; J3490; J7030